=== PATIENT | male | born 1950 | race Caucasian/White ===

== ENCOUNTER 2020-09-14 00:57 | Outpatient (CLI) | payer BC, SELFPAY ==
[2020-09-15 00:20] LABS: SARS-CoV-2 RNA PCR Negative
== END 2020-09-14 00:58 | disposition home or self-care (01) ==
LOC: ANHCOVIDDT 00:57
PROVIDERS: PCP Physician Assistant; Visit Provider Internal Medicine Gastroenterology
DX: Z01.812 Encounter for preprocedural laboratory examination (principal); Z20.822 Contact with and (suspected) exposure to COVID-19
CPT/HCPCS: C9803; U0003; U0005

== ENCOUNTER 2020-09-18 00:49 | Day surgery (SDC) | payer BC, SELFPAY ==
[2020-09-09 08:35] VITALS: BMI 29.2
--- NOTE | 2020-09-17 13:34 | WPDANESEPPF ---
Anes - Initial Pre Proc Eval Procedure: Operation Date: 09/18/20 09:15 Proposed Procedures p Colonoscopy - Nemesio Moore MD Date/Time: 09/17/20 13:34 Surgeon: Nemesio Moore MD Pre Op Diagnosis: occult GI bleed, positive hemocult Patient Data Age: 69 Gender: M Height: 1.8 m Weight: 95 kg Allergies Allergy/AdvReac Type Severity Reaction Status Date / Time erythromycin base Allergy Unknown Nausea Verified 09/18/20 07:53 Penicillins Allergy Unknown Skin Verified 09/18/20 07:53 Reaction procaine Allergy Unknown Rash Verified 09/18/20 07:53 Sulfa (Sulfonamide Allergy Unknown Skin Verified 09/18/20 07:53 Antibiotics) Reaction Home Medications Medication Instructions Recorded Confirmed Type aspirin 81 mg PO DAILY 09/09/20 09/18/20 History atorvastatin 40 mg PO DAILY 09/09/20 09/18/20 History bisoprolol-hydrochlorothiazide 1 tablet PO DAILY 09/09/20 09/18/20 History metformin 1,000 mg PO BID 09/09/20 09/18/20 History quinapril 20 mg PO BID 09/09/20 09/18/20 History sitagliptin [Januvia] 100 mg PO DAILY 09/09/20 09/18/20 History Patient hx anesthesia problems: none Family hx anesthesia problems: none [facility] Past Medical History Medical History (Updated 09/17/20 @ 13:33 by Billy Arellano DO) Diabetes type 2, controlled Hyperlipidemia Hypertension Surgical History Surgical History (Updated 09/17/20 @ 13:33 by Billy Arellano DO) History of appendectomy Social History Social History Smoking status: Never smoker Alcohol intake: never Substance use: never Substance use type: does not use Living arrangements: alone Spiritual care concerns: No Anes - Eval Final PreProcedure Day of Procedure 09/17/20 13:34 Patient weight: overweight Heart: regular rate and rhythm Lungs: clear to auscultation and normal air movement Airway: Mallampati scale class II Neurological: alert and oriented Last oral intake: >/= 8 hours ASA classification: III Emergent: no Anesthetic plan: proceed Anesthesia type and monitoring: general GIVS and standard monitoring Informed Consent: The patient's anesthetic plan and its attendant risks and benefits were discussed with the patient/family/POA. Questions were solicited and answers provided to the satisfaction of the patient/family/POA.
[2020-09-18 07:55] VITALS: BP 161/73; PULSE 62; RESP 15; TEMP 36.1; O2SAT 99; BMI 28.8
[2020-09-18] MEDS: LACTATED RINGERS 1,000 ML 150 ML IV CONT (08:06)
[2020-09-18 08:09] LABS: Glucose Point of Care 155 (65-105)
--- NOTE | 2020-09-18 09:22 | PM.HPGS ---
History of Present Illness History of Present Illness Consent: Risks, benefits, and alternatives have been discussed and questions answered. Patient agrees to proceed with procedure. Chief complaint: occult GI bleed, positive hemocult Narrative: Everette Rosario is a 69 year old male here for screening colonoscopy, last one about 25 years ago. Review of Systems Constitutional: Constitutional: Denies headache(s) and Denies weakness Eyes: Eyes: Denies blurry vision ENT: Reports Normal hearing present, Denies headache(s) and Denies neck pain Cardiovascular: Cardiovascular: Denies chest pain and Denies dyspnea Respiratory: Respiratory: Denies dyspnea Gastrointestinal: Gastrointestinal: Reports no additional gastrointestinal complaints Genitourinary: Genitourinary: Denies dysuria Musculoskeletal: Musculoskeletal: Denies neck pain Integumentary/Breasts: Skin/Breast: Denies dry skin Neurologic: Reports Normal hearing present, Denies headache(s) and Denies weakness Psychiatric: Psychiatric: Denies anxiety Endocrine: Endocrine: Denies change in body appearance Hematologic/Lymphatic: Hematologic/Lymphatic: Denies easy bleeding Allergic/Immunologic: Allergic/Immunologic: Denies urticaria PMFSH Past Medical History Medical History (Updated 09/18/20 @ 09:22 by Nemesio Moore MD) Colon cancer screening Diabetes type 2, controlled Hyperlipidemia Hypertension Surgical History Surgical History (Updated 09/17/20 @ 13:33 by Billy Arellano DO) History of appendectomy Social History Social History Smoking status: Never smoker Alcohol intake: never Substance use: never Substance use type: does not use Living arrangements: alone Spiritual care concerns: No Meds Home Medications and Allergies Home Medications Medication Instructions Recorded Confirmed Type aspirin 81 mg PO DAILY 09/09/20 09/18/20 History atorvastatin 40 mg PO DAILY 09/09/20 09/18/20 History bisoprolol-hydrochlorothiazide 1 tablet PO DAILY 09/09/20 09/18/20 History metformin 1,000 mg PO BID 09/09/20 09/18/20 History quinapril 20 mg PO BID 09/09/20 09/18/20 History sitagliptin [Januvia] 100 mg PO DAILY 09/09/20 09/18/20 History Allergies Allergy/AdvReac Type Severity Reaction Status Date / Time erythromycin base Allergy Unknown Nausea Verified 09/18/20 07:53 Penicillins Allergy Unknown Skin Verified 09/18/20 07:53 Reaction procaine Allergy Unknown Rash Verified 09/18/20 07:53 Sulfa (Sulfonamide Allergy Unknown Skin Verified 09/18/20 07:53 Antibiotics) Reaction Vital Signs Vital Signs - 24 hr 09/18/20 07:55 Temperature 96.9 F L Pulse Rate 62 Respiratory Rate 15 Blood Pressure 161/73 H Pulse Oximetry 99 Exam Const: General: comfortable and no acute distress HENMT: General nose exam: Normal nares present Eyes: General: appearance normal, both eyes and all related structures Neck: Neck: no JVD Resp: Auscultation: clear to auscultation bilaterally Cardio: Rate: regular rate Rhythm: regular rhythm GI: Inspection: non-distended GI Palp: Yes Soft to palpation Skin: General skin exam: normal color Neuro: General: gait normal Speech: normal speech Extrem: General: normal to inspection Psych: Mental Status: mental status grossly normal Assessment and Plan Assessment and plan (1) Colon cancer screening: Code(s): Z12.11 - Encounter for screening for malignant neoplasm of colon Status: Acute Assessment and Plan: will proceed with colonoscopy
[2020-09-18 09:46] VITALS: BP 115/69; PULSE 55; RESP 16; O2SAT 97
[2020-09-18 09:56] VITALS: BP 117/63; PULSE 51; RESP 16; O2SAT 100
[2020-09-18 10:06] VITALS: BP 123/72; PULSE 47; RESP 14; O2SAT 100
[2020-09-18 10:59] LABS: Hematocrit 38.7 % (42.0-52.0); Mean Corpuscular HGB Conc 33.6 g/dl (32-36); Mean Corpuscular Hemoglobin 29.5 pg (26-34); Mean Corpuscular Volume 87.8 fl (80-100); Mean Platelet Volume 9.7 fl (7.4-10.4); Platelet Count Result 215 k/mm3 (150-375); Red Blood Count 4.41 M/mm3 (4.6-6.20); Red Cell Distribution Width 13.4 % (11.5-14.5); White Blood Count 5.8 K/mm3 (4.5-10.0)
--- NOTE | 2020-09-18 11:01 | SUR.PHASEII ---
blood drawn, sent to lab. CT scheduled for pt
[2020-09-18 11:14] LABS: Alanine Aminotransferase 35 U/L (4-50); Albumin Level 4.3 g/dL (3.5-5.1); Alkaline Phosphatase 68 U/L (38-126); Anion Gap 7 mmol/L (8-16); Aspartate Amino Transferase 36 U/L (17-59); Bilirubin,Total 0.6 mg/dL (0.2-1.3); Blood Urea Nitrogen 15 mg/dL (9-20); Calcium 9.1 mg/dL (8.4-10.2); Carbon Dioxide 31 mmol/L (22-30); Chloride 99 mmol/L (98-107); Estimated CRCL calculation 70 ml/min; Estimated Glomerular Filt Rate > 60; Glucose 119 mg/dL (75-110); Potassium 4.1 mmol/L (3.4-5.0); Sodium 137 mmol/L (137-145)
[2020-09-18 11:43] LABS: Carcinoembryonic Antigen 0.5 ng/mL (0.0-3.0)
== END 2020-09-18 11:30 | disposition home or self-care (01) ==
PROVIDERS: PCP Physician Assistant; Visit Provider Internal Medicine Gastroenterology
PROC: 0DJD8ZZ Inspection of Lower Intestinal Tract, Via Natural or Artificial Opening Endoscopic (ICD-10-PCS; CPT 45378; principal; 2020-09-18 09:15)
DX: Z12.11 Encounter for screening for malignant neoplasm of colon (principal); C19 Malignant neoplasm of rectosigmoid junction; D12.2 Benign neoplasm of ascending colon; K57.30 Diverticulosis of large intestine without perforation or abscess without bleeding; I10 Essential (primary) hypertension; E78.5 Hyperlipidemia, unspecified; E11.9 Type 2 diabetes mellitus without complications; Z79.82 Long term (current) use of aspirin; Z79.84 Long term (current) use of oral hypoglycemic drugs
CPT/HCPCS: 45385; 45380; 45381; 36415; 80053; 82378; 85027; 88305; J2704; J7120

== ENCOUNTER 2020-09-24 10:52 | Outpatient (CLI) | payer BC, SELFPAY ==
--- NOTE | ~2020-09-24 | CT_ITS ---
EXAMINATION: CT abdomen pelvis w con DATE: 09/24/2020 11:29 INDICATION: Rectosigmoid mass. TECHNIQUE: Computed tomography (CT) of the abdomen and pelvis was performed with 100 cc Omnipaque 350 intravenous contrast. The dose-length product was 929.79 mGy-cm. Automated exposure control and iter ative reconstruction technique were employed. COMPARISON: None. FINDINGS: There is dependent atelectasis. Mild cardiomegaly. Small hiatal hernia. No significant pleu ral or pericardial effusion. There is atherosclerosis of the coronary arteries and aorta. No aneurysm . Fatty infiltration of the liver. Gallbladder is present. The spleen, pancreas, adrenal glands and rig ht kidney are unremarkable. There is a hypodense 1.3 cm left renal mass, most likely benign cyst. The re is a duodenal diverticulum. Colonic diverticulosis. There is mild thickening of the right lateral wall of the rectum image 165, suspicious for known mass. Prostate gland is mildly prominent with coar se central calcifications. No osteolytic or osteoblastic lesions. Bladder is moderately distended. There are mildly prominent lymph nodes along the external iliac chains with normal fatty hilum, likel y reactive. IMPRESSION: 1. Mild thickening right lateral wall of the rectum, suspicious for known mass. Recommend correlation with colonoscopy findings. 2: Cardiomegaly. 3: Fatty infiltration of the liver. Reviewed, dictated and finalized at location A. S OPERATIONS SPECIALIST
== END 2020-09-24 10:53 | disposition home or self-care (01) ==
PROVIDERS: PCP Physician Assistant; Visit Provider Internal Medicine Gastroenterology
DX: K63.89 Other specified diseases of intestine (principal); I51.7 Cardiomegaly; K76.0 Fatty (change of) liver, not elsewhere classified
CPT/HCPCS: 74177; Q9967

== ENCOUNTER 2020-10-09 14:30 | Outpatient (CLI) | payer BC, SELFPAY | END 2020-10-09 14:31 | disposition home or self-care (01) | LOC: ANHIMG 14:31 | PROVIDERS: PCP Physician Assistant; Visit Provider Surgery | DX: C20 Malignant neoplasm of rectum (principal) | CPT/HCPCS: 99199; 72195 ==

== ENCOUNTER 2020-10-10 13:32 | Outpatient (CLI) | payer BC, SELFPAY ==
--- NOTE | ~2020-10-10 | MR_ITS ---
EXAMINATION: MR pelvis wo/w con INDICATION: Rectal cancer TECHNIQUE: Coronal SSFSE ARC, Coronal, Axial, and Sagittal T2 FRFSE small qpahd-za-zchj, Coronal 2D F IESTA FatSat, Axial SSFSE BH ARC, Axial 3D DualEcho BH, Axial STIR, Axial DWI b=500, pre and dynamic postcontrast Axial LAVA ARC COMPARISON: CT, 09/24/2020 CONTRAST: Multihance, 19 cc FINDINGS: There is asymmetric rectal wall thickening approximately 10 cm from the anal verge in the a laly of the biopsied malignancy described on recent colonoscopy. Enhancement involves the full-thickne ss of the rectal wall but does not appear to extend beyond the muscularis propria. No pathologically enlarged perirectal lymph nodes are identified. There are left groin lymph nodes which measure up to 11 mm in short axis. There are no dilated loops of bowel. Multiple bladder diverticula are noted. The visualized osseous structures are unremarkable. IMPRESSION: 1. Asymmetric wall thickening of the rectum in the area of the known malignancy described in colonosc opy report which does not appear to extend beyond the muscularis propria. 2. Left inguinal lymphadenopathy of unclear significance. Reviewed, dictated and finalized at location A. AUDITOR IMPRESSION: 1. Asymmetric wall thickening of the rectum in the area of the known malignancy described in colonoscopy report which does not appear to extend beyond the mus cularis propria. 2. Left inguinal lymphadenopathy of unclear significance.
== END 2020-10-10 13:33 | disposition home or self-care (01) ==
PROVIDERS: PCP Physician Assistant; Visit Provider Surgery
DX: C20 Malignant neoplasm of rectum (principal); R59.0 Localized enlarged lymph nodes
CPT/HCPCS: 72197; A9577

== ENCOUNTER 2020-10-22 13:38 | Outpatient (CLI) | payer BC, SELFPAY ==
--- NOTE | 2020-10-22 14:34 | ECG_ITS ---
Measurements Intervals Raymond Rate: 54 P: 72 LA: 233 QRS: -34 QRSD: 155 T: 7 QT: 475 QTc: 453 Interpretive Statements SINUS BRADYCARDIA WITH FIRST DEGREE AV BLOCK LEFT AXIS DEVIATION RIGHT BUNDLE BRANCH BLOCK BASELINE ARTIFACT- I, II, III, AVR, AVL, AVF ABNORMAL ECG Electronically Signed On 10-22-2020 14:44:32 MANAGER BENCH by Nader Sanchez D.O.
== END 2020-10-22 13:39 | disposition home or self-care (01) ==
LOC: ANHSURGERY 13:41
PROVIDERS: PCP Physician Assistant; Visit Provider Surgery
DX: C20 Malignant neoplasm of rectum (principal); I10 Essential (primary) hypertension; I45.10 Unspecified right bundle-branch block; R00.1 Bradycardia, unspecified; I44.0 Atrioventricular block, first degree
CPT/HCPCS: 36415; 86850; 86900; 86901; 93005

== ENCOUNTER → 2020-10-26 00:49 | Outpatient (CLI) | payer BC, SELFPAY ==
[2020-10-26 19:47] LABS: SARS-CoV-2 RNA PCR Negative
== END ==
PROVIDERS: PCP Physician Assistant; Visit Provider Surgery
DX: Z01.812 Encounter for preprocedural laboratory examination (principal); Z20.822 Contact with and (suspected) exposure to COVID-19
CPT/HCPCS: C9803; U0003; U0005

== ENCOUNTER 2020-10-30 15:29 | Inpatient (IN) | payer BC, MEDICARE, SELFPAY ==
[2020-10-22 14:17] VITALS: BP 172/78; PULSE 58; RESP 20; TEMP 36.9; O2SAT 97; BMI 30.3
--- NOTE | 2020-10-29 09:45 | WPDANESEPPF ---
Anes - Initial Pre Proc Eval Procedure: Operation Date: 10/30/20 09:00 Proposed Procedures p Hand Assisted Laparoscopic Low Anterior Resection, Possible Open, Possible Ostomy - Pawel Banks DO Date/Time: 10/29/20 09:45 Surgeon: Pwael Banks DO Pre Op Diagnosis: Rectal Cancer Patient Data Age: 70 Gender: M Height: 1.8 m Weight: 98.7 kg Last Vital Signs Temp 36.9 C 10/22/20 14:17 Pulse 58 L 10/22/20 14:17 Resp 20 10/22/20 14:17 BP 172/78 H 10/22/20 14:17 Pulse Ox 97 10/22/20 14:17 Allergies Allergy/AdvReac Type Severity Reaction Status Date / Time erythromycin base Allergy Unknown Nausea Verified 10/30/20 07:55 Penicillins Allergy Unknown Skin Verified 10/30/20 07:55 Reaction procaine Allergy Unknown Rash Verified 10/30/20 07:55 Sulfa (Sulfonamide Allergy Unknown Skin Verified 10/30/20 07:55 Antibiotics) Reaction Home Medications Medication Instructions Recorded Confirmed Type aspirin 81 mg PO DAILY 09/09/20 10/30/20 History atorvastatin 40 mg PO DAILY 09/09/20 10/29/20 History bisoprolol-hydrochlorothiazide 1 tablet PO DAILY 09/09/20 10/30/20 History metformin 1,000 mg PO BID 09/09/20 10/29/20 History quinapril 20 mg PO BID 09/09/20 10/29/20 History sitagliptin [Januvia] 100 mg PO DAILY 09/09/20 10/29/20 History metronidazole 500 mg tablet See Rx Instructions .ROUTE 10/22/20 10/29/20 Rx .COMPLEX #3 tablet pdtjoafg-fhk-NS-lycopen-lutein 1 tablet PO DAILY 10/22/20 10/29/20 History [Centrum Silver Ultra Men's] jm-np-raax-FA-herbal cmplx#190 1 tablet PO DAILY 10/22/20 10/29/20 History [Vitamin D3 Complete] neomycin 500 mg tablet See Rx Instructions .ROUTE 10/22/20 10/29/20 Rx .COMPLEX #6 tablet omega 9-unm-iii-fish oil [Fish Oil] 1 cap PO DAILY 10/22/20 10/29/20 History Patient hx anesthesia problems: none Family hx anesthesia problems: none [facility] Past Medical History Medical History Colon cancer screening Colon carcinoma Diabetes type 2, controlled Hyperlipidemia Hypertension Surgical History Surgical History History of appendectomy History of colonoscopy History of eye surgery Family History Family History Father Cerebrovascular accident Dementia Diverticulitis Mother Diabetes mellitus Heart disease Dementia Sibling Cancer Social History Social History Smoking status: Former smoker Tobacco type: cigars Second hand tobacco smoke exposure: No Alcohol intake: never Substance use: never Substance use type: does not use Living arrangements: alone Additional occupation/education comments: [employer] Spiritual care concerns: No Anes - Eval Final PreProcedure Day of Procedure 10/29/20 09:45 Patient weight: obese Heart: regular rate and rhythm Lungs: clear to auscultation and normal air movement Airway: Mallampati scale class II Neurological: alert and oriented Last oral intake: >/= 8 hours ASA classification: III Emergent: no Anesthetic plan: proceed Anesthesia type and monitoring: general ETT Informed Consent: The patient's anesthetic plan and its attendant risks and benefits were discussed with the patient/family/POA. Questions were solicited and answers provided to the satisfaction of the patient/family/POA.
[2020-10-30] VITALS (16 sets, daily range): BP systolic 104–178; BP diastolic 57–97; PULSE 55–71; RESP 10–20; TEMP 36.1–36.7; O2SAT 98–100
[2020-10-30] MEDS: ACETAMINOPHEN 500 MG TABLET 1000 MG PO ×3 (08:05→23:36)
[2020-10-30] MEDS: LACTATED RINGERS 1,000 ML 30 ML IV CONT ×2 (08:19→13:41)
[2020-10-30] MEDS: KETOROLAC 15 MG/ML VIAL (*BKC) IV PUSH (08:20)
[2020-10-30 08:25] LABS: Glucose Point of Care 141 (65-105)
--- NOTE | 2020-10-30 08:29 | WPDHPUPDATE1 ---
History and Physical Update Update Date/Time: 10/30/20 08:29 History and Physical has been reviewed, including an updated exam of the patient. There are NO changes in the patient's condition. Risks, benefits, and alternatives have been discussed and questions answered. Patient agrees to proceed with procedure.
--- NOTE | 2020-10-30 08:56 | WPDANESPNB ---
Anes - Peripheral Nerve Block Date/Time: 10/30/20 08:56 I have discussed with the patient/family/POA the placement of a peripheral nerve block for post-operative pain management, including associated risks, benefits, complications, and side effects. Alternative methods of post-operative analgesia were detailed. Questions were solicited and answers provided to the satisfaction of the patient/family/POA. Time-Out: A pre-procedural Time-Out was completed immediately before starting the procedure and confirmed: Patient Identification, Site, Procedure, Patient Position and the Availability of Requisite Equipment. Clinical Indications: Acute post-operative pain management requested by the operative surgeon. Nerve Block Insertion Note Anes-nerve block: other (b/l t7 maximo block) Patient position: other (sitting) Skin prep: chlorhexidine Needle: 22 gauge, stimulating, insulated echogenic needle. Needle length: 80 mm Technique: ultrasound Technique comment: in plane Injectate: bupivacaine 0.5% with epi 5 mcg/ml (20cc/side) Procedure start time:: 845 Procedure end time:: 850
[2020-10-30] MEDS: ceFAZolin 2 GM/D5W 50 ML 2 GM/50 ML BAG IVPB (09:05)
[2020-10-30] MEDS: metroNIDAZOLE 500 MG/ISO 100ML 500 MG/100 ML BAG 100 MG IVPB (09:05)
--- NOTE | 2020-10-30 10:15 | SUR.OPER ---
PHARMACY CALLED PRIOR TO OR START TO VERIFY PROCAINE ALLERGY AND USE OF EXPAREL/PHARMACIST VERIFIED EXPAREL CAN BE USED AND ANESTHESIA AWARE AND DR CHAKRABORTY AWARE.
--- NOTE | 2020-10-30 10:34 | SUR.OPER ---
BOWEL PREP AT 0921 PER M WALKER DIGITAL RETOUCHER/1000ML IV NS IRRIGATION INSTILLED IN INCREMENTS OF 200ML TOTALING 820MLS TOTAL TILL CLEAR SLOWLY VIA MALECOT 36FR. FOLLOWING SALINE WITH A BETADINE IRRIGATION VIA BULB SYRINGE 400ML. RECTAL MALECOT TUBE CONNECTED TO A 2000ML U/A BAG SECURED VIA STRAP TO POSTERIOR LEFT THIGH/GAUZE PADDING BETWEEN TUBING AND SKIN/BAG TO GRAVITY AT FOOT OF BED AND DRAINING BETADINE.
--- NOTE | 2020-10-30 11:32 | SUR.OPER ---
SEE ANESTHESIA RECORD FOR SPY AGENT GREEN 25MG PER VIAL/LOT , EXP NOV 2021. SEE RECORD FOR IV ADMINISTRATION
--- NOTE | 2020-10-30 11:45 | SUR.OPER ---
SPECIMEN FRESH TO PATHOLOGY PER PCT NO AND GIVEN TO CIERRA Hobbs. (SIGMOID/RECTUM)
--- NOTE | 2020-10-30 11:58 | SUR.OPER ---
BLOOD SUGAR [id number].
[2020-10-30 12:07] LABS: Glucose Point of Care 195 (65-105)
--- NOTE | 2020-10-30 12:39 | SUR.OPER ---
ostomy 12:39 start
--- NOTE | 2020-10-30 12:58 | SUR.OPER ---
EBL 200ML
[2020-10-30] MEDS: ceFAZolin SODIUM 1 GM VIAL IV PUSH (13:05)
--- NOTE | 2020-10-30 13:44 | PM.PROC ---
Procedure Note - Detailed Date of procedure: 10/30/20 Pre-op diagnosis: Rectal Cancer Post-op diagnosis: same Procedure performed: 1. Hand assisted laparoscopic low anterior resection with low pelvic anastomosis, with loop ileostomy 2. Laparoscopic mobilization of splenic flexure Description of procedure: Procedure as well as risks benefits and alternatives were explained to the patient. Written consent was obtained and placed in chart prior to procedure. Patient was brought back to surgical suite. He was placed supine on operating table. Time-out was done to confirm patient procedure. He was then intubated by the anesthesia department. He was re-positioned to modified lithotomy position. His abdomen was prepped and draped in sterile fashion using chlorhexidine prep. His rectum was irrigated with Betadine and his perirectal area was prepped and draped in sterile fashion using Betadine prep. A 7 centimeter vertical incision was made just inferior to the umbilicus using a 15 blade scalpel. Electrocautery was used for hemostasis and for dissection down through Rob's fascia. The linea alba was then incised using electrocautery. The peritoneum was bluntly entered using a curved hemostats. A carefully inspected the abdomen through the small hand port incision, and then placed the wound protector at this incision followed by the gel port with a 5 millimeter trocar placed through it. Carbon dioxide insufflation was then used to create a pneumoperitoneum. The abdomen was inspected, and no significant abnormalities were identified. The patient was then placed in steep Trendelenburg position and rotated to the right. Exparel was infiltrated bilaterally along the abdominal wall to perform a transversus abdominis plane block. A 5 millimeter incision was made in the suprapubic region and in the right upper quadrant and 5 millimeter ports were placed under direct visualization. A 12 millimeter incision was made in the right lower quadrant, and a 12 millimeter port was placed under direct visualization. Another 5 mm port was placed in the left lower quadrant under direct visualization. I placed my left hand through the GelPort and carefully inspected the colon. The sigmoid colon was retracted anteriorly to tent up the inferior mesenteric artery and mesocolon. The medial side of the peritoneum was scored using hook electrocautery. I entered into the avascular retroperitoneal plane and continued the medial to lateral dissection. The left ureter was identified and preserved in its location throughout the entire case. I continued dissection with hook electrocautery and ligasure bipolar cautery to clear off the adventitia around the inferior mesenteric artery. Once the inferior mesenteric artery was isolated, I then ligated it with the ligasure bipolar cautery. The ureter was identified and position was verified before ligating the vessel. I then continued along the medial to lateral plane and dissected out to the lateral peritoneal attachments of the descending and sigmoid colon. I then continued this dissection distally along the upper rectum. The sigmoid colon was then retracted further medially and the lateral peritoneal attachments were taken down using hook electrocautery. I continued this dissection up to the descending colon, and as I a required further mobilization of the descending colon I then took down the splenic flexure using ligasure bipolar cautery. The descending colon appeared mobile enough to come down into the pelvis. I then continued the dissection along the mesorectal plane down low into the pelvis and on to the distal rectum. I began this dissection posteriorly and then came along each lateral side with LigaSure. I then also incised the peritoneum anteriorly and continued the total mesial rectal excision plane anteriorly. I was able to identify the tattooed region and ensure that I was distal to this. The echelon 60 millimeter blue load stapler
--- NOTE | 2020-10-30 15:33 | PC.NURSE ---
This patient, Everette Rosario, was admitted to 3 [facility] Surg Room 300-01. Patient/family oriented to hospital policies and general routines including ID bracelet, bed and alarms, visiting hours, pain management, procedures, bathroom and other care routines, personal items, smoking policy, room service/diet, and visiting hours. Information on how to activate the Rapid Response Team has been discussed. Patient/Family are encouraged to report perceived risks to care and to ask questions if they do not understand what they are told or what they should do.
[2020-10-30] MEDS: ONDANSETRON INJ 4 MG/2 ML VIAL IV PUSH (15:50)
[2020-10-30] MEDS: LACTATED RINGERS 1,000 ML 100 ML IV CONT (15:52)
[2020-10-30 17:28] LABS: Glucose Point of Care 142 (65-105)
[2020-10-30] MEDS: ENOXAPARIN 30 MG/0.3 ML SYRINGE SUB-Q (20:04)
[2020-10-30 20:28] LABS: Glucose Point of Care 146 (65-105)
[2020-10-30 20:39] LABS: Glucose Point of Care 162 (65-105)
[2020-10-31] MEDS: LACTATED RINGERS 1,000 ML 100 ML IV CONT (01:54)
[2020-10-31 04:18] VITALS: BP 132/59; PULSE 71; RESP 18; TEMP 36.7; O2SAT 98
[2020-10-31 06:16] LABS: Basophils Percent Auto 0.1 % (0.2-1.2); Hematocrit 31.7 % (42.0-52.0); Hemoglobin 10.5 g/dL (14.0-18.0); Immature Granulocyte Absolute 0.23 K/mm3 (0.00-0.031); Immature Granulocyte Percent A 2.9 % (0-0.5); Lymphocytes Absolute Auto 0.88 K/mm3 (0.9-3.2); Lymphocytes Percent Auto 10.9 % (18.3-44.2); Mean Corpuscular HGB Conc 33.1 g/dl (32-36); Mean Corpuscular Hemoglobin 29.1 pg (26-34); Mean Corpuscular Volume 87.8 fl (80-100); Mean Platelet Volume 10.4 fl (7.4-10.4); Monocytes Absolute Auto 0.8 K/mm3 (0.1-0.6); Monocytes Percent Auto 10.2 % (2.6-8.5); Neutrophils Absolute Auto 6.1 K/mm3 (1.3-6.7); Neutrophils Percent Auto 75.9 % (45.5-73.1); Platelet Count Result 184 k/mm3 (150-375); Red Blood Count 3.61 M/mm3 (4.6-6.20); Red Cell Distribution Width 13.7 % (11.5-14.5); White Blood Count 8.1 K/mm3 (4.5-10.0)
[2020-10-31] MEDS: ACETAMINOPHEN 500 MG TABLET 1000 MG PO ×4 (06:22→23:37)
[2020-10-31 06:24] LABS: Anion Gap 3 mmol/L (8-16); Blood Urea Nitrogen 12 mg/dL (9-20); Calcium 8.2 mg/dL (8.4-10.2); Carbon Dioxide 29 mmol/L (22-30); Chloride 106 mmol/L (98-107); Estimated CRCL calculation 100 ml/min; Estimated Glomerular Filt Rate > 60; Glucose 127 mg/dL (75-110); Potassium 4.2 mmol/L (3.4-5.0); Sodium 138 mmol/L (137-145)
--- NOTE | 2020-10-31 06:55 | PC.NURSE ---
10/31/20 at 2145--assisted patient out of bed, ambulated to door and back to bed with 2 assist, patient tolerated well.--TDialRNC
--- NOTE | 2020-10-31 07:59 | WPDANESPN ---
Anes - Prog Note Post-Op Date/Time: 10/31/20 07:59 Cardiovascular status: normal Respiratory status: normal Airway patency: baseline Mental status: baseline Post-Op hydration status: normal Vital Signs: Last Vital Signs Temp 98.0 F 10/31/20 04:18 Pulse 71 10/31/20 04:18 Resp 18 10/31/20 04:18 BP 132/59 L 10/31/20 04:18 Pulse Ox 98 10/31/20 04:18 Pain Score (VAS): 09/01 I/O: Intake & Output 10/30/20 10/30/20 10/31/20 15:59 23:59 07:59 Intake Total 7284 652 6772 Output Total 40 1000 Balance 1010 240 250 Laboratory Tests 10/31/20 05:09 10/31/20 05:09 10/30/20 10/30/20 10/30/20 08:18 11:57 13:48 WBC RBC Hgb Hct MCV MCH MCHC RDW Plt Count MPV Immature Gran % (Auto) Neut % (Auto) Lymph % (Auto) [place] % (Auto) Eos % (Auto) Baso % (Auto) Lymph # (Auto) [place] # (Auto) Eos # (Auto) Baso # (Auto) Abs Immat Gran (auto) Absolute Neuts (auto) Absolute Nucleated RBC Nucleated RBC % Sodium Potassium Chloride Carbon Dioxide Anion Gap BUN Creatinine Estim Creat Clear Calc Estimated GFR Glucose POC Capillary Glucose 141 H 195 H 162 H Calcium 10/30/20 10/30/20 10/31/20 17:25 20:22 05:09 WBC 8.1 RBC 3.61 L Hgb 10.5 L Hct 31.7 L MCV 87.8 MCH 29.1 MCHC 33.1 RDW 13.7 Plt Count 184 MPV 10.4 Immature Gran % (Auto) 2.9 H Neut % (Auto) 75.9 H Lymph % (Auto) 10.9 L [place] % (Auto) 10.2 H Eos % (Auto) 0.0 Baso % (Auto) 0.1 L Lymph # (Auto) 0.88 L [place] # (Auto) 0.8 H Eos # (Auto) 0.0 Baso # (Auto) 0.0 Abs Immat Gran (auto) 0.23 H Absolute Neuts (auto) 6.1 Absolute Nucleated RBC 0.0 Nucleated RBC % 0.0 Sodium Potassium Chloride Carbon Dioxide Anion Gap BUN Creatinine Estim Creat Clear Calc Estimated GFR Glucose POC Capillary Glucose 142 H 146 H Calcium 10/31/20 05:09 WBC RBC Hgb Hct MCV MCH MCHC RDW Plt Count MPV Immature Gran % (Auto) Neut % (Auto) Lymph % (Auto) [place] % (Auto) Eos % (Auto) Baso % (Auto) Lymph # (Auto) [place] # (Auto) Eos # (Auto) Baso # (Auto) Abs Immat Gran (auto) Absolute Neuts (auto) Absolute Nucleated RBC Nucleated RBC % Sodium 138 Potassium 4.2 Chloride 106 Carbon Dioxide 29 Anion Gap 3 L BUN 12 Creatinine 0.70 Estim Creat Clear Calc 100 Estimated GFR > 60 Glucose 127 H POC Capillary Glucose Calcium 8.2 L Patient Feedback: Patient satisfied with anesthetic care.
[2020-10-31 08:00] VITALS: BP 139/60; PULSE 65; RESP 16; TEMP 36.1; O2SAT 98
[2020-10-31 08:14] LABS: Glucose Point of Care 132 (65-105)
[2020-10-31 08:32] VITALS: PULSE 64
[2020-10-31] MEDS: bisoproloL fumarate 5 MG TABLET PO (08:32)
[2020-10-31] MEDS: ASPIRIN 81 MG CHEWABLE TABLET PO (08:32)
[2020-10-31] MEDS: hydroCHLOROthiazide 6.25 MG TABLET PO (08:32)
[2020-10-31] MEDS: ATORVASTATIN 40 MG TABLET PO (08:32)
[2020-10-31] MEDS: ENOXAPARIN 30 MG/0.3 ML SYRINGE SUB-Q ×2 (08:33→20:42)
--- NOTE | 2020-10-31 10:41 | PM.PNGS ---
Progress Note: A&P Assessment and Plan (1) Rectal cancer: Code(s): C20 - Malignant neoplasm of rectum Status: Acute Assessment and Plan: POD#1 and doing well. Pain well-controlled. Incisions look good and passing some gas through the loop ileostomy. Wound care nurses consulted for education on ostomy care. Will have the nurse D/C guerrero catheter today. Advance to full liquids. Stop IVF and add oral analgesics as needed. Awaiting return of bowel function. Encouraged increasing activity, ambulating in halls, IS use. (2) Diabetes type 2, controlled: Qualifiers: Diabetes mellitus complication status: without complication Diabetes mellitus longterm insulin use: without intermediate teacher use Qualified Code(s): E11.9 - Type 2 diabetes mellitus without complications Code(s): E11.9 - Type 2 diabetes mellitus without complications Status: Acute Assessment and Plan: BS 130-140's. Consider restarting home medications when tolerating a full liquid diet. (3) Hypertension: Qualifiers: Hypertension type: essential hypertension Qualified Code(s): I10 - Essential (primary) hypertension Code(s): I10 - Essential (primary) hypertension Status: Acute Assessment and Plan: BP stable. Continue to monitor. Additional Plan Discussed plan of care with Dr. Banks. Subjective Subjective Date/Time Seen: 10/31/20 10:41 Post Op day: 1 (DANIELLA low anterior resection with loop ileostomy, lap. mobilization of splenic flexure) Patient reports: tolerating liquids well, flatus and nausea Interval history: Reports passing gas into the ileostomy bag and also via rectum. Reports one episode of vomiting after surgery yesterday afternoon, but no vomiting since. Reports still some mild intermittent nausea, but states this is normal for him with sinus drainage. No other complaints. Review of Systems Review of Systems: All systems reviewed & are unremarkable except as noted in HPI and below Cardiovascular: Cardiovascular: Reports no additional cardiovascular complaints, Denies chest pain and Denies leg edema Respiratory: Respiratory: Reports no additional respiratory complaints, Denies cough and Denies dyspnea Gastrointestinal: Gastrointestinal: Reports as per HPI and Reports no additional gastrointestinal complaints Exam Const: General: no acute distress, alert and awake Orientation/consciousness: patient oriented x3 Resp: Effort & Inspection: normal respiratory effort Auscultation: clear to auscultation bilaterally Cardio: Rate: regular rate Rhythm: regular rhythm GI: Inspection: incision (Abdominal incisions clean and dry, glue intact.) GI Palp: Yes Soft to palpation and Yes Tenderness to palpation present (GI) (incisional) Auscultation: normal bowel sounds Other: Right sided ileostomy with dark pink, mildly edematous stoma, minimal serosanguineous drainage and some gas in the bag. Skin: General skin exam: pallor Rashes: no rashes Neuro: General: moves all extremities and no focal motor deficits Cranial nerves: Yes CN's II-XII intact bilaterally Speech: normal speech Extrem: General: no clubbing, cyanosis or edema and no calf tenderness Psych: Mental Status: mental status grossly normal Insight: Good insight present (Psych) Judgement: Good judgement present (Psych) Objective Data Vital Signs Vital Signs: Vital Signs - 24 hr 10/30/20 13:41 10/30/20 13:56 10/30/20 14:11 Temperature 97.8 F Pulse Rate 61 56 L 55 L Respiratory Rate 14 17 12 Blood Pressure 151/97 H 143/66 H 149/62 H Pulse Oximetry 100 100 100 10/30/20 14:26 10/30/20 14:41 10/30/20 14:56 Temperature Pulse Rate 56 L 59 L 58 L Respiratory Rate 12 10 L 11 L Blood Pressure 104/87 167/73 H 169/75 H Pulse Oximetry 100 98 98 10/30/20 15:11 10/30/20 15:26 10/30/20 15:29 Temperature 97.0 F L Pulse Rate 62 68 61 Respiratory Rate 10 L 20 16 Blood Pressure 172/72 H 166/74 H 147/70 H Pulse
[2020-10-31 11:56] LABS: Glucose Point of Care 178 (65-105)
[2020-10-31 12:00] VITALS: BP 129/55; PULSE 55; RESP 16; TEMP 36.3; O2SAT 100
[2020-10-31 17:37] LABS: Glucose Point of Care 119 (65-105)
[2020-10-31] MEDS: metFORMIN HCL 500 MG TABLET 1000 MG PO (17:59)
[2020-10-31] MEDS: FLUTICASONE PROPIONATE 0.05% NA SPR 16 GM BTL (*BKC) 2 SPRAY NASAL (18:00)
[2020-10-31 21:11] LABS: Glucose Point of Care 137 (65-105)
[2020-10-31 21:51] VITALS: BP 166/65; PULSE 58; RESP 18; TEMP 36.8; O2SAT 100
[2020-11-01 05:32] VITALS: BP 149/73; PULSE 65; RESP 18; TEMP 36.7; O2SAT 98
[2020-11-01 06:24] LABS: Alanine Aminotransferase 23 U/L (4-50); Albumin Level 3.3 g/dL (3.5-5.1); Alkaline Phosphatase 48 U/L (38-126); Anion Gap 2 mmol/L (8-16); Aspartate Amino Transferase 34 U/L (17-59); Bilirubin,Total 0.6 mg/dL (0.2-1.3); Blood Urea Nitrogen 9 mg/dL (9-20); Calcium 8.2 mg/dL (8.4-10.2); Carbon Dioxide 31 mmol/L (22-30); Chloride 104 mmol/L (98-107); Estimated CRCL calculation 87 ml/min; Estimated Glomerular Filt Rate > 60; Glucose 122 mg/dL (75-110); Sodium 137 mmol/L (137-145)
[2020-11-01] MEDS: ACETAMINOPHEN 500 MG TABLET 1000 MG PO (06:46)
[2020-11-01 08:11] VITALS: BP 164/74; PULSE 63; RESP 16; O2SAT 98
[2020-11-01 08:14] VITALS: PULSE 63
[2020-11-01] MEDS: hydroCHLOROthiazide 6.25 MG TABLET PO (08:14)
[2020-11-01] MEDS: ATORVASTATIN 40 MG TABLET PO (08:14)
[2020-11-01] MEDS: ASPIRIN 81 MG CHEWABLE TABLET PO (08:14)
[2020-11-01] MEDS: bisoproloL fumarate 5 MG TABLET PO (08:14)
[2020-11-01] MEDS: metFORMIN HCL 500 MG TABLET 1000 MG PO ×2 (08:15→19:27)
[2020-11-01] MEDS: ENOXAPARIN 30 MG/0.3 ML SYRINGE SUB-Q ×2 (08:15→20:33)
[2020-11-01] MEDS: FLUTICASONE PROPIONATE 0.05% NA SPR 16 GM BTL (*BKC) 2 SPRAY NASAL (08:16)
[2020-11-01 09:03] LABS: Glucose Point of Care 122 (65-105)
--- NOTE | 2020-11-01 12:03 | PM.PNGS ---
Progress Note: A&P Assessment and Plan (1) Rectal cancer: Code(s): C20 - Malignant neoplasm of rectum Status: Acute Assessment and Plan: Final pathology still pending Advance to diabetic regular diet today Increase activity As long as ileostomy is functioning and patient able to handle wound care at home, will plan to possibly discharge tomorrow. Will arrange hypaque enema as outpatient in 2 weeks Patient advised on risks of dehydration from ileostomy fluid losses, and also advised that a couple small bowel movements from the rectum or passing blood clots/mucus is normal (2) BMI 29.0-29.9,adult: Code(s): Z68.29 - Body mass index [BMI] 29.0-29.9, adult Status: Acute (3) Diabetes type 2, controlled: Qualifiers: Diabetes mellitus manager terminal insulin use: without manager terminal use Diabetes mellitus complication status: without complication Qualified Code(s): E11.9 - Type 2 diabetes mellitus without complications Code(s): E11.9 - Type 2 diabetes mellitus without complications Status: Acute Assessment and Plan: On home meds (4) Hypertension: Qualifiers: Hypertension type: essential hypertension Qualified Code(s): I10 - Essential (primary) hypertension Code(s): I10 - Essential (primary) hypertension Status: Acute Assessment and Plan: On home meds Subjective Subjective Date/Time Seen: 11/01/20 12:03 Interval history: Tolerating full liquids. No nausea or vomiting. Output picking up in ileostomy. Patient had ileostomy teaching today. Exam GI: Inspection: incision (intact with glue. minimal bruising.) Other: loop ileostomy with stool output, mild edema but appears healthy and functioning Objective Data Vital Signs Vital Signs: Vital Signs - 24 hr 10/31/20 21:51 11/01/20 05:32 11/01/20 08:11 Temperature 36.8 C 36.7 C Pulse Rate 58 L 65 63 Respiratory Rate 18 18 16 Blood Pressure 166/65 H 149/73 H 164/74 H Pulse Oximetry 100 98 98 11/01/20 08:14 Temperature Pulse Rate 63 Respiratory Rate Blood Pressure Pulse Oximetry Intake/Output Intake/Output: Intake & Output 10/29/20 10/30/20 10/31/20 11/01/20 23:59 23:59 23:59 23:59 Intake Total 1290 3190 850 Output Total 40 2100 1625 Balance 1250 1090 -903 Meds/Results Medications: Active Medications Generic Name Dose Route Start Last Admin Trade Name Freq PRN Reason Stop Dose Admin Acetaminophen 650 mg 11/01/20 11:42 Acetaminophen 325 Mg Tablet PO Q6HR PRN Mild Pain (1-3) Hydrocodone Bitart/Acetaminophen 1 tab 10/31/20 12:24 Hydrocodone/Acetaminophen (*Crx) 5-325 Mg Tablet PO Q4H PRN Pain Rated 4-6 Hydrocodone Bitart/Acetaminophen 1 tab 10/31/20 12:24 Hydrocodone/Acetaminophen (*Crx) 10-325 Mg Tablet PO Q4H PRN Pain Rated 7-10 Aspirin 81 mg 10/31/20 08:00 11/01/20 08:14 Aspirin 81 Mg Chewable Tablet PO 81 mg DAILY@0800 ALAN Administration Atorvastatin Calcium 40 mg 10/31/20 09:00 11/01/20 08:14 Atorvastatin 40 Mg Tablet PO 40 mg DAILY ALAN Administration Bisoprolol Fumarate 5 mg 10/31/20 09:00 11/01/20 08:14 Bisoprolol Fumarate 5 Mg Tablet PO 5 mg QAM ALAN Administration Dextrose 12.5 gm 10/31/20 12:27 Dextrose 50% 25 Gm/50 Ml Syringe IV PUSH PRN PRN Hypoglycemia Protocol Enoxaparin Sodium 30 mg 10/30/20 21:00 11/01/20 08:15 Enoxaparin 30 Mg/0.3 Ml Syringe SUB-Q 30 mg Q12HR ALAN Administration Fluticasone Propionate 2 spray 10/31/20 10:45 11/01/20 08:16 Fluticasone Propionate 0.05% Na Spr 16 Gm Btl (*Bkc) NASAL 2 spray QAM ALAN Administration Glucagon 1 mg 10/31/20 12:27 Glucagon For Inj 1 Mg Vial IM PRN PRN Hypoglycemia Protocol Hydrochlorothiazide 6.25 mg 10/31/20 09:00 11/01/20 08:14 Hydrochlorothiazide 6.25 Mg Tablet PO 6.25 mg QAM ALAN Administration Hydromorphone HCl 0.5 mg 10/31
[2020-11-01 12:56] LABS: Glucose Point of Care 90 (65-105)
[2020-11-01 14:00] VITALS: BP 148/67; PULSE 62; RESP 16; TEMP 36.8; O2SAT 100
[2020-11-01 18:02] LABS: Glucose Point of Care 111 (65-105)
[2020-11-01 22:00] VITALS: BP 168/78; PULSE 68; RESP 18; TEMP 37.1; O2SAT 99
[2020-11-02 02:02] LABS: Glucose Point of Care 155 (65-105)
[2020-11-02 05:49] VITALS: BP 157/69; PULSE 62; RESP 18; TEMP 35.9; O2SAT 99
[2020-11-02 06:51] LABS: Hematocrit 32.8 % (42.0-52.0); Hemoglobin 10.9 g/dL (14.0-18.0); Mean Corpuscular HGB Conc 33.2 g/dl (32-36); Mean Corpuscular Hemoglobin 28.8 pg (26-34); Mean Corpuscular Volume 86.8 fl (80-100); Mean Platelet Volume 10.3 fl (7.4-10.4); Platelet Count Result 214 k/mm3 (150-375); Red Blood Count 3.78 M/mm3 (4.6-6.20); Red Cell Distribution Width 13.5 % (11.5-14.5); White Blood Count 8.9 K/mm3 (4.5-10.0)
[2020-11-02 08:03] LABS: Glucose Point of Care 127 (65-105)
[2020-11-02 09:05] LABS: Anion Gap 5 mmol/L (8-16); Blood Urea Nitrogen 11 mg/dL (9-20); Calcium 8.9 mg/dL (8.4-10.2); Carbon Dioxide 32 mmol/L (22-30); Chloride 100 mmol/L (98-107); Estimated CRCL calculation 77 ml/min; Estimated Glomerular Filt Rate > 60; Glucose 141 mg/dL (75-110); Potassium 4.1 mmol/L (3.4-5.0); Sodium 137 mmol/L (137-145)
[2020-11-02] MEDS: ASPIRIN 81 MG CHEWABLE TABLET PO (09:31)
[2020-11-02 09:32] VITALS: BP 148/69; PULSE 65; RESP 16; O2SAT 98
[2020-11-02] MEDS: bisoproloL fumarate 5 MG TABLET PO (09:32)
[2020-11-02] MEDS: FLUTICASONE PROPIONATE 0.05% NA SPR 16 GM BTL (*BKC) 2 SPRAY NASAL (09:33)
[2020-11-02] MEDS: ATORVASTATIN 40 MG TABLET PO (09:33)
[2020-11-02] MEDS: metFORMIN HCL 500 MG TABLET 1000 MG PO (09:33)
[2020-11-02] MEDS: hydroCHLOROthiazide 6.25 MG TABLET PO (09:33)
[2020-11-02] MEDS: ENOXAPARIN 30 MG/0.3 ML SYRINGE SUB-Q (09:33)
--- NOTE | 2020-11-02 09:53 | PM.DS ---
DS: Admitting Diagnosis Admitting Diagnosis Admitting Diagnosis: Mid rectal cancer-T2 lesion by preoperative staging Essential hypertension Wgs-thskspx-zcxeoidde diabetes Hyperlipidemia DS: Discharge Diagnosis Discharge Diagnosis (1) Rectal cancer: Code(s): C20 - Malignant neoplasm of rectum Status: Chronic Assessment and Plan: Patient underwent hand access laparoscopic low anterior resection with mobilization of the splenic flexure and low pelvic stapled anastomosis on 10/30/2020; protective loop ileostomy created as well. (2) Diabetes type 2, controlled: Qualifiers: Diabetes mellitus senior care insulin use: without local intermodal truck driver use Diabetes mellitus complication status: without complication Qualified Code(s): E11.9 - Type 2 diabetes mellitus without complications Code(s): E11.9 - Type 2 diabetes mellitus without complications Status: Chronic (3) Hypertension: Qualifiers: Hypertension type: essential hypertension Qualified Code(s): I10 - Essential (primary) hypertension Code(s): I10 - Essential (primary) hypertension Status: Chronic DS: Summary Hospital Course Hospital Course: After evaluation and discussion in the office, the patient was prepared for surgery and taken to the operating room on 10/30/[address] Banks. He underwent hand access laparoscopic low anterior resection with stapled low pelvic anastomosis. Splenic flexure mobilization was performed as well. Air leak test was questionable for a small leak. Patient had diverting loop ileostomy created. Following surgery, the patient did very well. He was started on clear liquids after surgery and this was advanced to full liquids on postop day 1. The enterostomal therapy nurses saw him for Education on stoma care. Man catheter was removed on postop day 1. Home health was arranged for assistance in stoma management after discharge. Stoma output began very quickly after surgery. He was advanced to a diabetic regular diet on postop day 2. 11/01/2020. His diabetes and blood pressure were monitored and were appropriate throughout his admission. Patient was not requiring any analgesics and was very comfortable by 11/02/2020. He was ambulatory and comfortable with stoma care. He was discharged on 11/02/2020 in good condition. Pathology showed this to be a T2 N0 M0 rectal cancer. Tumor invaded muscularis propria. Eighteen lymph nodes were evaluated and were all negative. This is a stage I rectal cancer. Patient was informed of this. He was doing well and discharged on postop day number 3, 11/02/2020. Status at Discharge Functional status at discharge: independent ambulation Overall status at discharge: patient is progressing back to baseline Time Spent with Patient Time attestation: Total time spent providing and/or coordinating discharge services: Time spent: Less than 30 minutes Exam Const: General: comfortable and no acute distress; No confusion Orientation/consciousness: patient oriented x3 and No confusion Resp: Effort & Inspection: normal respiratory effort Auscultation: clear to auscultation bilaterally Cardio: Rate: regular rate Rhythm: regular rhythm GI: Inspection: non-distended, incision (Dry and intact, healing well) and other (Loop ileostomy pink healthy with good output) GI Palp: Yes Soft to palpation, Yes Tenderness to palpation present (GI) (Minimal tenderness), No Guarding due to palpation present (GI) and No Rebound tenderness present Auscultation: normal bowel sounds Neuro: General: patient oriented x3, no focal motor deficits and No confusion Extrem: General: no calf tenderness and no edema Psych: Affect: normal affect Insight: Good insight present (Psych) Judgement: Good judgement present (Psych) DS: Data Data Completed and Pending Completed studies during hospitalization: Pending at discharge 10/30/20 11:39 Surgical [PTH] Routine Labs on day of discha
== END 2020-11-02 11:15 | disposition home health service (06) | DRG 331 ==
LOC: ANH3MEDSUR 15:31
PROVIDERS: Nurse Practitioner Family; Admitting Provider Surgery; PCP Physician Assistant; Visit Provider Surgery
PROC: 0D1E4Z4 Bypass Large Intestine to Cutaneous, Percutaneous Endoscopic Approach (ICD-10-PCS; principal; 2020-10-30 09:00)
DX: C20 Malignant neoplasm of rectum (principal); E11.9 Type 2 diabetes mellitus without complications; I10 Essential (primary) hypertension; E78.5 Hyperlipidemia, unspecified; Z87.891 Personal history of nicotine dependence
CPT/HCPCS: 36415; 80048; 80053; 82948; 85025; 85027; 88305; 88309; A9270; C1729; C9290; J0690; J1650; J1885; J2250; J2405; J2704; J2710; J3010; J7030; J7120

== ENCOUNTER 2020-11-18 08:32 | Outpatient (CLI) | payer BC, SELFPAY ==
--- NOTE | ~2020-11-18 | XR_ITS ---
EXAMINATION: XR enema water soluble EXAM DATE: 11/18/2020 09:26 INDICATION: C20 - Malignant neoplasm of rectum . Rectosigmoid resection. TECHNIQUE: Water-soluble dilute Omnipaque 350/water solution enema performed under fluoroscopic toribio nce. Pulsed dose reduction fluoroscopy was used with fluoroscopic time of 0.2 minutes. A total of 32 obtained for the exam. The DAP for this procedure was 13 Gycm2. Correlation is made to CT 09/24/2020. FINDINGS: On the edger liner image suture material identified at the rectosigmoid region. There is no anast omosis leak. Moderate amount of colonic diverticulosis. No focal strictures. Contrast refluxed into t he ileum, and eventually started filling an ostomy bag. IMPRESSION: Scattered moderate colonic diverticulosis. Intact rectosigmoid anastomosis. Reviewed, dictated and finalized at location A. IMPRESSION: Scattered moderate colonic diverticulosis. Intact rectosigmoid david stomosis.
== END 2020-11-18 08:33 | disposition home or self-care (01) ==
PROVIDERS: PCP Physician Assistant; Visit Provider Surgery
DX: C20 Malignant neoplasm of rectum (principal); Z93.2 Ileostomy status; K57.90 Diverticulosis of intestine, part unspecified, without perforation or abscess without bleeding
CPT/HCPCS: 74270

== ENCOUNTER 2020-11-22 11:53 | Outpatient (CLI) | payer BC, SELFPAY | END 2020-11-22 11:54 | disposition home or self-care (01) | LOC: ANHSURGERY 11:55 | PROVIDERS: PCP Physician Assistant; Visit Provider Surgery | DX: Z01.818 Encounter for other preprocedural examination (principal); C19 Malignant neoplasm of rectosigmoid junction | CPT/HCPCS: 36415; 86850; 86900; 86901 ==

== ENCOUNTER → 2020-11-23 05:17 | Outpatient (CLI) | payer BC, SELFPAY ==
[2020-11-23 19:33] LABS: SARS-CoV-2 RNA PCR Negative
== END ==
PROVIDERS: PCP Physician Assistant; Visit Provider Surgery
DX: Z01.812 Encounter for preprocedural laboratory examination (principal); Z20.822 Contact with and (suspected) exposure to COVID-19
CPT/HCPCS: C9803; U0003; U0005

== ENCOUNTER 2020-11-27 14:49 | Observation (INO) | payer BC, SELFPAY ==
[2020-11-22 12:22] VITALS: BP 110/48; PULSE 61; RESP 16; TEMP 36.4; O2SAT 98; BMI 26.9
[2020-11-26] VITALS (15 sets, daily range): BP systolic 122–146; BP diastolic 48–74; PULSE 52–78; RESP 13–20; TEMP 35.9–36.6; O2SAT 97–100; BMI 26.3
[2020-11-26] MEDS: ACETAMINOPHEN 500 MG TABLET 1000 MG PO (10:57)
[2020-11-26] MEDS: LACTATED RINGERS 1,000 ML 80 ML IV CONT (10:58)
--- NOTE | 2020-11-26 11:01 | WPDANESEPPF ---
Anes - Initial Pre Proc Eval Procedure: Operation Date: 11/26/20 12:00 Proposed Procedures p Takedown of Ileostomy - Pawel Banks DO Date/Time: 11/26/20 11:01 Surgeon: Pawel Banks DO Pre Op Diagnosis: primary colorectal adenocarcinoma Patient Data Age: 70 Gender: M Height: 5 ft 11 in Weight: 87.4 kg Last Vital Signs Temp 36.4 C 11/22/20 12:22 Pulse 61 11/22/20 12:22 Resp 16 11/22/20 12:22 BP 110/48 L 11/22/20 12:22 Pulse Ox 98 11/22/20 12:22 Allergies Allergy/AdvReac Type Severity Reaction Status Date / Time Penicillins Allergy Unknown RASH/Skin Verified 11/22/20 12:15 Reaction procaine Allergy Unknown Rash/TISSUE Verified 11/22/20 12:15 IRRITATION Sulfa (Sulfonamide Allergy Unknown Skin Verified 11/22/20 12:15 Antibiotics) Reaction/RASH erythromycin base AdvReac Unknown Nausea Verified 11/22/20 12:15 Home Medications Medication Instructions Recorded Confirmed Type Januvia 100 mg PO QAM 09/09/20 11/22/20 History aspirin 81 mg PO DAILY 09/09/20 11/22/20 History atorvastatin 40 mg PO DAILY 09/09/20 11/22/20 History bisoprolol-hydrochlorothiazide 1 tablet PO QAM 09/09/20 11/22/20 History metformin 1,000 mg PO BID 09/09/20 11/22/20 History quinapril 20 mg PO BID 09/09/20 11/22/20 History Centrum Silver Ultra Men's 1 tablet PO DAILY 10/22/20 11/22/20 History Fish Oil 1 cap PO DAILY 10/22/20 11/22/20 History Vitamin D3 Complete 1 tablet PO DAILY 10/22/20 11/22/20 History Patient hx anesthesia problems: none Family hx anesthesia problems: none PMFSH Past Medical History Medical History Colon cancer screening Colon carcinoma Diabetes type 2, controlled Hyperlipidemia Hypertension Surgical History Surgical History History of appendectomy History of colon resection 10/30/20 . Hand assisted laparoscopic low anterior resection with low pelvic anastomosis, with loop ileostomy, Laparoscopic mobilization of splenic flexure History of colonoscopy History of eye surgery Family History Family History Father Cerebrovascular accident Dementia Diverticulitis Mother Diabetes mellitus Heart disease Dementia Sibling Cancer Social History Social History Smoking status: Former smoker Tobacco type: cigars Second hand tobacco smoke exposure: No Smoking end date: 02/20/82 Additional smoking assessment comments: SMOKED CIGARS 1/MONTH PRIOR TO 1981 Alcohol intake: former Alcohol use details: RARELY DRANK IN PAST Substance use: never Substance use type: does not use Living arrangements: alone 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 Questions were solicited and answers provided to the satisfaction of the patient/family/POA.
[2020-11-26] MEDS: KETOROLAC 15 MG/ML VIAL (*BKC) IV PUSH (11:04)
[2020-11-26 11:10] LABS: Glucose Point of Care 108 (65-105)
[2020-11-26] MEDS: ALVIMOPAN 12 MG CAPSULE PO (11:29)
--- NOTE | 2020-11-26 11:42 | WPDHPUPDATE1 ---
History and Physical Update Update Date/Time: 11/26/20 11:42 History and Physical has been reviewed, including an updated exam of the patient. There are NO changes in the patient's condition. I reviewed patient's contrast enema and discussed results with him. He is ready to proceed with ileostomy takedown. Risks, benefits, and alternatives have been discussed and questions answered. Patient agrees to proceed with procedure.
[2020-11-26] MEDS: ceFAZolin 2 GM/D5W 50 ML 2 GM/50 ML BAG IVPB (11:59)
[2020-11-26] MEDS: metroNIDAZOLE 500 MG/ISO 100ML 500 MG/100 ML BAG 100 MG IVPB (12:25)
[2020-11-26] MEDS: BUPIVACAINE/EPINEPHRINE 0.5% 30 ML VIAL INFILTRATE (12:38)
[2020-11-26] MEDS: LACTATED RINGERS 1,000 ML 30 ML IV CONT ×2 (13:39)
[2020-11-26 13:49] LABS: Glucose Point of Care 140 (65-105)
--- NOTE | 2020-11-26 13:54 | PM.PROC ---
Procedure Note - Detailed Date of procedure: 11/26/20 Pre-op diagnosis: Rectal adenocarcinoma Post-op diagnosis: same Procedure performed: Takedown of ileostomy Description of procedure: Procedure as well as risks benefits and alternatives were discussed with the patient. Written consent was obtained and placed in chart prior to procedure. Patient was brought back to surgical suite. He was placed supine on operating table. Time-out was done to confirm patient and procedure. He was then intubated by the Anesthesia Department. His abdomen was prepped and draped in sterile fashion using chlorhexidine prep and Betadine spray was used around the ileostomy. 0.5% bupivacaine with epinephrine was infiltrated locally around the skin around the ileostomy. A 6 cm elliptical incision was then made vertically around the ileostomy. Electrocautery was used for hemostasis and for careful dissection through the subcutaneous tissue. The subcutaneous tissue was dissected until the loop ileostomy was identified near the fascia. This was carefully freed up using a curved hemostat and electrocautery. Care was taken not to injure the bowel while the surrounding subcu attachments were freed up. I then freed the ileum from the surrounding fascia and this was completely freed up circumferentially to where the bowel was able to be brought up through the ileostomy opening. The 2 ends of the ileum were carefully inspected and appeared to be healthy and viable. A SILVIA 75 mm blue load stapler was then advanced through each limb of the ileostomy and the bowel was clamped together in a [id number] fashion along the anti mesenteric border. The stapler was fired to create our anastomosis. I then freed up some of the mesentery and subcu attachments just below the skin edge so that another stapler could be clamped across the anastomosis to close the enterotomy. The stapler was then clamped just below the level of the skin and the stapler was fired. This closed our anastomosis and removed the excess end of the ileum that was used to create the ileostomy. The anastomosis was carefully palpated and inspected and appeared healthy and viable. The apex of the staple line was then reinforced using a 3 0 silk seromuscular suture. Several imbricating sutures were also placed along the anti mesenteric border of the anastomosis. The anastomosis was inspected 1 final time and appeared healthy and viable. This was then released back down through the ileostomy opening in back into the abdominal cavity. I carefully swept along the undersurface of the peritoneum and no other significant abnormalities were noted. The posterior rectus sheath was then reapproximated using 0 Vicryl [id number] sutures. These were placed in a vertical fashion to reapproximate the fascia and rectus muscle. The subcutaneous space was then irrigated with sterile saline and no further bleeding or other abnormalities were noted. The anterior rectus sheath was then reapproximated using 0 PDS [id number] interrupted sutures. These were also placed in a vertical fashion. 0.5% bupivacaine with epinephrine was infiltrated locally around the fascia and subcu space. The skin edges were then reapproximated with widely spaced liya. 1 in iodoform gauze was then packed in between each of the liya. 4 x 4 gauze and Medipore tape were then applied. The patient was then awakened from anesthesia and transferred to recovery. Anesthesia: GETA and local (0.5 % bupivicaine with epi) Surgeon: Pawel Banks DO Estimated blood loss (mL): 20 Packing: Yes (1 iodoform gauze) Pathology: none sent Complications: No immediate complications Condition: stable Disposition: floor Findings: This is a 70-year-old man who presented with a prior finding rectal cancer. He underwent low anterior resection with low pelvic anastomosis with loop ileostomy. After 2 weeks a contrast enema was obtained which showed no evidence of anastom
[2020-11-26] MEDS: fentaNYL CITRATE INJ (*CRX) 100 MCG/2 ML VIAL 25 MCG IV PUSH ×2 (14:06→14:16)
--- NOTE | 2020-11-26 15:04 | ADMGEN ---
This patient, Everette Rosario, was admitted to Medical Room 247-. Patient/family oriented to hospital policies and general routines including ID bracelet, bed and alarms, visiting hours, pain management, procedures, bathroom and other care routines, personal items, smoking policy, room service/diet, and visiting hours. Information on how to activate the Rapid Response Team has been discussed. Patient/Family are encouraged to report perceived risks to care and to ask questions if they do not understand what they are told or what they should do.
[2020-11-26] MEDS: ONDANSETRON INJ 4 MG/2 ML VIAL IV PUSH (15:11)
[2020-11-26] MEDS: LACTATED RINGERS 1,000 ML 100 ML IV CONT (15:12)
[2020-11-26] MEDS: metFORMIN HCL 500 MG TABLET 1000 MG PO (17:25)
[2020-11-26 17:43] LABS: Glucose Point of Care 136 (65-105)
[2020-11-26] MEDS: HYDROcodone/acetaminophen (*CRX) 5-325 MG TABLET 1 TAB PO (18:41)
[2020-11-26] MEDS: lisinopriL 20 MG TABLET PO (21:10)
[2020-11-26 22:57] LABS: Glucose Point of Care 141 (65-105)
[2020-11-27] VITALS (9 sets, daily range): BP systolic 109–125; BP diastolic 47–64; PULSE 59–72; RESP 18–20; TEMP 35.7–36.9; O2SAT 98–100; BMI 26.3
[2020-11-27] MEDS: HYDROcodone/acetaminophen (*CRX) 5-325 MG TABLET 1 TAB PO ×2 (04:15→09:29)
[2020-11-27 05:58] LABS: Hematocrit 29.8 % (42.0-52.0); Hemoglobin 10.3 g/dL (14.0-18.0); Mean Corpuscular HGB Conc 34.6 g/dl (32-36); Mean Corpuscular Hemoglobin 29.3 pg (26-34); Mean Corpuscular Volume 84.7 fl (80-100); Mean Platelet Volume 10.3 fl (7.4-10.4); Platelet Count Result 181 k/mm3 (150-375); Red Blood Count 3.52 M/mm3 (4.6-6.20); Red Cell Distribution Width 13.3 % (11.5-14.5); White Blood Count 12.8 K/mm3 (4.5-10.0)
[2020-11-27 06:06] LABS: Anion Gap 7 mmol/L (8-16); Blood Urea Nitrogen 38 mg/dL (9-20); Calcium 8.6 mg/dL (8.4-10.2); Carbon Dioxide 24 mmol/L (22-30); Chloride 104 mmol/L (98-107); Estimated CRCL calculation 49 ml/min; Estimated Glomerular Filt Rate 54; Glucose 148 mg/dL (75-110); Potassium 4.7 mmol/L (3.4-5.0); Sodium 135 mmol/L (137-145)
--- NOTE | 2020-11-27 07:57 | WPDANESPN ---
Anes - Prog Note Post-Op Date/Time: 11/27/20 07:57 Cardiovascular status: normal Respiratory status: normal Airway patency: baseline Mental status: baseline Post-Op hydration status: normal Vital Signs: Last Vital Signs Temp 36.2 C L 11/27/20 00:41 Pulse 66 11/27/20 00:41 Resp 20 11/27/20 00:41 BP 119/47 L 11/27/20 00:41 Pulse Ox 98 11/27/20 00:41 Pain Score (VAS): 0 I/O: Intake & Output 11/26/20 11/26/20 11/27/20 15:59 23:59 07:59 Intake Total 777 256 7786 Output Total 150 Balance 400 470 850 Laboratory Tests 11/27/20 05:08 11/27/20 05:08 11/26/20 11/26/20 11/26/20 11:08 13:43 17:10 WBC RBC Hgb Hct MCV MCH MCHC RDW Plt Count MPV Sodium Potassium Chloride Carbon Dioxide Anion Gap BUN Creatinine Estim Creat Clear Calc Estimated GFR Glucose POC Capillary Glucose 108 140 H 136 H Calcium 11/26/20 11/27/20 11/27/20 22:54 05:08 05:08 WBC 12.8 H RBC 3.52 L Hgb 10.3 L Hct 29.8 L MCV 84.7 MCH 29.3 MCHC 34.6 RDW 13.3 Plt Count 181 MPV 10.3 Sodium 135 L Potassium 4.7 Chloride 104 Carbon Dioxide 24 Anion Gap 7 L BUN 38 H D Creatinine 1.30 Estim Creat Clear Calc 49 Estimated GFR 54 L Glucose 148 H POC Capillary Glucose 141 H Calcium 8.6 Post-procedural complaints: none Patient Feedback: Patient satisfied with anesthetic care.
[2020-11-27 08:16] LABS: Glucose Point of Care 125 (65-105)
[2020-11-27] MEDS: hydroCHLOROthiazide 6.25 MG TABLET PO (09:18)
[2020-11-27] MEDS: ENOXAPARIN 40 MG/0.4 ML SYRINGE SUB-Q (09:18)
[2020-11-27] MEDS: ASPIRIN 81 MG ENTERIC TABLET PO (09:18)
[2020-11-27] MEDS: ATORVASTATIN 40 MG TABLET PO (09:18)
[2020-11-27] MEDS: lisinopriL 20 MG TABLET PO ×2 (09:19→20:17)
[2020-11-27] MEDS: bisoproloL fumarate 5 MG TABLET PO (09:19)
[2020-11-27] MEDS: metFORMIN HCL 500 MG TABLET 1000 MG PO ×2 (09:19→17:51)
[2020-11-27 12:19] LABS: Glucose Point of Care 126 (65-105)
--- NOTE | 2020-11-27 13:17 | PM.PNGS ---
Progress Note: A&P Assessment and Plan (1) Ileostomy in place: Code(s): Z93.2 - Ileostomy status Status: Acute Assessment and Plan: POD#1 takedown of ileostomy. Doing well today. Pain well controlled. Showing signs of bowel function. Advance to soft diet this evening. Encouraged increased activity/OOB/IS. (2) Rectal cancer: Code(s): C20 - Malignant neoplasm of rectum Status: Chronic (3) Diabetes type 2, controlled: Qualifiers: Diabetes mellitus retirement insulin use: without retirement use Diabetes mellitus complication status: without complication Qualified Code(s): E11.9 - Type 2 diabetes mellitus without complications Code(s): E11.9 - Type 2 diabetes mellitus without complications Status: Chronic Assessment and Plan: Home medications restarted post-op. Blood glucose in low 100's today. (4) Hypertension: Qualifiers: Hypertension type: essential hypertension Qualified Code(s): I10 - Essential (primary) hypertension Code(s): I10 - Essential (primary) hypertension Status: Chronic Assessment and Plan: BP stable. Continue home medications. Additional Plan Discussed plan with Dr. Banks. Subjective Subjective Date/Time Seen: 11/27/20 13:17 Post Op day: 1 (Takedown of ileostomy) Patient reports: tolerating liquids well, voiding w/o difficulty, flatus and afebrile Interval history: Patient seen today with no specific complaints. Reports having some nausea after surgery yesterday, but this has since resolved. Overall, feeling well today. Pain is well controlled. Reports passing lots of gas. Tolerating full liquids. Review of Systems Review of Systems: All systems reviewed & are unremarkable except as noted in HPI and below Constitutional: Constitutional: Reports as per HPI, Reports no additional constitutional complaints, Denies chills and Denies fever(s) Cardiovascular: Cardiovascular: Reports no additional cardiovascular complaints, Denies chest pain, Denies leg edema and Denies dyspnea Respiratory: Respiratory: Reports no additional respiratory complaints, Denies cough and Denies dyspnea Gastrointestinal: Gastrointestinal: Reports as per HPI and Reports no additional gastrointestinal complaints Neurologic: Reports system reviewed and no additional complaints, except as documented and Denies focal weakness Exam Const: General: comfortable, no acute distress, alert and awake Orientation/consciousness: patient oriented x3 Resp: Effort & Inspection: normal respiratory effort Auscultation: clear to auscultation bilaterally Cardio: Rate: regular rate Rhythm: regular rhythm GI: Inspection: incision (RLQ dressing dry and intact with some shadow drainage noted) and scar (previous midline incision well healed) GI Palp: Yes Soft to palpation and Yes Tenderness to palpation present (GI) (incisional) Auscultation: normal bowel sounds Skin: General skin exam: normal color Neuro: General: patient oriented x3, moves all extremities and no focal motor deficits Extrem: General: no clubbing, cyanosis or edema and no calf tenderness Psych: Mental Status: mental status grossly normal Insight: Good insight present (Psych) Judgement: Good judgement present (Psych) Objective Data Vital Signs Vital Signs: Vital Signs - 24 hr 11/26/20 13:39 11/26/20 13:44 11/26/20 13:55 Temperature 97 F L Pulse Rate 78 60 55 L Respiratory Rate 14 14 13 Blood Pressure 137/61 146/68 H 141/60 H Pulse Oximetry 100 100 100 11/26/20 14:00 11/26/20 14:10 11/26/20 14:25 Temperature Pulse Rate 54 L 54 L 52 L Respiratory Rate 16 18 16 Blood Pressure 140/59 L 141/49 H 133/57 L Pulse Oximetry 100 100 100 11/26/20 14:30 11/26/20 14:40 11/26/20 14:50 Temperature Pulse Rate 53 L 52 L 53 L Respiratory Rate 16 14 14 Blood Pressure 123/57 L 122/54 L 135/63 Pulse Oximetry 100 100 100 11/26/20 15:10 11/26/20 15:25 11/26/20 15
[2020-11-27 17:43] LABS: Glucose Point of Care 91 (65-105)
[2020-11-27] MEDS: ACETAMINOPHEN 325 MG TABLET 650 MG PO (21:47)
[2020-11-27 23:58] LABS: Glucose Point of Care 122 (65-105)
[2020-11-28 02:00] VITALS: BP 126/60; PULSE 68; RESP 21; TEMP 36.4; O2SAT 100
[2020-11-28 06:00] VITALS: BP 117/53; PULSE 64; RESP 20; TEMP 36.4; O2SAT 99
[2020-11-28 07:45] LABS: Glucose Point of Care 102 (65-105)
[2020-11-28] MEDS: metFORMIN HCL 500 MG TABLET 1000 MG PO (08:14)
[2020-11-28] MEDS: ASPIRIN 81 MG ENTERIC TABLET PO (08:14)
[2020-11-28] MEDS: ATORVASTATIN 40 MG TABLET PO (08:14)
[2020-11-28] MEDS: ENOXAPARIN 40 MG/0.4 ML SYRINGE SUB-Q (08:14)
[2020-11-28 08:16] VITALS: PULSE 76
[2020-11-28] MEDS: lisinopriL 20 MG TABLET PO (08:16)
[2020-11-28] MEDS: hydroCHLOROthiazide 6.25 MG TABLET PO (08:16)
[2020-11-28] MEDS: bisoproloL fumarate 5 MG TABLET PO (08:16)
[2020-11-28 10:00] VITALS: BP 111/50; PULSE 60; RESP 16; TEMP 36.3; O2SAT 100
--- NOTE | 2020-11-28 11:51 | PM.DS ---
DS: Admitting Diagnosis Admitting Diagnosis Admitting Diagnosis: Rectal cancer, ileostomy status DS: Discharge Diagnosis Discharge Diagnosis (1) Ileostomy in place: Code(s): Z93.2 - Ileostomy status Status: Acute (2) Rectal cancer: Code(s): C20 - Malignant neoplasm of rectum Status: Chronic (3) BMI 27.0-27.9,adult: Code(s): Z68.27 - Body mass index [BMI] 27.0-27.9, adult Status: Acute (4) Diabetes type 2, controlled: Qualifiers: Diabetes mellitus manager intermediate insulin use: without assisted use Diabetes mellitus complication status: without complication Qualified Code(s): E11.9 - Type 2 diabetes mellitus without complications Code(s): E11.9 - Type 2 diabetes mellitus without complications Status: Chronic (5) Hypertension: Qualifiers: Hypertension type: essential hypertension Qualified Code(s): I10 - Essential (primary) hypertension Code(s): I10 - Essential (primary) hypertension Status: Chronic DS: Summary Hospital Course Reason for hospitalization: takedown of loop ileostomy Hospital Course: this is a 70-year-old man who is status post hand assisted laparoscopic low anterior resection with low pelvic anastomosis and loop ileostomy on 10/30/2020. He now presents for takedown of the loop ileostomy. Underwent loop ileostomy takedown 11/26/2020. Surgery was uncomplicated and he was admitted to the surgical floor postoperatively. The ostomy wound was packed with 1 in iodoform gauze and he was started on a full liquid diet initially. On postop day 1 he was doing well and tolerating a full liquid diet. He was passing flatus but was not having any bowel movements yet. He did begin having some bowel movements that evening and on postop day 1 he was advanced to a regular diet. On postop day 2 he was tolerating this regular diet and his wound packing was going well without any signs of infection. He was discharged postop day 2 with instructions to change packing daily. Status at Discharge Functional status at discharge: independent ambulation Overall status at discharge: patient is progressing back to baseline Time Spent with Patient Time attestation: Total time spent providing and/or coordinating discharge services: Time spent: Less than 30 minutes Exam Const: General: comfortable, no acute distress, alert and awake Orientation/consciousness: patient oriented x3 Resp: Effort & Inspection: normal respiratory effort Auscultation: clear to auscultation bilaterally Cardio: Rate: regular rate Rhythm: regular rhythm GI: Inspection: incision ( Packing changed with 1 in iodoform gauze, no surrounding redness), scar (previous midline incision well healed) and other ( minimal serosanguineous drainage at incision) GI Palp: Yes Soft to palpation and Yes Tenderness to palpation present (GI) (incisional) Auscultation: normal bowel sounds Skin: General skin exam: normal color Neuro: General: patient oriented x3, moves all extremities and no focal motor deficits Extrem: General: no clubbing, cyanosis or edema and no calf tenderness Psych: Mental Status: mental status grossly normal Insight: Good insight present (Psych) Judgement: Good judgement present (Psych) DS: Data Data Completed and Pending Labs on day of discharge: Labs from last 24 hours 11/28/20 11/27/20 11/27/20 07:10 20:16 17:28 POC Capillary Glucose 102 122 H 91 11/27/20 12:16 POC Capillary Glucose 126 H Discharge Plan Discharge Attending physician on discharge: Pawel Banks Discharging Clinician: Pawel Banks Patient Disposition: Home, Self-Care Activity: other - see discharge instructions Diet: regular and diabetic Wound Care Instructions: other - see discharge instructions Discharge Instructions: change packing daily with 1 in iodoform gauze May shower, no bathing or soaking for 2 weeks No lifting greater than 10 l
[2020-11-28 11:55] LABS: Glucose Point of Care 93 (65-105)
== END 2020-11-28 13:00 | disposition home or self-care (01) ==
LOC: ANHSURGERY 15:07 → ANH2MED 15:07
PROVIDERS: Admitting Provider Surgery; PCP Physician Assistant; Visit Provider Surgery
PROC: (CPT 44620; principal; 2020-11-26 12:00)
DX: Z43.3 Encounter for attention to colostomy (principal); Z85.048 Personal history of other malignant neoplasm of rectum, rectosigmoid junction, and anus; Z90.49 Acquired absence of other specified parts of digestive tract; Z98.0 Intestinal bypass and anastomosis status; E11.9 Type 2 diabetes mellitus without complications; I10 Essential (primary) hypertension; E78.5 Hyperlipidemia, unspecified; Z79.84 Long term (current) use of oral hypoglycemic drugs; Z79.82 Long term (current) use of aspirin; Z87.891 Personal history of nicotine dependence
CPT/HCPCS: 44620; 36415; 80048; 82948; 85027; A9270; G0378; J0330; J0690; J1100; J1650; J1885; J2405; J2704; J3010; J7120

== ENCOUNTER 2021-02-05 07:29 | Outpatient (CLI) | payer BC, SELFPAY ==
--- NOTE | ~2021-02-05 | CT_ITS ---
EXAMINATION: CT abdomen pelvis w con EXAM DATE: 02/05/2021 08:01 INDICATION: Rectal cancer follow-up. Skin cancer. TECHNIQUE: Spiral CT of the abdomen and pelvis was performed following intravenous injection of 100 m L Omnipaque 350. Axial, coronal and sagittal images of the abdomen and pelvis were reviewed. The do se-length product (DLP) for this examination was 663.41 mGy-cm. The exposure was tailored according to patient size (auto mA exposure control), and iterative reconstruction (ASIR) was used as additiona l dose reduction technique. Comparison is made to prior examination from 09/24/2020. FINDINGS: The liver, spleen, adrenal glands and pancreas are unremarkable. Gallbladder is unremarkab le. No biliary obstruction. Portal and splenic veins are patent. Kidneys enhance symmetrically. T here is no hydronephrosis. There is a 1.2 cm exophytic left renal cyst. Process is within normal siz e limits. mild bladder wall trabeculation. There is a right-sided pelvic lymph node just deep to th e inguinal canal measuring 9 mm considered upper limits of normal in size, but unchanged and could be reactive. There is moderate scattered arteriosclerotic disease. There is mildly aneurysmal left com mon iliac artery before its bifurcation up to 1.9 cm. The appendix is not positively visualized. There is no pericecal inflammatory change to suggest appe ndicitis. There is a rectosigmoid anastomosis without wall thickening. Small bowel anastomosis. Some nonspecific presacral fat stranding with mild progression compared to prior study (radiation related change?) There is mild descending and sigmoid colonic diverticulosis. There is no adjacent inflammat ory change to suggest diverticulitis. There is a 2 cm duodenal diverticulum. There is expected amou nt of colonic stool. No free intraperitoneal gas. Heart upper limits of normal in size. The lung bases are unremarkable. There are no osteoblastic or osteolytic lesions identified. IMPRESSION: 1. Attention to right pelvic lymph node on follow-up exam, upper limits of normal in size, but stabl e. 2. Development of some presacral fat stranding. Radiation? 3. Scattered colonic diverticulosis. Reviewed, dictated and finalized at [facility]. IMPRESSION: 1. Attention to right pelvic lymph node on follow-up exam, upper limits of nor mal in size, but stable. 2. Development of some presacral fat stranding. Radiation? 3. Scattered colonic diverticulosis.
[2021-02-05 07:53] LABS: Estimated Glomerular Filt Rate 54
== END 2021-02-05 07:30 | disposition home or self-care (01) ==
PROVIDERS: PCP Physician Assistant; Visit Provider Internal Medicine Hematology & Oncology
DX: C20 Malignant neoplasm of rectum (principal); K57.90 Diverticulosis of intestine, part unspecified, without perforation or abscess without bleeding
CPT/HCPCS: 74177; Q9967

== ENCOUNTER 2021-02-12 09:34 | Outpatient (CLI) | payer BC, SELFPAY ==
[2021-02-12 09:48] LABS: Basophils Percent Auto 0.3 % (0.2-1.2); Eosinophils Absolute Auto 0.1 K/mm3 (0-0.3); Eosinophils Percent Auto 0.8 % (0-4.4); Hematocrit 36.6 % (42.0-52.0); Hemoglobin 11.7 g/dL (14.0-18.0); Immature Granulocyte Absolute 0.63 K/mm3 (0.00-0.031); Immature Granulocyte Percent A 9.7 % (0-0.5); Lymphocytes Absolute Auto 1.56 K/mm3 (0.9-3.2); Lymphocytes Percent Auto 24.1 % (18.3-44.2); Mean Corpuscular Hemoglobin 28.2 pg (26-34); Mean Corpuscular Volume 88.2 fl (80-100); Mean Platelet Volume 9.6 fl (7.4-10.4); Monocytes Absolute Auto 0.6 K/mm3 (0.1-0.6); Monocytes Percent Auto 9.3 % (2.6-8.5); Neutrophils Absolute Auto 3.6 K/mm3 (1.3-6.7); Neutrophils Percent Auto 55.8 % (45.5-73.1); Platelet Count Result 274 k/mm3 (150-375); Red Blood Count 4.15 M/mm3 (4.6-6.20); Red Cell Distribution Width 13.8 % (11.5-14.5); White Blood Count 6.5 K/mm3 (4.5-10.0)
[2021-02-12 09:51] LABS: Blood Urea Nitrogen 28 mg/dL (8-26); Carbon Dioxide 26 mmol/L (22-30); Chloride 102 mmol/L (98-109); Estimated Glomerular Filt Rate 60; Glucose 138 mg/dL (70-105); Potassium 4.1 mmol/L (3.5-4.9); Sodium 141 mmol/L (138-146)
[2021-02-12 10:27] LABS: Alanine Aminotransferase 23 U/L (4-50); Albumin Level 4.3 g/dL (3.5-5.1); Alkaline Phosphatase 60 U/L (38-126); Anion Gap 11 mmol/L (8-16); Aspartate Amino Transferase 26 U/L (17-59); Bilirubin,Total 0.3 mg/dL (0.2-1.3); Blood Urea Nitrogen 27 mg/dL (9-20); Carbon Dioxide 25 mmol/L (22-30); Chloride 104 mmol/L (98-107); Estimated Glomerular Filt Rate > 60; Glucose 133 mg/dL (75-110); Potassium 4.3 mmol/L (3.4-5.0); Sodium 140 mmol/L (137-145)
[2021-02-12 11:35] LABS: Carcinoembryonic Antigen < 0.3 ng/mL (0.0-3.0)
== END 2021-02-12 09:35 | disposition home or self-care (01) ==
LOC: ANHLAB 09:37
PROVIDERS: PCP Physician Assistant; Visit Provider Internal Medicine Hematology & Oncology
DX: C20 Malignant neoplasm of rectum (principal)
CPT/HCPCS: 36415; 80048; 80053; 82378; 85025

== ENCOUNTER 2021-05-14 09:03 | Outpatient (CLI) | payer MEDICARE, SELFPAY ==
[2021-05-14 09:22] LABS: Hematocrit 34.4 % (42.0-52.0); Hemoglobin 11.5 g/dL (14.0-18.0); Mean Corpuscular HGB Conc 33.4 g/dl (32-36); Mean Corpuscular Hemoglobin 28.8 pg (26-34); Platelet Count Result 228 k/mm3 (150-375); Red Cell Distribution Width 14.4 % (11.5-14.5); White Blood Count 5.6 K/mm3 (4.5-10.0)
[2021-05-14 09:30] LABS: Blood Urea Nitrogen 26 mg/dL (8-26); Carbon Dioxide 26 mmol/L (22-30); Chloride 102 mmol/L (98-109); Estimated Glomerular Filt Rate 60; Glucose 135 mg/dL (70-105); Potassium 4.4 mmol/L (3.5-4.9); Sodium 141 mmol/L (138-146)
[2021-05-14 09:31] LABS: Atypical Lymphocytes Present; Band Neutrophils Percent 2 % (0-6); Lymphocytes Absolute Manual 1.12 K/mm3 (1.1-4.5); Metamyelocytes Percent 1 %; Monocytes Absolute Manual 0.33 K/mm3 (0.1-0.90); Monocytes Percent Manual 6 % (3-9); Neutrophils Absolute Manual 4.08 K/mm3 (1.3-6.7); Neutrophils Percent Manual 71 % (46-73); Ovalocytes 1+ (NORMAL); Platelet Estimate Adequate (Adequate); Total Cells Counted 100
[2021-05-14 09:32] LABS: Poikilocytosis 1+ (NORMAL)
[2021-05-14 10:52] LABS: Alanine Aminotransferase 20 U/L (4-50); Albumin Level 4.5 g/dL (3.5-5.1); Alkaline Phosphatase 66 U/L (38-126); Anion Gap 10 mmol/L (8-16); Aspartate Amino Transferase 34 U/L (17-59); Bilirubin,Total 0.5 mg/dL (0.2-1.3); Blood Urea Nitrogen 26 mg/dL (9-20); Calcium 9.5 mg/dL (8.4-10.2); Carbon Dioxide 27 mmol/L (22-30); Chloride 104 mmol/L (98-107); Estimated Glomerular Filt Rate > 60; Glucose 135 mg/dL (65-110); Potassium 4.6 mmol/L (3.4-5.0); Sodium 141 mmol/L (137-145)
[2021-05-14 12:24] LABS: Iron 47 ug/dL (49-181)
[2021-05-14 12:34] LABS: Percent Iron Saturation 14 % (20-50)
[2021-05-14 18:40] LABS: Carcinoembryonic Antigen < 0.3 ng/mL (0.0-3.0)
== END 2021-05-14 09:04 | disposition home or self-care (01) ==
LOC: ANHLAB 09:10
PROVIDERS: PCP Physician Assistant; Visit Provider Internal Medicine Hematology & Oncology
DX: C20 Malignant neoplasm of rectum (principal)
CPT/HCPCS: 36415; 80048; 80053; 82378; 82607; 82728; 83540; 83550; 85025

== ENCOUNTER 2021-08-13 06:33 | Outpatient (CLI) | payer MEDICARE, SELFPAY ==
--- NOTE | ~2021-08-13 | CT_ITS ---
EXAMINATION: CT abdomen pelvis w con DATE: 08/13/2021 07:12 INDICATION: Rectal cancer restaging TECHNIQUE: Computed tomography (CT) of the abdomen and pelvis was performed with 100 cc Omnipaque 350 intravenous contrast. Automated exposure control and iterative reconstruction technique were employe d. Exam dose: 691.08 mGy-cm total exam DLP. COMPARISON: 02/05/2021 CT abdomen pelvis FINDINGS: The lung bases are clear. Normal heart size. No pericardial or pleural effusion. The liver, gallbladder, bile ducts, spleen, pancreas, pancreatic duct, and adrenal glands are unremar kable. 12 mm exophytic left renal cyst. Stable small left renal lower pole probable cyst, unchanged since . The right kidney is unremarkable. No urinary tract calculus or hydroureteronephrosis. There is prostate enlargement and calcification. There is thickening of the wall of the urinary bladd er and some urinary bladder diverticulum formation. Duodenal diverticulum. There is a suture line at the rectosigmoid area. Surgical scar, right lower quadrant abdominal wall. The appendix appears to be absent. Diverticulosis of the left colon; no CT evidence of diverticulitis. No bowel obstruction, bowel wall thickening, pneumatosis or intraperitoneal free air. There is extensive calcification of the abdominal aorta and iliac arteries but no abdominal aortic an eurysm; stable left common iliac artery aneurysm. No intraperitoneal or retroperitoneal or pelvic mas s lesion or lymphadenopathy is noted. No suspicious osteolytic or osteoblastic lesions. Diffuse idiopathic skeletal hyperostosis of the lower thoracic spine. IMPRESSION: Rectosigmoid suture line again noted; no recurrent tumor or metastatic disease is identi fied Diverticulosis of the colon; no CT evidence of diverticulitis Duodenal diverticulum Left renal cysts Prostate enlargement and calcifications, with thickening of the urinary bladder wall diverticulum for mation Reviewed, dictated and finalized at [facility]. Reviewed, dictated and finalized at [facility]. [employer] IMPRESSION: Rectosigmoid suture line again noted; no recurrent tumor or metast atic disease is identified Diverticulosis of the colon; no CT evidence of diverticulitis Duodenal diverticulum Left renal cysts Prostate enlargement and calcifications, with thickening of the urinary bladder wall diverticulum formation
[2021-08-13 07:05] LABS: Estimated Glomerular Filt Rate 60
== END 2021-08-13 06:34 | disposition home or self-care (01) ==
PROVIDERS: PCP Physician Assistant; Visit Provider Internal Medicine Hematology & Oncology
DX: C20 Malignant neoplasm of rectum (principal); K57.10 Diverticulosis of small intestine without perforation or abscess without bleeding; N28.1 Cyst of kidney, acquired; N40.0 Benign prostatic hyperplasia without lower urinary tract symptoms; R93.41 Abnormal radiologic findings on diagnostic imaging of renal pelvis, ureter, or bladder
CPT/HCPCS: 74177; Q9967

== ENCOUNTER 2021-08-20 08:55 | Outpatient (CLI) | payer MEDICARE, SELFPAY ==
[2021-08-20 09:32] LABS: Hematocrit 36.6 % (42.0-52.0); Hemoglobin 11.7 g/dL (14.0-18.0); Mean Corpuscular Volume 90.8 fl (80-100); Mean Platelet Volume 9.6 fl (7.4-10.4); Platelet Count Result 219 k/mm3 (150-375); Red Blood Count 4.03 M/mm3 (4.6-6.20); Red Cell Distribution Width 13.2 % (11.5-14.5); White Blood Count 6.4 K/mm3 (4.5-10.0)
[2021-08-20 10:02] LABS: Band Neutrophils Percent 3 % (0-6); Eosinophils Absolute Manual 0.06 K/mm3 (0.02-0.5); Eosinophils Percent Manual 1 % (0-4); Lymphocytes Absolute Manual 1.28 K/mm3 (1.1-4.5); Monocytes Absolute Manual 0.44 K/mm3 (0.1-0.90); Monocytes Percent Manual 7 % (3-9); Neutrophils Percent Manual 69 % (46-73); Platelet Estimate Adequate (Adequate); Total Cells Counted 100
[2021-08-20 11:31] LABS: Add Urine Microscopic? NO; Appearance Urine Clear (Clear); Bilirubin Urine Negative (Negative); Blood Urine Negative (Negative); Color Urine Straw (Yellow); Glucose Urine UA Negative (Negative); Ketones Urine Negative (Negative); Leukocyte Esterase Ur Negative LEU/UL (NEGATIVE); Nitrate Urine Negative (Negative); Protein Urine Negative (Negative); Specific Grav Ur 1.011 (1.001-1.035); Urobilinogen Urine Negative mg/dL (<2.0)
[2021-08-20 11:32] LABS: Iron 72 ug/dL (49-181)
[2021-08-20 11:33] LABS: Cholesterol 153 mg/dL (0-200); HDL Direct 28 mg/dL; Triglycerides 131 mg/dL (<150)
[2021-08-20 11:34] LABS: Hemoglobin A1C 6.2 % (<5.7)
[2021-08-20 11:39] LABS: Alanine Aminotransferase 28 U/L (4-50); Albumin Level 4.4 g/dL (3.5-5.1); Alkaline Phosphatase 62 U/L (38-126); Anion Gap 8 mmol/L (8-16); Aspartate Amino Transferase 32 U/L (17-59); Bilirubin,Total 0.5 mg/dL (0.2-1.3); Blood Urea Nitrogen 22 mg/dL (9-20); Calcium 9.6 mg/dL (8.4-10.2); Carbon Dioxide 30 mmol/L (22-30); Chloride 102 mmol/L (98-107); Estimated Glomerular Filt Rate > 60; Glucose 123 mg/dL (65-110); Potassium 4.2 mmol/L (3.4-5.0); Sodium 140 mmol/L (137-145)
[2021-08-20 11:44] LABS: LDL Cholesterol Direct 90 mg/dL
[2021-08-20 11:45] LABS: Percent Iron Saturation 22 % (20-50)
[2021-08-20 13:37] LABS: Carcinoembryonic Antigen < 0.3 ng/mL (0.0-3.0)
== END 2021-08-20 08:56 | disposition home or self-care (01) ==
PROVIDERS: PCP Physician Assistant; Visit Provider Internal Medicine Hematology & Oncology
DX: C20 Malignant neoplasm of rectum (principal); N39.0 Urinary tract infection, site not specified; E11.9 Type 2 diabetes mellitus without complications; E78.5 Hyperlipidemia, unspecified; D64.9 Anemia, unspecified
CPT/HCPCS: 36415; 80053; 80061; 81003; 82248; 82378; 82607; 82728; 83036; 83540; 83550; 85025; 87086

== ENCOUNTER 2021-11-19 00:25 | Day surgery (SDC) | payer MEDICARE, SELFPAY ==
[2021-11-06 14:50] VITALS: BMI 25.8
[2021-11-19 06:45] VITALS: BP 171/69; PULSE 56; RESP 18; TEMP 35.6; O2SAT 99; BMI 25.9
[2021-11-19] MEDS: LACTATED RINGERS 1,000 ML 150 ML IV CONT (07:07)
[2021-11-19 07:09] LABS: Glucose Point of Care 147 mg/dl (65-105)
--- NOTE | 2021-11-19 07:31 | WPDANESEPPF ---
Anes - Initial Pre Proc Eval Procedure: Operation Date: 11/19/21 08:00 Proposed Procedures p Screening Colonoscopy - Nemesio Moore MD Date/Time: 11/19/21 07:31 Surgeon: Nemesio Moore MD Pre Op Diagnosis: hx of rectal ca Patient Data Age: 71 Gender: M Height: 1.8 m Weight: 84.4 kg Last Vital Signs Temp 35.6 C L 11/19/21 06:45 Pulse 56 L 11/19/21 06:45 Resp 18 11/19/21 06:45 BP 171/69 H 11/19/21 06:45 Pulse Ox 99 11/19/21 06:45 Allergies Allergy/AdvReac Type Severity Reaction Status Date / Time Penicillins Allergy Unknown RASH/Skin Verified 11/19/21 06:54 Reaction procaine Allergy Unknown Rash/TISSUE Verified 11/19/21 06:54 IRRITATION Sulfa (Sulfonamide Allergy Unknown Skin Verified 11/19/21 06:54 Antibiotics) Reaction/RASH erythromycin base AdvReac Unknown Nausea Verified 11/19/21 06:54 Home Medications Medication Instructions Recorded Confirmed Type Januvia 100 mg PO QAM 09/09/20 11/19/21 History aspirin 81 mg PO DAILY 09/09/20 11/19/21 History atorvastatin 40 mg PO DAILY 09/09/20 11/19/21 History bisoprolol-hydrochlorothiazide 1 tablet PO QAM 09/09/20 11/19/21 History metformin 1,000 mg PO BID 09/09/20 11/19/21 History quinapril 20 mg PO BID 09/09/20 11/19/21 History Centrum Silver Ultra Men's 1 tablet PO DAILY 10/22/20 11/19/21 History Fish Oil 1 cap PO DAILY 10/22/20 11/19/21 History Vitamin D3 Complete 1 tablet PO DAILY 10/22/20 11/19/21 History Laboratory Tests 11/19/21 07:05 POC Capillary Glucose 147 mg/dl H mg/dl (65-105) Patient hx anesthesia problems: none Family hx anesthesia problems: none Results Review: All pre-operative results and documents have been reviewed as part of the pre-operative evaluation. [facility] Past Medical History Medical History Colon cancer screening Colon carcinoma Diabetes type 2, controlled Hyperlipidemia Hypertension Surgical History Surgical History H/O ileostomy 11/26 Takedown of ileostomy History of appendectomy History of colon resection 10/30/20 . Hand assisted laparoscopic low anterior resection with low pelvic anastomosis, with loop ileostomy, Laparoscopic mobilization of splenic flexure History of colonoscopy History of eye surgery Family History Family History Father Cerebrovascular accident Dementia Diverticulitis Mother Diabetes mellitus Heart disease Dementia Sibling Cancer Social History Social History Smoking status: Former smoker Tobacco type: cigarettes Second hand tobacco smoke exposure: No Additional smoking assessment comments: had an occasional cigar 20 years ago Alcohol intake: former Alcohol use details: RARELY DRANK IN PAST Substance use: never Substance use type: does not use Living arrangements: with family Additional occupation/education comments: B[employer] Gender identity (if verbalized by the patient): Male Spiritual care concerns: No Anes - Eval Final PreProcedure Day of Procedure 11/19/21 07:31 Patient weight: overweight Heart: regular rate and rhythm Lungs: clear to auscultation and normal air movement Airway: Mallampati scale class II Neurological: alert and oriented Last oral intake: >/= 8 hours ASA classification: III Emergent: no Anesthetic plan: proceed Anesthesia type and monitoring: general GIVS Results Review: All pre-operative results and documents have been reviewed as part of the pre-operative evaluation. Informed Consent: The patient's anesthetic plan and its attendant risks and benefits were discussed with the patient/family/POA. Questions were solicited and answers provided to the satisfaction of the patient/family/POA.
--- NOTE | 2021-11-19 07:54 | PM.HPGS ---
History of Present Illness History of Present Illness Consent: Risks, benefits, and alternatives have been discussed and questions answered. Patient agrees to proceed with procedure. Chief complaint: hx of rectal ca Narrative: Everette Rosario is a 71 year old male with rectal cancer s/p Hand assisted laparoscopic low anterior resection a year ago. Review of Systems Constitutional: Constitutional: Denies headache(s) and Denies weakness Eyes: Eyes: Denies blurry vision ENT: Reports Normal hearing present, Denies headache(s) and Denies neck pain Cardiovascular: Cardiovascular: Denies chest pain and Denies dyspnea Respiratory: Respiratory: Denies dyspnea Gastrointestinal: Gastrointestinal: Reports no additional gastrointestinal complaints Genitourinary: Genitourinary: Denies dysuria Musculoskeletal: Musculoskeletal: Denies neck pain Integumentary/Breasts: Skin/Breast: Denies dry skin Neurologic: Reports Normal hearing present, Denies headache(s) and Denies weakness Psychiatric: Psychiatric: Denies anxiety Endocrine: Endocrine: Denies change in body appearance Hematologic/Lymphatic: Hematologic/Lymphatic: Denies easy bleeding Allergic/Immunologic: Allergic/Immunologic: Denies urticaria PMFSH Past Medical History Medical History Colon cancer screening Colon carcinoma Diabetes type 2, controlled Hyperlipidemia Hypertension Surgical History Surgical History H/O ileostomy 11/26 Takedown of ileostomy History of appendectomy History of colon resection 10/30/20 . Hand assisted laparoscopic low anterior resection with low pelvic anastomosis, with loop ileostomy, Laparoscopic mobilization of splenic flexure History of colonoscopy History of eye surgery Family History Family History Father Cerebrovascular accident Dementia Diverticulitis Mother Diabetes mellitus Heart disease Dementia Sibling Cancer Social History Social History Smoking status: Former smoker Tobacco type: cigarettes Second hand tobacco smoke exposure: No Additional smoking assessment comments: had an occasional cigar 20 years ago Alcohol intake: former Alcohol use details: RARELY DRANK IN PAST Substance use: never Substance use type: does not use Living arrangements: with family Additional occupation/education comments: [employer] Gender identity (if verbalized by the patient): Male Spiritual care concerns: No Meds Home Medications and Allergies Home Medications Medication Instructions Recorded Confirmed Type Januvia 100 mg PO QAM 09/09/20 11/19/21 History aspirin 81 mg PO DAILY 09/09/20 11/19/21 History atorvastatin 40 mg PO DAILY 09/09/20 11/19/21 History bisoprolol-hydrochlorothiazide 1 tablet PO QAM 09/09/20 11/19/21 History metformin 1,000 mg PO BID 09/09/20 11/19/21 History quinapril 20 mg PO BID 09/09/20 11/19/21 History Centrum Silver Ultra Men's 1 tablet PO DAILY 10/22/20 11/19/21 History Fish Oil 1 cap PO DAILY 10/22/20 11/19/21 History Vitamin D3 Complete 1 tablet PO DAILY 10/22/20 11/19/21 History Allergies Allergy/AdvReac Type Severity Reaction Status Date / Time Penicillins Allergy Unknown RASH/Skin Verified 11/19/21 06:54 Reaction procaine Allergy Unknown Rash/TISSUE Verified 11/19/21 06:54 IRRITATION Sulfa (Sulfonamide Allergy Unknown Skin Verified 11/19/21 06:54 Antibiotics) Reaction/RASH erythromycin base AdvReac Unknown Nausea Verified 11/19/21 06:54 Vital Signs Vital Signs - 24 hr 11/19/21 06:45 Temperature 96.1 F L Pulse Rate 56 L Respiratory Rate 18 Blood Pressure 171/69 H Pulse Oximetry 99 Exam Const: General: comfortable and no acute distress HENMT: General nose exam: Normal nares present Eye
[2021-11-19 08:10] VITALS: BP 118/61; PULSE 57; RESP 28; O2SAT 99
[2021-11-19 08:20] VITALS: BP 145/70; PULSE 46; RESP 13; O2SAT 99
[2021-11-19 08:30] VITALS: BP 155/69; PULSE 45; RESP 17; O2SAT 100
== END 2021-11-19 08:40 | disposition home or self-care (01) ==
PROVIDERS: PCP Physician Assistant; Visit Provider Internal Medicine Gastroenterology
PROC: 0DJD8ZZ Inspection of Lower Intestinal Tract, Via Natural or Artificial Opening Endoscopic (ICD-10-PCS; CPT 45378; principal; 2021-11-19 08:00)
DX: Z08 Encounter for follow-up examination after completed treatment for malignant neoplasm (principal); K57.30 Diverticulosis of large intestine without perforation or abscess without bleeding; K64.8 Other hemorrhoids; Z98.0 Intestinal bypass and anastomosis status; Z85.048 Personal history of other malignant neoplasm of rectum, rectosigmoid junction, and anus; Z90.49 Acquired absence of other specified parts of digestive tract; E11.9 Type 2 diabetes mellitus without complications; I10 Essential (primary) hypertension; E78.5 Hyperlipidemia, unspecified; Z87.891 Personal history of nicotine dependence; Z79.84 Long term (current) use of oral hypoglycemic drugs; Z79.82 Long term (current) use of aspirin
CPT/HCPCS: 45378; 82948; J2704; J7120

== ENCOUNTER 2021-12-22 08:35 | Outpatient (CLI) | payer MEDICARE, SELFPAY ==
[2021-12-22 08:57] LABS: Basophils Percent Auto 0.2 % (0.2-1.2); Eosinophils Absolute Auto 0.1 K/mm3 (0-0.3); Hematocrit 35.8 % (42.0-52.0); Hemoglobin 11.2 g/dL (14.0-18.0); Immature Granulocyte Absolute 0.23 K/mm3 (0.00-0.031); Immature Granulocyte Percent A 3.8 % (0-0.5); Lymphocytes Absolute Auto 1.54 K/mm3 (0.9-3.2); Lymphocytes Percent Auto 25.6 % (18.3-44.2); Mean Corpuscular HGB Conc 31.3 g/dl (32-36); Mean Corpuscular Hemoglobin 29.1 pg (26-34); Mean Platelet Volume 10.3 fl (7.4-10.4); Monocytes Absolute Auto 0.8 K/mm3 (0.1-0.6); Neutrophils Absolute Auto 3.4 K/mm3 (1.3-6.7); Neutrophils Percent Auto 56.4 % (45.5-73.1); Platelet Count Result 208 k/mm3 (150-375); Red Blood Count 3.85 M/mm3 (4.6-6.20); Red Cell Distribution Width 13.7 % (11.5-14.5)
[2021-12-22 09:33] LABS: Alanine Aminotransferase 19 U/L (4-50); Albumin Level 4.4 g/dL (3.5-5.1); Alkaline Phosphatase 63 U/L (38-126); Anion Gap 5 mmol/L (8-16); Aspartate Amino Transferase 31 U/L (17-59); Bilirubin,Total 0.5 mg/dL (0.2-1.3); Blood Urea Nitrogen 16 mg/dL (9-20); Calcium 9.3 mg/dL (8.4-10.2); Carbon Dioxide 28 mmol/L (22-30); Chloride 104 mmol/L (98-107); Estimated Glomerular Filt Rate > 60; Glucose 133 mg/dL (65-110); Sodium 137 mmol/L (137-145)
[2021-12-22 09:50] LABS: Iron 76 ug/dL (49-181)
[2021-12-22 10:00] LABS: Percent Iron Saturation 23 % (20-50)
[2021-12-22 10:23] LABS: Carcinoembryonic Antigen < 0.3 ng/mL (0.0-3.0)
[2021-12-22 10:39] LABS: Folic Acid > 20.0 ng/mL (2.76->20)
== END 2021-12-22 08:36 | disposition home or self-care (01) ==
LOC: ANHLAB 08:37
PROVIDERS: PCP Physician Assistant; Visit Provider Internal Medicine Hematology & Oncology
DX: C20 Malignant neoplasm of rectum (principal)
CPT/HCPCS: 36415; 80053; 82378; 82607; 82728; 82746; 83540; 83550; 85025

== ENCOUNTER 2022-04-16 10:43 | Outpatient (CLI) | payer MEDICARE, SELFPAY ==
[2022-04-16 11:10] LABS: Basophils Percent Auto 0.2 % (0.2-1.2); Eosinophils Percent Auto 0.5 % (0-4.4); Hematocrit 35.4 % (42.0-52.0); Hemoglobin 11.5 g/dL (14.0-18.0); Immature Granulocyte Absolute 0.34 K/mm3 (0.00-0.031); Immature Granulocyte Percent A 5.6 % (0-0.5); Lymphocytes Absolute Auto 1.59 K/mm3 (0.9-3.2); Lymphocytes Percent Auto 26.2 % (18.3-44.2); Mean Corpuscular HGB Conc 32.5 g/dl (32-36); Mean Corpuscular Hemoglobin 29.1 pg (26-34); Mean Corpuscular Volume 89.6 fl (80-100); Mean Platelet Volume 10.1 fl (7.4-10.4); Monocytes Absolute Auto 0.8 K/mm3 (0.1-0.6); Monocytes Percent Auto 13.7 % (2.6-8.5); Neutrophils Absolute Auto 3.3 K/mm3 (1.3-6.7); Neutrophils Percent Auto 53.8 % (45.5-73.1); Platelet Count Result 233 k/mm3 (150-375); Red Blood Count 3.95 M/mm3 (4.6-6.20); Red Cell Distribution Width 13.7 % (11.5-14.5); White Blood Count 6.1 K/mm3 (4.5-10.0)
[2022-04-16 14:24] LABS: Alanine Aminotransferase 25 U/L (6-50); Albumin Level 4.5 g/dL (3.5-5.1); Alkaline Phosphatase 60 U/L (38-126); Anion Gap 10 mmol/L (8-16); Aspartate Amino Transferase 27 U/L (17-59); Bilirubin,Total 0.6 mg/dL (0.2-1.3); Blood Urea Nitrogen 18 mg/dL (9-20); Calcium 9.4 mg/dL (8.4-10.2); Carbon Dioxide 27 mmol/L (22-30); Chloride 102 mmol/L (98-107); Estimated Glomerular Filt Rate > 60; Glucose 112 mg/dL (65-110); Potassium 4.2 mmol/L (3.4-5.0); Sodium 139 mmol/L (137-145)
[2022-04-16 14:27] LABS: Iron 62 ug/dL (49-181)
[2022-04-16 14:39] LABS: Percent Iron Saturation 18 % (20-50)
[2022-04-16 18:49] LABS: Carcinoembryonic Antigen < 0.3 ng/mL (0.0-3.0)
== END 2022-04-16 10:44 | disposition home or self-care (01) ==
LOC: ANHLAB 10:45
PROVIDERS: PCP Physician Assistant; Visit Provider Internal Medicine Hematology & Oncology
DX: D64.9 Anemia, unspecified (principal); C20 Malignant neoplasm of rectum
CPT/HCPCS: 36415; 80053; 82378; 82607; 82728; 83540; 83550; 85025

== ENCOUNTER 2022-06-09 19:33 | Observation (INO) | payer MEDICARE, SELFPAY ==
[2022-06-09] VITALS (21 sets, daily range): BP systolic 146–173; BP diastolic 64–77; PULSE 48–68; RESP 10–22; TEMP 36.1; O2SAT 95–100
--- NOTE | ~2022-06-09 | NM_ITS ---
EXAMINATION: NM ankit stress w perfusion DATE: 06/10/2022 15:15 INDICATION: Chest pain TECHNIQUE: Rest images were obtained following intravenous administration of 10.2 mCi Tc99m tetrofosm in (Myoview). The patient was infused intravenously with Lexiscan (Regadenoson). Then, 33 mCi Tc99m t etrofosmin (Myoview) was administered intravenously, and stress images were obtained. Data was recons tructed into short axis and horizontal and vertical long axis SPECT images. Gated SPECT images were a lso obtained. COMPARISON: None. FINDINGS: Moderate severity reversible perfusion defect involving the apical, apical inferior, mid in ferior, mid inferoseptal and apical lateral segments. Residual mild decreased perfusion on the rest i mages at the mid inferior wall could represent infarct or more likely diaphragmatic attenuation artif act.. There is normal left ventricular chamber size and wall motion. Mildly decreased left ventricul ar ejection fraction measures 42 %. IMPRESSION: 1. Large region of moderate reversible ischemia involving primarily the right coronary artery vascula r distribution as detailed above. 2. Left ventricular ejection fraction measuring 42%. Reviewed, dictated and finalized at location A. IMPRESSION: 1. Large region of moderate reversible ischemia involving primarily the right c oronary artery vascular distribution as detailed above. 2. Left ventricular ejection fraction measuring 42%.
--- NOTE | ~2022-06-09 | XR_ITS ---
EXAMINATION: XR chest 2V Exam Date/Time: 06/09/2022 20:04 CDT HISTORY: chest pain;epigastric pain this P.M.;hx of colon cancer, HTN Comparison: None available. RESULT: Lines, tubes, and devices: None. Lungs and pleura: Right lower lung peripheral reticulonodular opacities. Senescent change. No focal c onsolidation. Cardiomediastinal silhouette: Stable. Other: No acute osseous or upper abdominal finding. IMPRESSION: Peripheral, right lower lung opacities may represent bronchiolitis, as can be seen with atypical infe ction, asthma, aspiration, and small airways disease. Reviewed, dictated and finalized at location K. IMPRESSION: Peripheral, right lower lung opacities may represent bronchiolitis, as can be s een with atypical infection, asthma, aspiration, and small airways disease.
--- NOTE | 2022-06-09 19:36 | ECG_ITS ---
Measurements Intervals [place] Rate: 53 P: 15 CO: 208 QRS: -55 QRSD: 145 T: 20 QT: 479 QTc: 453 Interpretive Statements SINUS BRADYCARDIA RIGHT BUNDLE BRANCH BLOCK [120+ ms QRS DURATION, UPRIGHT V1, 40+ ms S IN I/aVL/V4/V5/V6] LEFT ANTERIOR FASCICULAR BLOCK [QRS AXIS <= -45, QR IN I, RS IN II] POSSIBLE LEFT VENTRICULAR HYPERTROPHY [VOLTAGE CRITERIA PLUS LAE OR QRS WIDENING] ABNORMAL ECG COMPARED TO ECG 10/22/2020 15:06:28 LEFT ANTERIOR FASCICULAR BLOCK NOW PRESENT Electronically Signed On 06-10-2022 10:19:07 CDT by Bassam Heredia M.D.
[2022-06-09 20:13] LABS: Basophils Percent Auto 0.3 % (0.2-1.2); Eosinophils Percent Auto 0.5 % (0-4.4); Hematocrit 37.1 % (42.0-52.0); Hemoglobin 12.3 g/dL (14.0-18.0); Immature Granulocyte Absolute 0.42 K/mm3 (0.00-0.031); Immature Granulocyte Percent A 6.5 % (0-0.5); Lymphocytes Absolute Auto 1.57 K/mm3 (0.9-3.2); Lymphocytes Percent Auto 24.1 % (18.3-44.2); Mean Corpuscular HGB Conc 33.2 g/dl (32-36); Mean Corpuscular Hemoglobin 30.3 pg (26-34); Mean Corpuscular Volume 91.4 fl (80-100); Mean Platelet Volume 10.9 fl (7.4-10.4); Monocytes Absolute Auto 0.7 K/mm3 (0.1-0.6); Monocytes Percent Auto 11.4 % (2.6-8.5); Neutrophils Absolute Auto 3.7 K/mm3 (1.3-6.7); Neutrophils Percent Auto 57.2 % (45.5-73.1); Platelet Count Result 203 k/mm3 (150-375); Red Blood Count 4.06 M/mm3 (4.6-6.20); Red Cell Distribution Width 13.3 % (11.5-14.5); White Blood Count 6.5 K/mm3 (4.5-10.0)
[2022-06-09] MEDS: ASPIRIN 81 MG CHEWABLE TABLET 324 MG PO (20:21)
--- NOTE | 2022-06-09 20:21 | ED.CHESTPAIN ---
HPI - Chest Pain General Chief Complaint: Chest Pain Stated Complaint: chest painx1 wk Time Seen by Provider: 06/09/22 19:53 History of Present Illness HPI narrative: Patient is a 71-year-old male who presents ER with intermittent chest discomfort over the last 1 to 2 weeks. Most recently patient had discomfort tonight at 6 PM. It was 1 hour after eating dinner. He had burning in his chest similar to when he walked out into cold weather and feel your lungs change in temperature. It was then accompanied by a strong ache in his upper abdomen that would move upwards. Symptoms lasted 5 minutes. No radiation into the shoulders or back. Is alleviated by belching and by taking some antiacids. No diarrhea. No fevers chills or sweats. No history of heart disease. No history of gallbladder issues. Unsure if symptoms of been related to eating but he has had these issues at night when sleeping as well. Related Data Home Medications Medication Instructions Recorded Confirmed aspirin 81 mg tablet 81 mg PO DAILY 09/09/20 11/19/21 atorvastatin 40 mg tablet 40 mg PO DAILY 09/09/20 11/19/21 bisoprolol 5 1 tablet PO QAM 09/09/20 11/19/21 mg-hydrochlorothiazide 6.25 mg tablet metformin 1,000 mg tablet 1,000 mg PO BID 09/09/20 11/19/21 quinapril 20 mg tablet 20 mg PO BID 09/09/20 11/19/21 sitagliptin 100 mg tablet (Januvia) 100 mg PO QAM 09/09/20 11/19/21 multivit with 1 tablet PO DAILY 10/22/20 11/19/21 azb-shtm-[id number] 18 mg iron-800 mcg-150 mg tablet (Vitamin D3 Complete) uctmjfgr-yeb-pghmn acid 300 1 tablet PO DAILY 10/22/20 11/19/21 mcg-lycopene 600 mcg-lutein 300 mcg tablet (Centrum Silver Ultra Men's) omega 1-oer-vha-fish oil 100 1 cap PO DAILY 10/22/20 11/19/21 mg-160 mg-1,000 mg capsule (Fish Oil) Allergies Allergy/AdvReac Type Severity Reaction Status Date / Time Penicillins Allergy Unknown RASH/Skin Verified 06/09/22 19:34 Reaction procaine Allergy Unknown Rash/TISSUE Verified 10/18/22 19:34 IRRITATION Sulfa (Sulfonamide Allergy Unknown Skin Verified 06/09/22 19:34 Antibiotics) Reaction/RASH erythromycin base AdvReac Unknown Nausea Verified 06/09/22 19:34 Review of Systems Review of Systems: All systems reviewed & are unremarkable except as noted in HPI and below Constitutional: Constitutional: Denies chills and Denies fever(s) ENT: Denies nasal congestion and Denies sore throat Cardiovascular: Cardiovascular: Reports chest pain, Denies rapid heart rate and Denies radiating jaw, neck or arm pain Respiratory: Respiratory: Denies chest congestion, Denies cough and Denies dyspnea Gastrointestinal: Gastrointestinal: Reports abdominal pain, Reports heartburn, Denies diarrhea, Denies nausea and Denies vomiting PMFSH Past Medical History Medical History Colon cancer screening Colon carcinoma Diabetes type 2, controlled Hyperlipidemia Hypertension Surgical History Surgical History H/O ileostomy 11/26 Takedown of ileostomy History of appendectomy History of colon resection 10/30/20 . Hand assisted laparoscopic low anterior resection with low pelvic anastomosis, with loop ileostomy, Laparoscopic mobilization of splenic flexure History of colonoscopy History of eye surgery Family History Family History Father Cerebrovascular accident Dementia Diverticulitis Mother Diabetes mellitus Heart disease Dementia Sibling Cancer Social History Social History Smoking status: Former smoker Tobacco type: cigarettes Second hand tobacco smoke exposure: No Additional smoking assessment comments: had an occasional cigar 20 years ago Alcohol intake: former Alcohol use details: RARELY DRANK IN PAST Substance use: never Substance use typ
[2022-06-09 20:24] LABS: INR 1.2; Prothrombin Time 14.6 Seconds (11.1-14.7)
[2022-06-09 20:25] LABS: Partial Thromboplastin Time 28.2 SECONDS (22.3-36.8)
[2022-06-09 20:41] LABS: Alanine Aminotransferase 24 U/L (6-50); Albumin Level 4.5 g/dL (3.5-5.1); Alkaline Phosphatase 73 U/L (38-126); Anion Gap 11 mmol/L (8-16); Aspartate Amino Transferase 32 U/L (17-59); Bilirubin,Total 0.4 mg/dL (0.2-1.3); Blood Urea Nitrogen 26 mg/dL (9-20); Calcium 9.5 mg/dL (8.4-10.2); Carbon Dioxide 27 mmol/L (22-30); Chloride 104 mmol/L (98-107); Estimated CRCL calculation 62 ml/min; Estimated Glomerular Filt Rate > 60; Glucose 116 mg/dL (65-110); Lipase 136 U/L (23-300); Sodium 142 mmol/L (137-145)
[2022-06-09 20:52] LABS: Troponin I 0.014 ng/mL (0.000-0.034)
[2022-06-10] VITALS (31 sets, daily range): BP systolic 156–183; BP diastolic 54–75; PULSE 43–78; RESP 10–20; TEMP 36–36.6; O2SAT 96–100; BMI 24.6
--- NOTE | 2022-06-10 | ECHO_ITS ---
Patient Info Name: Everette Rosario Age: 71 years : 1950 Gender: Male Ht: 71 in Wt: 176 lbs BSA: 2.01 m2 HR: 44 bpm BP: 167 / 66 mmHg Heart Rhythm: Sinus Rhythm Technical Quality: Fair Exam Date: 06/10/2022 12:37 PM Exam Location: [facility] Patient Status: Inpatient Admit Date: 06/09/2022 Staff Ordering Physician: Bassam Heredia MD Certified Master Locksmith: Mary Anne Byrne RDCS Attending Provider: Miles Esqueda MD Referring Physician: Giovanna BROCK; Exam Type: CA echo dop color flow w con Study Info Indications - chest pain, hypertension, diabetes Complete two-dimensional, color flow and Doppler transthoracic echocardiogram is performed with contrast to opacify the left ventricle and to improve the deliniation of the left ventricle endocardial borders. Contrast/Agitated Saline Contrast/Ag. Saline: Definity Amount: 3.00 ml Administered By: Mary Anne Byrne RDCS Existing IV Access: Yes IV Access Condition: patent with no signs of infiltration Summary 1. Left ventricular chamber dimension is normal. 2. Left ventricular systolic function is normal, estimated at 60-65%. 3. There is mildly increased left ventricular wall thickness. 4. The left ventricular diastolic function is grade II diastolic dysfunction. 5. Left atrial chamber dimension is moderately enlarged. 6. There is mild aortic valve calcification. 7. The mitral valve annulus is severely calcified. 8. There is mild mitral valve regurgitation. 9. There is mild tricuspid valve regurgitation. 10. Mild pulmonary hypertension, estimated pulmonary arterial systolic pressure is 36 mmHg. Left Ventricle Left ventricular chamber dimension is normal. Left ventricular systolic function is normal, estimated at 60-65%. There is mildly increased left ventricular wall thickness. The left ventricular diastolic function is grade II diastolic dysfunction. Right Ventricle Right ventricular chamber dimension is normal. Right ventricular systolic function is normal. Left Atria Left atrial chamber dimension is moderately enlarged. Right Atria Right atrial chamber dimension is normal. Atrial Septum Intact interatrial septum visualized by color flow imaging. Aortic Valve The aortic valve is trileaflet. There is no aortic valve stenosis. There is trace aortic valve regurgitation. There is mild aortic valve calcification. Pulmonic Valve The pulmonic valve is normal. There is no pulmonic valve stenosis. There is trace pulmonic regurgitation. Mitral Valve The mitral valve has thickened leaflets. There is no mitral valve stenosis. There is mild mitral valve regurgitation. The mitral valve annulus is severely calcified. Tricuspid Valve The tricuspid valve leaflets are normal. There is no significant tricuspid valve stenosis. There is mild tricuspid valve regurgitation. Mild pulmonary hypertension, estimated pulmonary arterial systolic pressure is 36 mmHg. Pericardium/Pleural The pericardium appears normal. There is no pericardial effusion. Inferior Vena Cava Normal inferior vena cava with <50% collapse upon inspiration consistent with elevated right atrial pressure, 10 mmHg. Aorta The aortic root size at the sinus of Valsalva is normal. Left Ventricular Outflow Tract Name Value Normal -----
--- NOTE | 2022-06-10 | ECG_ITS ---
Measurements Intervals [place] Rate: 61 P: 37 NC: 195 QRS: -66 QRSD: 149 T: 65 QT: 482 QTc: 487 Interpretive Statements SINUS RHYTHM RIGHT BUNDLE BRANCH BLOCK [120+ ms QRS DURATION, UPRIGHT V1, 40+ ms S IN I/aVL/V4/V5/V6] LEFT ANTERIOR FASCICULAR BLOCK [QRS AXIS <= -45, QR IN I, RS IN II] MARKED ST DEPRESSION, CONSIDER SUBENDOCARDIAL INJURY [0.2+ mV ST DEPRESSION] ABNORMAL EKG SIGNIFICANT ST ABNORMALITIES ARE NOT PRESENT Electronically Signed On 06-10-2022 15:34:22 CDT by Bassam Heredia M.D.
[2022-06-10 02:06] LABS: Troponin I 0.018 ng/mL (0.000-0.034)
--- NOTE | 2022-06-10 02:29 | PC.NURSE ---
Melvi BRANDON to call back from IMU. This RN attempted to call report at [phone].
--- NOTE | 2022-06-10 02:48 | ADMGEN ---
This patient, Everette Rosario, was admitted to IMU Room 211-01 at 0240. Patient/family oriented to hospital policies and general routines including ID bracelet, bed and alarms, visiting hours, pain management, procedures, bathroom and other care routines, personal items, smoking policy, room service/diet, and visiting hours. Information on how to activate the Rapid Response Team has been discussed. Patient/Family are encouraged to report perceived risks to care and to ask questions if they do not understand what they are told or what they should do.
[2022-06-10 10:28] LABS: SARS-CoV-2 RNA PCR Negative
--- NOTE | 2022-06-10 12:00 | EST_ITS ---
Patient Info Name: Everette Rosario Age: 71 years : 1950 Gender: Male Ht: 71 in Wt: 176 lbs BSA: 2.01 m2 Exam Date: 06/10/2022 2:30 PM Exam Location: [facility] Stress Patient Status: Outpatient Admit Date: 06/09/2022 Staff Ordering Physician: Bassam Heredia MD Attending Provider: Miles Esqueda MD Exercise Technologist: Alo Daly RDCS, RT Exercise Physician: Bassam Heredia MD Exam Type: CA stress ankit w NM Study Info A regadenoson stress test was performed. Summary 1. Please correlate with nuclear medicine images, reported separately. 2. Abnormal ST segment depression consistent with myocardial ischemia. Protocol: Lexiscan Stress ECG Details Stage: REST Duration (min): 1 min : 48 sec HR (bpm): 45 SBP (mmHg): 181 DBP (mmHg): 73 Stage: REST Duration (min): 8 min : 49 sec HR (bpm): 46 SBP (mmHg): 181 DBP (mmHg): 73 Stage: STAGE 1 Duration (min): 0 min : 59 sec HR (bpm): 56 SBP (mmHg): 177 DBP (mmHg): 58 Stage: RECOVERY Duration (min): 1 min : 0 sec HR (bpm): 69 SBP (mmHg): 177 DBP (mmHg): 58 Stage: RECOVERY Duration (min): 2 min : 0 sec HR (bpm): 68 SBP (mmHg): 177 DBP (mmHg): 58 Stage: RECOVERY Duration (min): 3 min : 0 sec HR (bpm): 66 SBP (mmHg): 177 DBP (mmHg): 58 Stage: RECOVERY Duration (min): 3 min : 5 sec HR (bpm): 66 SBP (mmHg): 177 DBP (mmHg): 58 Rest HR: 46 bpm Peak HR: 69 bpm Rest Sys BP: 181 mmHg Peak Sys BP: 177 mmHg Max Pred HR: 147 bpm % Max Pred HR: 47 % Target HR: 125 bpm Max RPP: 12,213 bpm*mmHg Target HR Summary: Hemodynamic response to exercise was normal BP Response: Normal blood pressure response Termination Reason: Completed protocol Cardiac Symptoms: Chest pain Total Time: 1 min : 0 sec Rest Johnson BP: 73 mmHg Peak Johnson BP: 58 mmHg Total Dose: 0.4 mg Resting ECG Normal sinus rhythm. Right bundle branch block. LAFB. Stress ECG Greater than 1 mm of horizontal or downsloping ST depression - anterior leads. Greater than 1 mm of horizontal or downsloping ST depression - inferolateral leads. Arrhythmias None. Report Signatures
--- NOTE | 2022-06-10 12:02 | PM.CNCAR ---
Assessment and Plan Assessment and plan (1) Chest pain: Code(s): R07.9 - Chest pain, unspecified Status: Acute Assessment and Plan: Probably GI in etiology. It certainly atypical. His symptoms generally occur after eating. It could be postprandial angina however given the fact that it improves with Tagamet and or ibuprofen, is much more likely to be from a GI source. Will start him on Protonix 40 mg daily. Because of his diabetes, hypertension, age and hyperlipidemia, I do think it is reasonable to pursue a stress test. Will order a Lexiscan myocardial perfusion study. If normal, he may be discharged home for follow-up with Bety Rollins. If abnormal, he may need coronary angiogram. 2D echocardiogram Doppler also be ordered and reviewed. Will continue his aspirin, atorvastatin, bisoprolol/hydrochlorothiazide, quinapril. (2) Hypertension associated with diabetes: Code(s): E11.59 - Type 2 diabetes mellitus with other circulatory complications; I15.2 - Hypertension secondary to endocrine disorders Status: Acute Assessment and Plan: Continue home medications. Also continue home diabetic regimen per hospitalist (3) Hyperlipidemia associated with type 2 diabetes mellitus: Code(s): E11.69 - Type 2 diabetes mellitus with other specified complication; E78.5 - Hyperlipidemia, unspecified Status: Acute Assessment and Plan: Continue statin History of Present Illness History of Present Illness Consult date/time: 06/10/22 12:02 Requesting physician: Miles Esqueda MD Consult reason: chest pain Reason For Visit: Chest Pain Narrative: Reason for consultation: Chest pain Date of service 06/10/2022 Requesting provider: Dr. Reyna History patient is a 71-year-old male without known coronary history. Does have hypertension, hyperlipidemia and diabetes. He came to the hospital because of some upper abdominal, lower chest discomfort. It is been occurring off and on for about 2 weeks. His symptoms generally occur soon or within a half an hour after eating. His symptoms have waking him up at night however. His symptoms are generally not exertional. The 1st episode did occur however while walking but this was about 30 minutes after eating his breakfast. He describes as a burning sensation as if he has gone outside in cold weather. He states that taking big breath actually helps his symptoms. He also describes as a heavy toothache. It usually occurs within an hour after eating food and will last for 5-30 minutes is improved with either ibuprofen and/or Tagamet. He does feel little short of breath at that time and with associated symptoms and his symptoms do not radiate into his arm back neck or jaw. Yesterday his symptoms occurred about 30 minutes after eating a Caesar salad. He came to hospital for further workup evaluation treatment. His troponins are negative. He otherwise denies any syncope, presyncope, paroxysmal nocturnal dyspnea, orthopnea, edema, shortness of breath or palpitations. Review of Systems Review of Systems: All systems reviewed & are unremarkable except as noted in HPI and below Constitutional: Constitutional: Denies body ache(s) Eyes: Eyes: Denies blurry vision ENT: Comments: Hard of hearing Cardiovascular: Cardiovascular: Reports chest pain, Denies pedal edema and Denies palpitations Respiratory: Respiratory: Denies dyspnea Gastrointestinal: Gastrointestinal: Denies abdominal pain Comments: History of colon cancer Genitourinary: Genitourinary: Denies hematuria Musculoskeletal: Musculoskeletal: Denies back pain Integumentary/Breasts: Skin/Breast: Denies dry skin Neurologic: Denies Abnormal speech present Psychiatric: Psychiatric: Denies confusion Endocrine: Endocrine: Denies excessive sweating and Denies fatigue Hematologic/Lymphatic: Hematologic/Lymphatic: Denies easy bleeding Allergic/Immunologic: Allergic/Immunologic: Denies
[2022-06-10] MEDS: PERFLUTREN LIPID MICROSPHERES 1.5 ML VIAL DILUTED TO 10 ML TOTAL VOLUME IV PUSH (13:10)
--- NOTE | 2022-06-10 13:10 | IVDEFINITY ---
Prior to administration of IV Definity the patient was educated on the risks and benefits of the imaging enhancing agent including potential adverse side effects. The patient verbalized understanding. Allergies were verified. No exclusion criteria were identified and at least one of the following inclusion criteria were met: 1) physician request, 2) patient technically difficult to image (per the [place] [employer] guidelines of two or more segments not discernable within the apical view), or 3) questionable left ventricular function. ?
--- NOTE | 2022-06-10 14:15 | PM.IMHP ---
H&P: HPI History of Present Illness Date/Time: 06/10/22 14:15 Chief Complaint: Chest pain Narrative: This is a 71-year-old male patient who is very hard of hearing. His daughter is at the bedside answering questions for me. The patient has no prior history of her having any acid reflux. The patient came in last night due to intermittent chest discomfort over the last 1-2 weeks the patient had discomfort the night before her that came on 1 hour after eating dinner. The patient had a similar sensation when he walked out in the code and at the temperature change. The patient also had a strong ache in his upper abdomen and moved upward. The symptoms lasted about 5 minutes. No radiation to shoulders are back the pain was alleviated temp belching and taking in acids. He had no fever chills. No nausea vomiting. No diaphoresis. No history of heart disease. No history of any gallbladder symptoms. He does not have a Daly sign. Patient's troponins were negative x3. The patient was getting a echocardiogram when I was in the room. Cardiology has been consulted and has already seen the patient. Patient will receive a Lexiscan today and if that is negative the patient may go home. The patient has no current chest pain and was started on pantoprazole. H&H is 12.3 and 37.1 which is his baseline. Patient's EKG was read as sinus bradycardia right bundle-branch block. Patient is being admitted to observation status but will be discharged today if his stress test is negative. Review of Systems Review of Systems: See HPI All systems reviewed & are unremarkable except as noted in HPI and below Constitutional: Constitutional: Reports as per HPI and Reports no additional constitutional complaints Eyes: Eyes: Reports as per HPI and Reports no additional eye complaints ENT: Reports system reviewed and no additional complaints, except as documented and Reports Normal hearing present Cardiovascular: Cardiovascular: Reports no additional cardiovascular complaints Respiratory: Respiratory: Reports no additional respiratory complaints and Reports no additional respiratory complaints Gastrointestinal: Gastrointestinal: Reports as per HPI and Reports no additional gastrointestinal complaints Musculoskeletal: Musculoskeletal: Reports no additional musculoskeletal complaints Integumentary/Breasts: Skin/Breast: Reports system reviewed and no additional complaints, except as docu and Reports as per HPI Neurologic: Reports system reviewed and no additional complaints, except as documented, Reports as per HPI and Reports Normal hearing present Psychiatric: Psychiatric: Reports no additional psychiatric complaints and Reports as per HPI Endocrine: Endocrine: Reports no additional endocrine complaints Hematologic/Lymphatic: Hematologic/Lymphatic: Reports no additional hematologic/lymphatic complaints Allergic/Immunologic: Allergic/Immunologic: Reports no additional allergic/immunologic complaints PMFSH Past Medical History Medical History Colon cancer screening Colon carcinoma Diabetes type 2, controlled Hyperlipidemia Hypertension Surgical History Surgical History H/O ileostomy 11/26 Takedown of ileostomy History of appendectomy History of colon resection 10/30/20 . Hand assisted laparoscopic low anterior resection with low pelvic anastomosis, with loop ileostomy, Laparoscopic mobilization of splenic flexure History of colonoscopy History of eye surgery Family History Family History Father Cerebrovascular accident Dementia Diverticulitis Mother Diabetes mellitus Heart disease Dementia Sibling Cancer Social History Social History (Updated 06/10/22 @ 14:23 by Tessa Haynes NP) Social History: The patient lives home alone. He has 2 biological children and 1 stepchi
--- NOTE | 2022-06-10 15:22 | WPDMODSED ---
Moderate Sedation Note-Pt Data Patient Data Diagnosis: chest pain with abnormal Lexiscan nuclear stress test diabetes hypertension bifascicular block Present Complaint: chest pain Procedure to be performed/Plan: left heart catheterization Allergies Allergy/AdvReac Type Severity Reaction Status Date / Time Penicillins Allergy Unknown RASH/Skin Verified 06/09/22 19:34 Reaction procaine Allergy Unknown Rash/TISSUE Verified 06/09/22 19:34 IRRITATION Sulfa (Sulfonamide Allergy Unknown Skin Verified 06/09/22 19:34 Antibiotics) Reaction/RASH erythromycin base AdvReac Unknown Nausea Verified 06/09/22 19:34 Home Medications Medication Instructions Recorded Confirmed Type atorvastatin 40 mg tablet 40 mg PO DAILY 09/09/20 06/10/22 History bisoprolol 5 1 tablet PO DAILY 09/09/20 06/10/22 History mg-hydrochlorothiazide 6.25 mg tablet metformin 1,000 mg tablet 1,000 mg PO BID 09/09/20 06/10/22 History quinapril 20 mg tablet 20 mg PO BID 09/09/20 06/10/22 History sitagliptin 100 mg tablet (Januvia) 100 mg PO QAM 09/09/20 06/10/22 History fsfbfnue-juc-vbvdz acid 300 1 tablet PO DAILY 10/22/20 06/10/22 History mcg-lycopene 600 mcg-lutein 300 mcg tablet (Centrum Silver Ultra Men's) omega 6-gov-kkz-fish oil 100 1 cap PO DAILY 10/22/20 06/10/22 History mg-160 mg-1,000 mg capsule (Fish Oil) aspirin 81 mg tablet,delayed 81 mg PO DAILY 06/10/22 06/10/22 History release (Adult Low Dose Aspirin) Current Medications: Active Medications Aspirin (Aspirin 81 Mg Enteric Tablet) 81 mg PO DAILY ALAN Atorvastatin Calcium (Atorvastatin 40 Mg Tablet) 40 mg PO DAILY ALAN Bisoprolol Fumarate (Bisoprolol Fumarate 5 Mg Tablet) 5 mg PO DAILY [facility] Stop: 07/11/22 08:59 Dextrose (Dextrose 50% 25 Gm/50 Ml Syringe) 12.5 gm IV PUSH PRN PRN; Protocol PRN Reason: Hypoglycemia Fish Oil (Sc[place]ey 3 Polyunsat Fatty Acids 1 Gm Cap) 1 gm PO DAILY [facility] Stop: 07/11/22 08:59 Glucagon (Glucagon For Inj 1 Mg Vial) 1 mg IM PRN PRN; Protocol PRN Reason: Hypoglycemia Glucose (Glucose Oral Gel 15 Gm Of Glucse In 37.5 Gm Tube) 15 gm PO PRN PRN; Protocol PRN Reason: Hypoglycemia Hydrochlorothiazide (Hydrochlorothiazide 6.25 Mg Tablet) 6.25 mg PO DAILY ALAN Stop: 07/11/22 08:59 Acetaminophen (Ofirmev 1,000 Mg Ivpb) 1,000 mg in 100 mls @ 400 mls/hr IVPB Q6H PRN PRN Reason: Mild Pain (1-3) or Fever Stop: 06/10/22 23:39 Dextrose (Dextrose 5% 1,000 Ml) 1,000 mls @ 100 mls/hr IVPB PRN PRN; Protocol PRN Reason: Hypoglycemia Insulin Aspart (Insulin Aspart (*Bkc) 100 Units/Ml) 2 - 5 units SUB-Q TIDWM ALAN; Protocol Lisinopril (Lisinopril 20 Mg Tablet) 20 mg PO Q12HR ALAN Morphine Sulfate (Morphine Sulfate (*Crx) 4 Mg/Ml Inj) 4 mg IV PUSH Q2H PRN PRN Reason: Pain Rated 7-10 Multivitamins/Minerals (Opti-Gen Tab) 1 tablet PO DAILY ALAN Ondansetron HCl (Ondansetron Inj 4 Mg/2 Ml Vial) 4 mg IV PUSH Q4H PRN PRN Reason: Nausea Pantoprazole Sodium (Pantoprazole 40 Mg Tablet) 40 mg PO QAM ALAN Sitagliptin Phosphate (Sitagliptin 100 Mg Tablet) 100 mg PO QAM ALAN Sedation/Anesthesia: No previous sedation/anesthesia problems (including family history). [facility] Past Medical History Medical History Colon cancer screening Colon carcinoma Diabetes type 2, controlled Hyperlipidemia Hypertension Surgical History Surgical History H/O ileostomy 11/26 Takedown of ileostomy History of appendectomy History of colon resection 10/30/20 . Hand assisted laparoscopic low anterior resection with low pelvic anastomosis, with loop ileostomy, Laparoscopic mobilization of splenic flexure History of colonoscopy History of eye surgery Family History Family History Father Cerebrovascular accident Dementia Diverticulitis Mother Diabetes mellitus Heart disease Dementia Sibli
[2022-06-10] MEDS: PANTOPRAZOLE 40 MG TABLET PO (15:29)
[2022-06-10] MEDS: ASPIRIN 81 MG ENTERIC TABLET PO (15:39)
--- NOTE | 2022-06-10 15:42 | PC.NURSE ---
Patient taken off floor by Airport Location Manager RN, who received report and prepared patient for urgent cardiac cath. IV patent. Patient updated with family and consent has been signed. Dr. Champion and Dr. Heredia have both updated patient on expectations, risks, and benefits associated with having a procedure done.
--- NOTE | 2022-06-10 16:43 | WPDCARDPROC ---
Cardiac Cath Procedure Note Date of procedure:: 06/10/22 Performing physician:: Madhav Champion MD Indication:: chest pain markedly abnormal nuclear stress test Brief clinical history:: this is a 71-year-old man with non insulin-dependent diabetes hypertension and dyslipidemia. He presents with intermittent episodes of postprandial chest pain. A nuclear stress test done earlier today was markedly abnormal with ischemic left ventricular dilatation any had significant chest pain following Lexiscan injection and relatively severe ST segment depression. He is feeling better now but because of this angiography has been recommended for today. Procedure Procedure performed:: Left ventriculogram coronary angiogram insertion of intra-aortic balloon pump Sedation/Medication given:: Versed 2 mg case start time 3:56 p.m. case end time 4:33 p.m. sedation provided Jennifer Real RN, trained observer Access site:: right femoral artery Estimated blood loss:: 30 cc Procedure note:: patient was brought to the cardiac catheterization lab in the postabsorptive state where the right femoral triangle was prepared and draped in the normal fashion. Anesthesia was provided with 1% lidocaine infiltrated locally. Using the modified Seldinger technique a 5 Polish vascular sheath was placed in the right femoral artery after this left heart catheterization was carried out. I 1st performed a left ventriculogram using a 5 Polish angled pigtail catheter and measured and left-sided hemodynamics and pullback pressures across the aortic valve. Following this I used a 5 Polish JR4 catheter to engage and inject the right artery in multiple projections and then a 5 Polish FL4 catheter to engage and inject the left coronary artery in multiple projections. The cineangiograms were then reviewed and decision was made to place an intra-aortic balloon pump and transfer the patient for cardiothoracic surgical consultation for surgical revascularization. Prior to placing the balloon pump after changing sheaths the patient received 7000 units of heparin IV push as a bolus. If further balloon pump was placed into the descending thoracic aorta under fluoroscopic visualization and connected and one-to-one pumping was initiated. The device was sutured into position using 2-0 silk ties and addressed with an occlusive dressing. Patient was taken to the ICU because of the balloon pump and proper plans will be made for transfer to a cardiothoracic surgical center. Findings:: Hemodynamics: Central aortic pressure was 160 over 58 left ventricle 164/5 end-diastolic pressure 18. There is no significant aortic transvalvular gradient. Left ventricle: The left ventricle is normal in size the a distal inferior wall is mildly hypodynamic the remainder of the LV contracts well with a global ejection fraction of 50-55%. The left main coronary artery is medium in caliber and proximally is free of stenosis in the distal portion of the left main there is an eccentric stenosis of 50-60%. The left anterior descending is a medium caliber artery that extends down to the apex. The proximal LAD has a 99% stenosis then there is 95% stenosis at the origin of the major diagonal branch which is medium in caliber. The diagonal branch has a bifurcation and at that point has a 90% stenosis. The circumflex is a small caliber vessel the 1st OM takes off is a ramus intermedius vessel that has a proximal 99% lesion. The 2nd very small obtuse marginal has diffuse disease without focal stenosis. The right coronary artery is very large caliber and dominant to the posterior circulation there is 99% ostial stenosis the vessel is then very large there is a 90-95% stenosis in the 2nd portion and a 3rd high-grade 90% stenosis between the 2nd and 3rd portion. The RPDA is from large and free of significant disease the RPL branch has no significant lesions and is much smaller. Conclusion:
--- NOTE | 2022-06-10 17:10 | PC.NURSE ---
Addendum entered by Lyndsay French RN 06/10/22 18:10: Balloon pump intact and working appropriately in 1:1. Pedal pulse palpable. Dressing clean, dry, and intact Original Note: Pt received from quality assurance lab technician via bed with balloon pump intact. A&O x 4, VS stable and no pain noted
[2022-06-10] MEDS: SODIUM CHLORIDE 0.9% IV 1,000 ML 125 ML IV CONT (17:27)
[2022-06-10] MEDS: HEPARIN SOD/D5W 100 UNITS/ML 25,000 UNITS/250 ML BAG 10 UNITS IV CONT (17:28)
[2022-06-10 17:31] LABS: Glucose Point of Care 93 mg/dl (65-105)
[2022-06-10 17:47] LABS: Basophils Percent Auto 0.1 % (0.2-1.2); Eosinophils Percent Auto 0.3 % (0-4.4); Hematocrit 35.4 % (42.0-52.0); Hemoglobin 11.6 g/dL (14.0-18.0); Immature Granulocyte Absolute 0.46 K/mm3 (0.00-0.031); Immature Granulocyte Percent A 5.8 % (0-0.5); Lymphocytes Percent Auto 17.7 % (18.3-44.2); Mean Corpuscular HGB Conc 32.8 g/dl (32-36); Mean Corpuscular Volume 91.5 fl (80-100); Mean Platelet Volume 10.7 fl (7.4-10.4); Monocytes Absolute Auto 0.7 K/mm3 (0.1-0.6); Monocytes Percent Auto 8.4 % (2.6-8.5); Neutrophils Absolute Auto 5.4 K/mm3 (1.3-6.7); Neutrophils Percent Auto 67.7 % (45.5-73.1); Platelet Count Result 182 k/mm3 (150-375); Red Blood Count 3.87 M/mm3 (4.6-6.20); Red Cell Distribution Width 13.3 % (11.5-14.5); White Blood Count 7.9 K/mm3 (4.5-10.0)
[2022-06-10 18:05] LABS: INR 1.3; Prothrombin Time 16.1 Seconds (11.1-14.7)
[2022-06-10 19:13] LABS: Partial Thromboplastin Time > 200.0 SECONDS (22.3-36.8)
--- NOTE | 2022-06-10 19:50 | PC.NURSE ---
Report given to Patel Almeida at [facility] Surgical ICU.
[2022-06-10 20:15] LABS: Glucose Point of Care 86 mg/dl (65-105)
[2022-06-10] MEDS: lisinopriL 20 MG TABLET PO (20:33)
--- NOTE | 2022-06-10 20:58 | PC.NURSE ---
Updated [facility] Surgical ICU that EMS ETA to [facility] [id number].
--- NOTE | 2022-06-10 21:45 | PC.NURSE ---
Updated daughter, Monisha, on EMS ETA to [facility].
--- NOTE | 2022-06-10 22:06 | PC.NURSE ---
Updated family and accepting facility on new EMS ETA to [facility].
--- NOTE | 2022-06-11 | PC.NURSE ---
Patient with balloon pump transferred to [facility] via EMS with RN at bedside without issue. [facility] welfare interviewer, Elle, at bedside. No new updates at this time. No changes in patient status. Right groin site unchanged.
--- NOTE | 2022-07-10 13:49 | PM.DS ---
DS: Admitting Diagnosis Discharge Date 06/10/22 Admitting Diagnosis Chest pain DS: Discharge Diagnosis Discharge Diagnosis (1) Chest pain: Code(s): R07.9 - Chest pain, unspecified Status: Acute Assessment and Plan: The patient was taken to the cardiac catheterization lab please see cardiology cardiac catheterization note per Dr. Madhav Champion 1.? ? Right coronary dominant circulation with extensive 3 vessel coronary artery disease 2. ? subtotal ostial stenosis and subsequent 90-95% lesions in the large dominant RCA as described above.? The RPDA appears to be a good target for revascularization 3. ? mild eccentric distal left main stenosis 4. ? high-grade proximal LAD lesion of 99% followed by 90-95% stenosis at the origin of the diagonal branch and 90% stenosis in the diagonal itself 5. ? 1st OM branch which takes off as high ramus intermedius that has 99% stenosis. 6.? ? Mild inferior /diaphragmatic hypokinesia with overall normal left ventricular ejection fraction 7. ? given this patient's critical anatomy intra-aortic balloon counterpulsation pump was placed he will not be heparinized and taken to the ICU with balloon pump well plans are made for transfer for cardiothoracic surgery consultation ?Madhav Champion MD [facility] This dictation may have been done utilizing a voice recognition system.? Attempts have been made to correct errors. However, there may be uncorrected grammatical, spelling, and recognition errors present. Report Initialized date/time:? Madhav Champion MD? 06/10/221651 All 3 of patient's cardiac enzymes are found to be negative. Prior to going to the specialist employee labor relations the patient had a stress test and had an abnormal stress test he was then taken to the specialist employee labor relations. Please see the the above report. (2) Diabetes type 2, controlled: Qualifiers: Diabetes mellitus complication status: without complication Diabetes mellitus predatory animal exterminator insulin use: without predatory animal exterminator use Qualified Code(s): E11.9 - Type 2 diabetes mellitus without complications Code(s): E11.9 - Type 2 diabetes mellitus without complications Status: Chronic Assessment and Plan: Accu-Cheks AC and HS with sliding scale insulin. -I am going to hold his metformin in the event that the patient would have an abnormal stress test and he had to go to cardiac specialist employee labor relations. -check A1c if not performed in the last 3 months. -continue Januvia (3) Hypertension: Qualifiers: Hypertension type: essential hypertension Qualified Code(s): I10 - Essential (primary) hypertension Code(s): I10 - Essential (primary) hypertension Status: Chronic Assessment and Plan: -continue with quinapril and continue with daily BMPs. -continue with? bisoprolol with hydrochlorothiazid DS: Summary Hospital Course Reason for hospitalization: The patient came to the emergency room with complaints of chest pain. Hospital Course: This is a 71-year-old male patient who is very hard of hearing.? His daughter is at the bedside answering questions for me.? The patient has no prior history of her having any acid reflux.? The patient came in last night due to intermittent chest discomfort over the last 1-2 weeks the patient had discomfort the night before her that came on 1 hour after eating dinner.? The patient had a similar sensation when he walked out in the code and at the temperature change.? The patient also had a strong ache in his upper abdomen and moved upward.? The symptoms lasted about 5 minutes.? No radiation to shoulders are back the pain was alleviated temp belching and taking in acids.? He had no fever chills.? No nausea vomiting.? No diaphoresis.? No history of heart disease.? No history of any gallbladder symptoms.? He does not have a Daly sign.? Patient's troponins were negative x3.? The patient was getting a echocardiogram when I was in the room.? Cardiology has been consulted and has already seen th
--- NOTE | 2022-07-10 17:04 | PM.TDS ---
Transfer Discharge Sum: Prov Provider Date of admission: 06/09/22 23:40 Primary care physician: Bety Rollins, PA-C Admitting clinician: Miles Esqueda MD Consults: 06/10/22 Consult to Physician Routine Comment: Consulting Provider: Jad Amezquita Reason for consultation: Chest Pain/Balloon Pump Has provider been notified: Yes Receiving physician/facility: Transfer facilitated by Cardiology. DS: Admitting Diagnosis Discharge Date 06/10/22 Admitting Diagnosis Chest pain DS: Discharge Diagnosis Discharge Diagnosis Plan DS: Discharge Diagnosis Discharge Diagnosis (1) Chest pain: ?Code(s): R07.9 - Chest pain, unspecified ?Status:?Acute ?Assessment and Plan: The patient was taken to the cardiac catheterization lab please see cardiology cardiac catheterization note per Dr. Madhav Champion 1.? ? Right coronary dominant circulation with extensive 3 vessel coronary artery disease 2. ? subtotal ostial stenosis and subsequent 90-95% lesions in the large dominant RCA as described above.? The RPDA appears to be a good target for revascularization 3. ? mild eccentric distal left main stenosis 4. ? high-grade proximal LAD lesion of 99% followed by 90-95% stenosis at the origin of the diagonal branch and 90% stenosis in the diagonal itself 5. ? 1st OM branch which takes off as high ramus intermedius that has 99% stenosis. 6.? ? Mild inferior /diaphragmatic hypokinesia with overall normal left ventricular ejection fraction 7. ? given this patient's critical anatomy intra-aortic balloon counterpulsation pump was placed he will not be heparinized and taken to the ICU with balloon pump well plans are made for transfer for cardiothoracic surgery consultation ?Madhav Champion MD [facility] This dictation may have been done utilizing a voice recognition system.? Attempts have been made to correct errors. However, there may be uncorrected grammatical, spelling, and recognition errors present. Report Initialized date/time:? Madhav Champion MD? 06/10/221651 All 3 of patient's cardiac enzymes are found to be negative. Prior to going to the cath laboratory technician the patient had a stress test and had an abnormal stress test he was then taken to the cath laboratory technician.? Please see the the above report. (2) Diabetes type 2, controlled: ?Qualifiers: ?Diabetes mellitus complication status:?without complication??Diabetes mellitus care home insulin use:?without ferry terminal supervisor use? Qualified Code(s):?E11.9 - Type 2 diabetes mellitus without complications ?Code(s): E11.9 - Type 2 diabetes mellitus without complications ?Status:?Chronic ?Assessment and Plan: Accu-Cheks AC and HS with sliding scale insulin. -I am going to hold his metformin in the event that the patient would have an abnormal stress test and he had to go to cardiac cath laboratory technician. -check A1c if not performed in the last 3 months. -continue Januvia (3) Hypertension: ?Qualifiers: ?Hypertension type:?essential hypertension? Qualified Code(s):?I10 - Essential (primary) hypertension ?Code(s): I10 - Essential (primary) hypertension ?Status:?Chronic ?Assessment and Plan: -continue with quinapril and continue with daily BMPs. -continue with? bisoprolol with hydrochlorothiazid DS: Summary Hospital Course Reason for hospitalization: The patient came to the emergency room with complaints of chest pain.? Hospital Course: This is a 71-year-old male patient who is very hard of hearing.? His daughter is at the bedside answering questions for me.? The patient has no prior history of her having any acid reflux.? The patient came in last night due to intermittent chest discomfort over the last 1-2 weeks the patient had discomfort the night before her that came on 1 hour after eating dinner.? The patient had a similar sensation when he walked out in the code and at the temperature change.? The patient also had a strong ache in his up
== END 2022-06-10 23:00 | disposition home or self-care (01) ==
LOC: ANHED 23:44 → ANHIMU 06-10 10:36 → ANHICU 06-11 11:23 → ANHIMU 06-11 11:23
PROVIDERS: Specialist; Admitting Provider Internal Medicine; Emergency Provider Emergency Medicine; PCP Physician Assistant; Visit Provider Internal Medicine
PROC: 4A023N7 Measurement of Cardiac Sampling and Pressure, Left Heart, Percutaneous Approach (ICD-10-PCS; CPT 93452; principal; 2022-06-10 15:30)
DX: I25.10 Atherosclerotic heart disease of native coronary artery without angina pectoris (principal); R94.39 Abnormal result of other cardiovascular function study; R07.9 Chest pain, unspecified; R94.31 Abnormal electrocardiogram [ECG] [EKG]; I08.3 Combined rheumatic disorders of mitral, aortic and tricuspid valves; R10.10 Upper abdominal pain, unspecified; R12 Heartburn; E11.69 Type 2 diabetes mellitus with other specified complication; E78.5 Hyperlipidemia, unspecified; E11.59 Type 2 diabetes mellitus with other circulatory complications; I15.2 Hypertension secondary to endocrine disorders; Z83.3 Family history of diabetes mellitus; Z82.49 Family history of ischemic heart disease and other diseases of the circulatory system; R91.8 Other nonspecific abnormal finding of lung field; Z20.822 Contact with and (suspected) exposure to COVID-19; R00.1 Bradycardia, unspecified; I45.2 Bifascicular block; I27.20 Pulmonary hypertension, unspecified; Z85.038 Personal history of other malignant neoplasm of large intestine; Z90.49 Acquired absence of other specified parts of digestive tract; Z79.84 Long term (current) use of oral hypoglycemic drugs; Z87.891 Personal history of nicotine dependence; Z79.82 Long term (current) use of aspirin; Z79.899 Other long term (current) drug therapy
CPT/HCPCS: 33967; 36415; 71046; 78452; 80053; 82948; 83690; 84484; 85025; 85610; 85730; 93005; 93017; 93458; 96365; 96366; 96375; 99285; A9270; A9502; C1887; C1894; C8929; C9803; G0378; J1644; J2250; J3010; J7030; Q9957; U0003; U0005

== ENCOUNTER 2022-09-23 09:06 | Outpatient (CLI) | payer MEDICARE, SELFPAY ==
[2022-09-23 19:55] LABS: Alanine Aminotransferase 20 U/L (6-50); Alkaline Phosphatase 71 U/L (38-126); Anion Gap 3 mmol/L (8-16); Aspartate Amino Transferase 79 U/L (17-59); Bilirubin,Total 0.5 mg/dL (0.2-1.3); Blood Urea Nitrogen 17 mg/dL (9-20); Carbon Dioxide 33 mmol/L (22-30); Chloride 107 mmol/L (98-107); Estimated Glomerular Filt Rate > 60; Glucose 96 mg/dL (65-110); Potassium 3.9 mmol/L (3.4-5.0); Sodium 143 mmol/L (137-145)
[2022-09-23 20:20] LABS: Appearance Urine Cloudy (Clear); Bilirubin Urine Negative (Negative); Blood Urine Negative (Negative); Color Urine Yellow (Yellow); Glucose Urine UA Negative (Negative); Ketones Urine Negative (Negative); Leukocyte Esterase Ur 1+ LEU/UL (NEGATIVE); Nitrate Urine Negative (Negative); Protein Urine 2+ mg/dL (Negative); Specific Grav Ur >= 1.030 (1.001-1.035); Urobilinogen Urine 0.2 mg/dL (<2.0); pH Urine 5.5 (5.0-9.0)
[2022-09-23 20:21] LABS: Prostate Specific Antigen 0.4 ng/mL (< OR = 4.0)
[2022-09-23 20:23] LABS: Bacteria Urine 4+ /hpf; Calcium Oxalate Crystals Urine Present /hpf; Free T4 Free Thyroxine 1.37 ng/mL (0.78-2.19); Mucus Urine Heavy /lpf; RBC Urine 0-2 /hpf (0-2); Squamous Epithelial Cell Urine Rare /hpf (Few)
[2022-09-23 20:42] LABS: Creatinine Urine 167.7 mg/dL
[2022-09-23 20:43] LABS: Hematocrit 35.3 % (42.0-52.0); Mean Corpuscular HGB Conc 31.2 g/dl (32-36); Mean Corpuscular Volume 86.5 fl (80-100); Mean Platelet Volume 10.4 fl (7.4-10.4); Platelet Count Result 273 k/mm3 (150-375); Red Blood Count 4.08 M/mm3 (4.6-6.20); Red Cell Distribution Width 14.5 % (11.5-14.5); White Blood Count 6.3 K/mm3 (4.5-10.0)
[2022-09-23 20:55] LABS: Hemoglobin A1C 5.7 % (<5.7)
[2022-09-23 21:01] LABS: Add Urine Microscopic? YES
[2022-09-23 21:04] LABS: MALB Creatinine Ratio 143.5 mg/g (0-30); Microalbumin Urine Random 240.6 mg/L (0-16.7)
[2022-09-23 21:08] LABS: Total Cells Counted 100
[2022-09-23 21:09] LABS: Eosinophils Absolute Manual 0.06 K/mm3 (0.02-0.5); Eosinophils Percent Manual 1 % (0-4); Lymphocytes Percent Manual 35 % (18-44); Monocytes Absolute Manual 0.69 K/mm3 (0.1-0.90); Monocytes Percent Manual 11 % (3-9); Neutrophils Percent Manual 53 % (46-73); Platelet Estimate Adequate (Adequate)
[2022-09-23 21:10] LABS: Ovalocytes 1+ (NORMAL); Schistocytes None Seen (NORMAL)
[2022-09-23 21:12] LABS: Atypical Lymphocytes Present
== END 2022-09-23 09:07 | disposition home or self-care (01) ==
LOC: ANHGOSHLAB 09:09
PROVIDERS: PCP Physician Assistant; Visit Provider Physician Assistant
DX: E11.9 Type 2 diabetes mellitus without complications (principal); N39.0 Urinary tract infection, site not specified; Z79.899 Other long term (current) drug therapy; Z12.5 Encounter for screening for malignant neoplasm of prostate
CPT/HCPCS: 36415; 80048; 80076; 81001; 82043; 83036; 84153; 84439; 84443; 85025; 87077; 87086; 87186; G0103

== ENCOUNTER 2022-10-16 09:16 | Outpatient (CLI) | payer MEDICARE, SELFPAY ==
[2022-10-16 09:31] LABS: Basophils Percent Auto 0.4 % (0.2-1.2); Eosinophils Percent Auto 0.6 % (0-4.4); Hematocrit 36.6 % (42.0-52.0); Hemoglobin 11.7 g/dL (14.0-18.0); Immature Granulocyte Absolute 0.11 K/mm3 (0.00-0.031); Immature Granulocyte Percent A 2.1 % (0-0.5); Lymphocytes Percent Auto 20.7 % (18.3-44.2); Mean Corpuscular Hemoglobin 27.1 pg (26-34); Mean Corpuscular Volume 84.7 fl (80-100); Mean Platelet Volume 9.6 fl (7.4-10.4); Monocytes Absolute Auto 0.6 K/mm3 (0.1-0.6); Monocytes Percent Auto 10.4 % (2.6-8.5); Neutrophils Absolute Auto 3.5 K/mm3 (1.3-6.7); Neutrophils Percent Auto 65.8 % (45.5-73.1); Platelet Count Result 214 k/mm3 (150-375); Red Blood Count 4.32 M/mm3 (4.6-6.20); Red Cell Distribution Width 14.9 % (11.5-14.5); White Blood Count 5.3 K/mm3 (4.5-10.0)
[2022-10-16 11:07] LABS: Iron 39 ug/dL (49-181)
[2022-10-16 11:08] LABS: Alanine Aminotransferase 21 U/L (6-50); Albumin Level 4.7 g/dL (3.5-5.1); Alkaline Phosphatase 79 U/L (38-126); Anion Gap 7 mmol/L (8-16); Aspartate Amino Transferase 27 U/L (17-59); Bilirubin,Total 0.4 mg/dL (0.2-1.3); Blood Urea Nitrogen 24 mg/dL (9-20); Calcium 9.2 mg/dL (8.4-10.2); Carbon Dioxide 27 mmol/L (22-30); Chloride 105 mmol/L (98-107); Estimated Glomerular Filt Rate > 60; Glucose 117 mg/dL (65-110); Potassium 4.4 mmol/L (3.4-5.0); Sodium 139 mmol/L (137-145)
[2022-10-16 11:16] LABS: Percent Iron Saturation 11 % (20-50)
[2022-10-16 13:07] LABS: Carcinoembryonic Antigen < 0.3 ng/mL (0.0-3.0)
== END 2022-10-16 09:17 | disposition home or self-care (01) ==
LOC: ANHLAB 09:17
PROVIDERS: PCP Physician Assistant; Visit Provider Internal Medicine Hematology & Oncology
DX: D64.9 Anemia, unspecified (principal); C20 Malignant neoplasm of rectum
CPT/HCPCS: 36415; 80053; 82378; 82728; 83540; 83550; 85025

== ENCOUNTER 2022-11-26 09:45 | Outpatient (RCR) | payer MEDICARE, SELFPAY ==
[2022-09-08 09:00] VITALS: PULSE 70
== END 2022-11-26 11:14 | disposition home or self-care (01) ==
LOC: ANHCPREHAB 09:45
PROVIDERS: PCP Physician Assistant; Visit Provider Internal Medicine Cardiovascular Disease
DX: Z95.1 Presence of aortocoronary bypass graft (principal)
CPT/HCPCS: 93798

== ENCOUNTER 2023-03-25 08:45 | Outpatient (CLI) | payer MEDICARE, SELFPAY ==
[2023-03-25 08:59] LABS: Basophils Percent Auto 0.2 % (0.2-1.2); Eosinophils Percent Auto 0.4 % (0-4.4); Hematocrit 37.2 % (42.0-52.0); Hemoglobin 12.2 g/dL (14.0-18.0); Immature Granulocyte Absolute 0.27 K/mm3 (0.00-0.031); Lymphocytes Absolute Auto 1.21 K/mm3 (0.9-3.2); Lymphocytes Percent Auto 22.5 % (18.3-44.2); Mean Corpuscular HGB Conc 32.8 g/dl (32-36); Mean Corpuscular Hemoglobin 28.8 pg (26-34); Mean Corpuscular Volume 87.9 fl (80-100); Mean Platelet Volume 10.2 fl (7.4-10.4); Monocytes Absolute Auto 0.6 K/mm3 (0.1-0.6); Monocytes Percent Auto 10.6 % (2.6-8.5); Neutrophils Absolute Auto 3.3 K/mm3 (1.3-6.7); Neutrophils Percent Auto 61.3 % (45.5-73.1); Platelet Count Result 239 k/mm3 (150-375); Red Blood Count 4.23 M/mm3 (4.6-6.20); Red Cell Distribution Width 13.1 % (11.5-14.5); White Blood Count 5.4 K/mm3 (4.5-10.0)
[2023-03-25 10:39] LABS: Alanine Aminotransferase 20 U/L (6-50); Albumin Level 4.6 g/dL (3.5-5.1); Alkaline Phosphatase 64 U/L (38-126); Aspartate Amino Transferase 27 U/L (17-59); Bilirubin,Total 0.5 mg/dL (0.2-1.3); Cholesterol 131 mg/dL (0-200); HDL Direct 23 mg/dL; Triglycerides 94 mg/dL (<150)
[2023-03-25 10:43] LABS: Anion Gap 9 mmol/L (8-16); Blood Urea Nitrogen 19 mg/dL (9-20); Calcium 9.3 mg/dL (8.4-10.2); Carbon Dioxide 27 mmol/L (22-30); Chloride 104 mmol/L (98-107); Estimated Glomerular Filt Rate > 60; Glucose 112 mg/dL (65-110); Potassium 4.4 mmol/L (3.4-5.0); Sodium 140 mmol/L (137-145)
[2023-03-25 10:50] LABS: LDL Cholesterol Direct 79 mg/dL
[2023-03-25 11:09] LABS: Carcinoembryonic Antigen < 0.3 ng/mL (0.0-3.0)
[2023-03-25 12:16] LABS: Iron 71 ug/dL (49-181)
[2023-03-25 12:27] LABS: Percent Iron Saturation 18 % (20-50)
== END 2023-03-25 08:46 | disposition home or self-care (01) ==
LOC: ANHLAB 08:46
PROVIDERS: PCP Physician Assistant; Visit Provider Internal Medicine Hematology & Oncology
DX: D64.9 Anemia, unspecified (principal); C20 Malignant neoplasm of rectum; E11.9 Type 2 diabetes mellitus without complications; E78.5 Hyperlipidemia, unspecified; Z79.899 Other long term (current) drug therapy
CPT/HCPCS: 36415; 80048; 80061; 80076; 82378; 82728; 83036; 83540; 83550; 85025

== ENCOUNTER 2023-09-30 10:16 | Outpatient (CLI) | payer MEDICARE, SELFPAY ==
[2023-09-30 10:34] LABS: Basophils Percent Auto 0.2 % (0.2-1.2); Eosinophils Percent Auto 0.2 % (0-4.4); Hematocrit 31.2 % (42.0-52.0); Hemoglobin 9.9 g/dL (14.0-18.0); Immature Granulocyte Absolute 0.41 K/mm3 (0.00-0.031); Immature Granulocyte Percent A 4.1 % (0-0.5); Lymphocytes Absolute Auto 1.56 K/mm3 (0.9-3.2); Lymphocytes Percent Auto 15.5 % (18.3-44.2); Mean Corpuscular HGB Conc 31.7 g/dl (32-36); Mean Corpuscular Hemoglobin 26.6 pg (26-34); Mean Corpuscular Volume 83.9 fl (80-100); Monocytes Absolute Auto 0.8 K/mm3 (0.1-0.6); Monocytes Percent Auto 7.9 % (2.6-8.5); Neutrophils Absolute Auto 7.3 K/mm3 (1.3-6.7); Neutrophils Percent Auto 72.1 % (45.5-73.1); Platelet Count Result 345 k/mm3 (150-375); Red Blood Count 3.72 M/mm3 (4.6-6.20); Red Cell Distribution Width 13.6 % (11.5-14.5); White Blood Count 10.1 K/mm3 (4.5-10.0)
[2023-09-30 11:49] LABS: Alanine Aminotransferase 30 U/L (6-50); Albumin Level 3.9 g/dL (3.5-5.1); Alkaline Phosphatase 81 U/L (38-126); Anion Gap 9 mmol/L (8-16); Aspartate Amino Transferase 29 U/L (17-59); Bilirubin,Total 0.6 mg/dL (0.2-1.3); Blood Urea Nitrogen 33 mg/dL (9-20); Carbon Dioxide 26 mmol/L (22-30); Chloride 106 mmol/L (98-107); Estimated Glomerular Filt Rate 50; Glucose 153 mg/dL (65-110); Potassium 4.9 mmol/L (3.4-5.0); Sodium 141 mmol/L (137-145)
[2023-09-30 11:53] LABS: Iron 36 ug/dL (49-181)
[2023-09-30 12:04] LABS: Percent Iron Saturation 13 % (20-50)
[2023-09-30 12:22] LABS: Carcinoembryonic Antigen < 0.3 ng/mL (0.0-3.0)
== END 2023-09-30 10:17 | disposition home or self-care (01) ==
PROVIDERS: PCP Physician Assistant; Visit Provider Internal Medicine Hematology & Oncology
DX: C20 Malignant neoplasm of rectum (principal); D64.9 Anemia, unspecified
CPT/HCPCS: 36415; 80053; 82378; 82728; 83540; 83550; 85025

== ENCOUNTER 2023-10-13 06:37 | Outpatient (CLI) | payer MEDICARE, SELFPAY ==
--- NOTE | ~2023-10-13 | CT_ITS ---
CT of the Abdomen and Pelvis: Indication: Rectal carcinoma Technique: 2.5 mm axial scans were obtained through the abdomen and pelvis following intravenous adm inistration of 100 cc of Omnipaque 350. Dose reduction technique was used on this scan by utilizing a utomated exposure control and iterative reconstruction technique. The dose-length product (DLP) was 5 71.86 mGy-cm. COMPARISON: 08/13/2021 Findings: Scans through the lung bases are unremarkable. The liver, spleen, pancreas, gallbladder, adrenals and right kidney are within normal limits. There i s moderate left hydronephrosis, involving the entire length of the ureter, new from prior exam. There are atherosclerotic calcifications of the aorta. No lymphadenopathy. No bowel obstruction or bowel wall thickening. Distal rectal anastomosis noted. Images through the pelvis were performed. Urinary bladder is partially distended, with probable bladd er wall trabeculation and small right-sided diverticula. No pelvic mass evident otherwise. No ascites . Impression: No evidence of recurrent malignancy or metastatic disease. New moderate left hydroureteronephrosis with distended urinary bladder, bladder wall trabeculation, a nd small bladder diverticula. Reviewed, dictated and finalized at location . [facility] CATH TECHNICIAN Impression: No evidence of recurrent malignancy or metastatic disease. New moderate left hydroureteronephrosis with distended urinary bladder, bladder wall trabeculation, and small bladder diverticula.
== END 2023-10-13 06:38 | disposition home or self-care (01) ==
PROVIDERS: PCP Physician Assistant; Visit Provider Internal Medicine Hematology & Oncology
DX: C20 Malignant neoplasm of rectum (principal); N13.30 Unspecified hydronephrosis; N32.3 Diverticulum of bladder
CPT/HCPCS: 74177; Q9967

== ENCOUNTER 2023-11-03 08:35 | Outpatient (CLI) | payer MEDICARE, SELFPAY ==
[2023-11-03 11:50] LABS: Anion Gap 8 mmol/L (8-16); Bilirubin,Total 0.6 mg/dL (0.2-1.3); Blood Urea Nitrogen 28 mg/dL (9-20); Calcium 9.2 mg/dL (8.4-10.2); Carbon Dioxide 26 mmol/L (22-30); Chloride 107 mmol/L (98-107); Estimated Glomerular Filt Rate 59; Glucose 106 mg/dL (65-110); Phosphorus 3.3 mg/dL (2.5-4.5); Potassium 4.6 mmol/L (3.4-5.0); Sodium 141 mmol/L (137-145)
[2023-11-03 11:51] LABS: Alanine Aminotransferase 20 U/L (6-50); Albumin Level 3.8 g/dL (3.5-5.1); Alkaline Phosphatase 76 U/L (38-126); Aspartate Amino Transferase 35 U/L (17-59); Cholesterol 134 mg/dL (0-200); HDL Direct 27 mg/dL; Triglycerides 100 mg/dL (<150)
[2023-11-03 12:02] LABS: LDL Cholesterol Direct 81 mg/dL
[2023-11-03 12:07] LABS: Appearance Urine Cloudy (Clear); Bacteria Urine 4+ /hpf; Bilirubin Urine Negative (Negative); Blood Urine Trace (Negative); Color Urine Yellow (Yellow); Glucose Urine UA Negative (Negative); Ketones Urine Negative (Negative); Leukocyte Esterase Ur 3+ LEU/UL (Negative); Nitrate Urine Negative (Negative); Non Pathogenic Casts 0-2; Protein Urine Negative (Negative); RBC Urine 0-2 /hpf (0-2); Squamous Epithelial Cell Urine None Seen /hpf (Few); Urobilinogen Urine 0.2 mg/dL (<2.0); WBC Urine >100 /hpf (0-3); pH Urine 5.5 (5.0-9.0)
[2023-11-03 12:15] LABS: Add Urine Microscopic? YES
[2023-11-03 12:20] LABS: Prostate Specific Antigen 0.1 ng/mL (< OR = 4.0)
[2023-11-03 12:34] LABS: Hemoglobin A1C 5.6 % (<5.7)
[2023-11-03 12:56] LABS: Folic Acid 19.6 ng/mL (2.76->20)
[2023-11-03 13:17] LABS: Free T4 Free Thyroxine 1.28 ng/mL (0.78-2.19)
== END 2023-11-03 08:36 | disposition home or self-care (01) ==
PROVIDERS: PCP Physician Assistant; Visit Provider Physician Assistant
DX: Z12.5 Encounter for screening for malignant neoplasm of prostate (principal); N13.39 Other hydronephrosis; E11.9 Type 2 diabetes mellitus without complications; E78.5 Hyperlipidemia, unspecified; Z79.899 Other long term (current) drug therapy; Z13.29 Encounter for screening for other suspected endocrine disorder
CPT/HCPCS: 36415; 80053; 80061; 82607; 82746; 83036; 84100; 84153; 84439; 84443; 87077; 87086; 87088; 87186; G0103

== ENCOUNTER 2023-12-02 11:51 | Outpatient (CLI) | payer MEDICARE, SELFPAY ==
[2023-12-02 12:07] LABS: Basophils Percent Auto 0.2 % (0.2-1.2); Eosinophils Percent Auto 0.4 % (0-4.4); Hematocrit 33.4 % (42.0-52.0); Hemoglobin 10.5 g/dL (14.0-18.0); Immature Granulocyte Absolute 0.14 K/mm3 (0.00-0.031); Immature Granulocyte Percent A 2.6 % (0-0.5); Lymphocytes Absolute Auto 1.07 K/mm3 (0.9-3.2); Lymphocytes Percent Auto 20.2 % (18.3-44.2); Mean Corpuscular HGB Conc 31.4 g/dl (32-36); Mean Corpuscular Hemoglobin 28.5 pg (26-34); Mean Corpuscular Volume 90.8 fl (80-100); Mean Platelet Volume 10.6 fl (7.4-10.4); Monocytes Absolute Auto 0.5 K/mm3 (0.1-0.6); Monocytes Percent Auto 9.8 % (2.6-8.5); Neutrophils Absolute Auto 3.5 K/mm3 (1.3-6.7); Neutrophils Percent Auto 66.8 % (45.5-73.1); Platelet Count Result 201 k/mm3 (150-375); Red Blood Count 3.68 M/mm3 (4.6-6.20); Red Cell Distribution Width 17.8 % (11.5-14.5); White Blood Count 5.3 K/mm3 (4.5-10.0)
[2023-12-02 12:43] LABS: Alanine Aminotransferase 18 U/L (6-50); Albumin Level 4.5 g/dL (3.5-5.1); Alkaline Phosphatase 75 U/L (38-126); Anion Gap 10 mmol/L (4-12); Aspartate Amino Transferase 34 U/L (17-59); Bilirubin,Total 0.6 mg/dL (0.2-1.3); Blood Urea Nitrogen 24 mg/dL (9-20); Calcium 9.9 mg/dL (8.4-10.2); Carbon Dioxide 23 mmol/L (22-30); Chloride 108 mmol/L (98-107); Estimated Glomerular Filt Rate 59; Glucose 115 mg/dL (65-110); Potassium 4.7 mmol/L (3.4-5.0); Sodium 141 mmol/L (137-145)
[2023-12-02 13:13] LABS: Carcinoembryonic Antigen < 0.3 ng/mL (0.0-3.0)
[2023-12-02 19:47] LABS: Iron 45 ug/dL (49-181)
[2023-12-02 20:01] LABS: Percent Iron Saturation 15 % (20-50)
== END 2023-12-02 11:52 | disposition home or self-care (01) ==
LOC: ANHLAB 11:53
PROVIDERS: PCP Physician Assistant; Visit Provider Internal Medicine Hematology & Oncology
DX: C20 Malignant neoplasm of rectum (principal); D64.9 Anemia, unspecified
CPT/HCPCS: 36415; 80053; 82378; 82728; 83540; 83550; 85025

== ENCOUNTER 2023-12-08 14:28 | Outpatient (CLI) | payer MEDICARE, SELFPAY ==
--- NOTE | ~2023-12-08 | US_ITS ---
EXAMINATION: US carotid duplex BI DATE: 12/08/2023 15:02 INDICATION: Left carotid bruit TECHNIQUE: Grayscale, color Doppler, and pulsed Doppler images of the cervical carotid arteries were obtained. The degree of vessel stenosis is placed in one of the following categories: normal, <50%, 5 0-69%, >=70% but less than near-occlusion, near-occlusion, or total occlusion. Note that percent sten osis relative to normal distal artery lumen diameter is indirectly measured from velocity measurement s as described by Vini, et al. Radiology 2003; 229:340-346. Notes: Normal: Peak systolic velocity <125 centimeters/sec and no plaque <50%. Peak systolic velocity <125 ( EDV <40; ICA/CCA PSV ratio <2.0; used these factors only a tandem lesions or low cardiac output or co ntralateral disease) 50-69 %: PSV 125-230 (EDV 40-100; ratio 2-4) >= 70% but less than near occlusion: PSV greater than 230 (EDV > 100; ratio> 4.0) Near Occlusion: PSV that is variable; markedly narrowed lumen Occlusion: Absent flow on color/spectral Doppler and no lumen on nelson scale. COMPARISON: None. FINDINGS: RIGHT: The right common carotid artery (CCA) peak systolic velocity (PSV) is 70 cm/s. The right internal car otid artery (ICA) PSV is 121 cm/s. The right ICA end-diastolic velocity (EDV) is 18 cm/s. The right I CA/CCA PSV ratio is 1.7. The external carotid artery (ECA) PSV is 111 cm/s. There is antegrade flow i n the right vertebral artery. LEFT: The left CCA PSV is 79 cm/s. The left ICA PSV is 94 cm/s. The left ICA EDV is 23 cm/s. The left ICA/C CA PSV ratio is 1.2. The ECA PSV is 202 cm/s. There is antegrade flow in the left vertebral artery. IMPRESSION: 1. Less than 50% stenosis in the right internal carotid artery by sonographic criteria. 2. Less than 50% stenosis in the left internal carotid artery by sonographic criteria. Reviewed, dictated and finalized at location B. IMPRESSION: 1. Less than 50% stenosis in the right internal carotid artery by sonographic c prachi. 2. Less than 50% stenosis in the left internal carotid artery by sonographic cr rpiya.
== END 2023-12-08 14:29 | disposition home or self-care (01) ==
LOC: ANHIMG 14:30
PROVIDERS: PCP Physician Assistant; Visit Provider Internal Medicine Cardiovascular Disease
DX: R09.89 Other specified symptoms and signs involving the circulatory and respiratory systems (principal); I65.23 Occlusion and stenosis of bilateral carotid arteries
CPT/HCPCS: 93880

== ENCOUNTER 2024-02-08 00:27 | Day surgery (SDC) | payer MEDICARE, SELFPAY ==
[2024-01-26 10:37] VITALS: BMI 24.4
[2024-02-08 09:28] VITALS: BP 144/73; PULSE 62; RESP 16; TEMP 36.2; O2SAT 100; BMI 24.6
[2024-02-08] MEDS: LACTATED RINGERS 1,000 ML 150 ML IV CONT (09:50)
[2024-02-08 09:51] LABS: Glucose Point of Care 130 mg/dl (65-105)
--- NOTE | 2024-02-08 09:58 | WPDANESEPPF ---
Anes - Initial Pre Proc Eval Procedure: Operation Date: 02/08/24 11:00 Proposed Procedures p Colonoscopy - Nemesio Moore MD Date/Time: 02/08/24 09:58 Surgeon: Nemesio Moore MD Pre Op Diagnosis: Hx. colon CA Patient Data Age: 73 Gender: M Height: 1.8 m Weight: 80.1 kg Last Vital Signs Temp 36.2 C L 02/08/24 09:28 Pulse 62 02/08/24 09:28 Resp 16 02/08/24 09:28 BP 144/73 H 02/08/24 09:28 Pulse Ox 100 02/08/24 09:28 O2 Del Method Room Air 02/08/24 09:28 Allergies Allergy/AdvReac Type Severity Reaction Status Date / Time Penicillins Allergy Intermediate RASH/Skin Verified 02/08/24 09:36 Reaction procaine Allergy Intermediate Rash/TISSUE Verified 02/08/24 09:36 IRRITATION Sulfa (Sulfonamide Allergy Intermediate Skin Verified 02/08/24 09:36 Antibiotics) Reaction/RASH erythromycin base AdvReac Intermediate Gastrointestinal Verified 02/08/24 09:36 Upset Home Medications Medication Instructions Recorded Confirmed Type atorvastatin 40 mg tablet 40 mg PO DAILY 09/09/20 02/08/24 History metformin 1,000 mg tablet 1,000 mg PO BID 09/09/20 02/08/24 History sitagliptin phosphate 100 mg 100 mg PO QAM 09/09/20 02/08/24 History tablet (Januvia) [id number] 300 mcg-K 60 1 tablet PO DAILY 10/22/20 02/08/24 History mcg-lycop 600 mcg-lutein 300 mcg tablet (Centrum Silver Ultra Men's) aspirin 81 mg tablet,delayed 81 mg PO DAILY 06/10/22 02/08/24 History release (Adult Low Dose Aspirin) metoprolol tartrate 25 mg tablet 25 mg PO BID 09/08/22 02/08/24 History finasteride 5 mg tablet 5 mg PO DAILY 10/28/23 02/08/24 History tamsulosin 0.4 mg capsule 0.4 mg PO HS 10/28/23 02/08/24 History enalapril maleate 20 mg tablet 20 mg PO BID 01/26/24 02/08/24 History Laboratory Tests 02/08/24 09:43 POC Capillary Glucose 130 H mg/dl (65-105) Patient hx anesthesia problems: none Family hx anesthesia problems: none Results Review: All pre-operative results and documents have been reviewed as part of the pre-operative evaluation. [facility] Past Medical History Medical History Colon cancer screening Colon carcinoma Diabetes type 2, controlled Hyperlipidemia Hypertension Surgical History Surgical History H/O ileostomy 11/26 Takedown of ileostomy History of appendectomy History of colon resection 10/30/20 . Hand assisted laparoscopic low anterior resection with low pelvic anastomosis, with loop ileostomy, Laparoscopic mobilization of splenic flexure History of colonoscopy History of eye surgery Family History Family History Father Dementia Diverticulitis Cerebrovascular accident Mother Diabetes mellitus Dementia Heart disease Pulmonary disease Sibling Cancer High cholesterol Hypertension Social History Social History Social History: The patient lives home alone. He has 2 biological children and 1 stepchild. He is . He rarely drink in the past. 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 His daughter Monisha Steel is his durable power booth cleaner for healthcare. The patient does not use any tobacco, marijuana, or other illicit substances. Code status full code Smoking status: Never smoker Tobacco type: cigarettes Second hand tobacco smoke exposure: No Additional smoking assessment comments: had an occasional cigar 20 years ago Alcohol intake: current Drinks per week: 1 Alcohol use details: RARELY DRANK IN PAST Substance use: never Substance use type: does not use Lack of Transportation: No Lack of Food: Never True Current Housing: I Have Housing Concerned About Future Housing: No Difficulty Paying Gas/Electric Bi
--- NOTE | 2024-02-08 11:21 | PM.HPGS ---
History of Present Illness History of Present Illness Consent: Risks, benefits, and alternatives have been discussed and questions answered. Patient agrees to proceed with procedure. Chief complaint: Hx. colon CA Narrative: Everette Rosario is a 73 year old male here for colonoscopy, last one 2021, he had rectal cancer s/p Hand assisted laparoscopic low anterior resection in 2020. Review of Systems Review of Systems: All systems reviewed & are unremarkable except as noted in HPI and below PMFSH Past Medical History Medical History Colon cancer screening Colon carcinoma Diabetes type 2, controlled Hyperlipidemia Hypertension Surgical History Surgical History (Updated 02/08/24 @ 11:22 by Nemesio Moore MD) H/O ileostomy 11/26 Takedown of ileostomy History of appendectomy History of colon resection 10/30/20 . Hand assisted laparoscopic low anterior resection with low pelvic anastomosis, with loop ileostomy, Laparoscopic mobilization of splenic flexure History of colonoscopy History of eye surgery Family History Family History Father Dementia Diverticulitis Cerebrovascular accident Mother Diabetes mellitus Dementia Heart disease Pulmonary disease Sibling Cancer High cholesterol Hypertension Social History Social History Social History: The patient lives home alone. He has 2 biological children and 1 stepchild. He is . He rarely drink in the past. 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 His daughter Monisha Steel is his durable power exchange operator for healthcare. The patient does not use any tobacco, marijuana, or other illicit substances. Code status full code Smoking status: Never smoker Tobacco type: cigarettes Second hand tobacco smoke exposure: No Additional smoking assessment comments: had an occasional cigar 20 years ago Alcohol intake: current Drinks per week: 1 Alcohol use details: RARELY DRANK IN PAST Substance use: never Substance use type: does not use Lack of Transportation: No Lack of Food: Never True Current Housing: I Have Housing Concerned About Future Housing: No Difficulty Paying Gas/Electric Bills: No Difficulty Paying for Meds: No Currently Unemployed: No Education: Master's Degree or Higher Difficulty w/ Childcare or Family Care: No Living arrangements: with family Occupation/Education: occupation 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 Gender identity (if verbalized by the patient): Male Spiritual care concerns: No Meds Home Medications and Allergies Home Medications Medication Instructions Recorded Confirmed Type atorvastatin 40 mg tablet 40 mg PO DAILY 09/09/20 02/08/24 History metformin 1,000 mg tablet 1,000 mg PO BID 09/09/20 02/08/24 History sitagliptin phosphate 100 mg 100 mg PO QAM 09/09/20 02/08/24 History tablet (Januvia) [id number] 300 mcg-K 60 1 tablet PO DAILY 10/22/20 02/08/24 History mcg-lycop 600 mcg-lutein 300 mcg tablet (Centrum Silver Ultra Men's) aspirin 81 mg tablet,delayed 81 mg PO DAILY 06/10/22 02/08/24 History release (Adult Low Dose Aspirin) metoprolol tartrate 25 mg tablet 25 mg PO BID 09/08/22 02/08/24 History finasteride 5 mg tablet 5 mg PO DAILY 10/28/23 02/08/24 History tamsulosin 0.4 mg capsule 0.4 mg PO HS 10/28/23 02/08/24 History enalapril maleate 20 mg tablet 20 mg PO BID 01/26/24 02/08/24 History Allergies Allergy/AdvReac Type Severity Reaction Status Date / Time Penicillins Allergy Intermediate RASH/Skin Verified 02/08/24 09:36 Reaction procaine Allergy Intermediate Rash/TISSUE Verified 02/08/24 09:36 IRRITATION Sulfa (Sulfonamide Allergy Intermediate Skin Verified 02/08/24 09:36 Antibio
[2024-02-08 11:39] VITALS: BP 117/59; PULSE 55; RESP 20; O2SAT 100
[2024-02-08 11:49] VITALS: BP 128/61; PULSE 54; RESP 20; O2SAT 100
[2024-02-08 11:59] VITALS: BP 139/65; PULSE 56; RESP 20; O2SAT 100
== END 2024-02-08 12:29 | disposition home or self-care (01) ==
PROVIDERS: PCP Physician Assistant; Visit Provider Internal Medicine Gastroenterology
PROC: 0DJD8ZZ Inspection of Lower Intestinal Tract, Via Natural or Artificial Opening Endoscopic (ICD-10-PCS; CPT 45378; principal; 2024-02-08 11:00)
DX: Z08 Encounter for follow-up examination after completed treatment for malignant neoplasm (principal); K57.30 Diverticulosis of large intestine without perforation or abscess without bleeding; Z98.0 Intestinal bypass and anastomosis status; Z90.49 Acquired absence of other specified parts of digestive tract; Z85.048 Personal history of other malignant neoplasm of rectum, rectosigmoid junction, and anus; Z79.84 Long term (current) use of oral hypoglycemic drugs; Z79.82 Long term (current) use of aspirin; I10 Essential (primary) hypertension; E11.9 Type 2 diabetes mellitus without complications; E78.5 Hyperlipidemia, unspecified
CPT/HCPCS: 45378; 82948; J1596; J2704; J7120

== ENCOUNTER 2024-04-12 10:49 | Outpatient (CLI) | payer MEDICARE, SELFPAY ==
[2024-04-12 13:10] LABS: Basophils Percent Auto 0.2 % (0.2-1.2); Eosinophils Percent Auto 0.2 % (0-4.4); Hemoglobin 11.7 g/dL (14.0-18.0); Immature Granulocyte Absolute 0.18 K/mm3 (0.00-0.031); Immature Granulocyte Percent A 1.9 % (0-0.5); Lymphocytes Absolute Auto 1.35 K/mm3 (0.9-3.2); Lymphocytes Percent Auto 14.5 % (18.3-44.2); Mean Corpuscular HGB Conc 32.5 g/dl (32-36); Mean Corpuscular Hemoglobin 30.5 pg (26-34); Mean Corpuscular Volume 93.8 fl (80-100); Mean Platelet Volume 10.8 fl (7.4-10.4); Monocytes Absolute Auto 0.9 K/mm3 (0.1-0.6); Monocytes Percent Auto 9.6 % (2.6-8.5); Neutrophils Absolute Auto 6.9 K/mm3 (1.3-6.7); Neutrophils Percent Auto 73.6 % (45.5-73.1); Platelet Count Result 237 k/mm3 (150-375); Red Blood Count 3.84 M/mm3 (4.6-6.20); Red Cell Distribution Width 13.9 % (11.5-14.5); White Blood Count 9.3 K/mm3 (4.5-10.0)
[2024-04-12 13:40] LABS: Microalbumin Urine Random 100.3 mg/L (0-16.7)
[2024-04-12 13:43] LABS: Creatinine Urine 52.3 mg/dL; MALB Creatinine Ratio 191.8 mg/g (0-30)
[2024-04-12 14:29] LABS: Alanine Aminotransferase 21 U/L (6-50); Albumin Level 4.4 g/dL (3.5-5.1); Alkaline Phosphatase 71 U/L (38-126); Anion Gap 9 mmol/L (4-12); Aspartate Amino Transferase 46 U/L (17-59); Bilirubin,Total 0.8 mg/dL (0.2-1.3); Blood Urea Nitrogen 24 mg/dL (9-20); Calcium 9.7 mg/dL (8.4-10.2); Carbon Dioxide 27 mmol/L (22-30); Chloride 104 mmol/L (98-107); Cholesterol 127 mg/dL (0-200); Estimated Glomerular Filt Rate 59; Glucose 105 mg/dL (65-110); HDL Direct 33 mg/dL; Potassium 4.5 mmol/L (3.4-5.0); Sodium 140 mmol/L (137-145); Triglycerides 115 mg/dL (<150)
[2024-04-12 14:40] LABS: LDL Cholesterol Direct 68 mg/dL
[2024-04-12 14:40] LABS: Hemoglobin A1C 5.8 % (<5.7)
== END 2024-04-12 10:50 | disposition home or self-care (01) ==
PROVIDERS: PCP Physician Assistant; Visit Provider Physician Assistant
DX: E11.9 Type 2 diabetes mellitus without complications (principal); Z79.899 Other long term (current) drug therapy
CPT/HCPCS: 36415; 80053; 80061; 82043; 82248; 83036; 85025

== ENCOUNTER 2024-05-11 11:08 | Outpatient (CLI) | payer MEDICARE, SELFPAY ==
--- NOTE | ~2024-05-11 | XR_ITS ---
Left foot Technique: AP, oblique, and lateral views were obtained. Clinical History: Great toe pain Findings: Questionable focal nondisplaced fracture the distal tuft of the first distal phalanx. Laporte us alignment is anatomic. There is minimal degenerative change of the first MTP joint. Soft tissues a re unremarkable. Impression: Questionable nondisplaced fracture of the distal doe of the first distal phalanx. Reviewed, dictated and finalized at location M. Impression: Questionable nondisplaced fracture of the distal doe of the first distal phal anx.
== END 2024-05-11 11:09 | disposition home or self-care (01) ==
PROVIDERS: PCP Physician Assistant; Visit Provider Physician Assistant
DX: S99.922A Unspecified injury of left foot, initial encounter (principal); W22.03XA Walked into furniture, initial encounter
CPT/HCPCS: 73630

== ENCOUNTER 2024-07-03 10:16 | Outpatient (CLI) | payer MEDICARE, SELFPAY ==
--- NOTE | ~2024-07-03 | US_ITS ---
EXAMINATION: US retroperitoneal comp DATE: 07/03/2024 10:35 INDICATION: Unspecified hydronephrosis TECHNIQUE: Multiple ultrasound grayscale images of the kidneys were obtained. COMPARISON: CT dated 10/13/2023 FINDINGS: The right kidney measures 10.1 x 4.8 x 5.5 cm. The left kidney measures 10.5 x 6.1 x 5.4 cm. The kidn eys demonstrate normal echogenicity. 1.5 cm anechoic cyst at the left kidney. There is no hydronephro sis in either kidney. No stones identified. There is diffuse bladder wall irregularity with trabecul ation and several peripheral diverticula. There is a region of more focal bladder wall thickening how ever this appears to represent a bandlike fold of the patulous and incompletely distended bladder. IMPRESSION: 1. 1.5 cm left renal cyst. Otherwise normal kidneys without hydronephrosis. 2. Bladder wall irregularity which appears to represent combination trabeculation and small diverticu la as seen on prior CT with bandlike region of more focal wall thickening likely representing a fold in the wall of a patulous but incompletely distended bladder. Malignancy considered significantly les s likely however would correlate with urinalysis and could consider further evaluation with cystoscop y as clinically indicated. Reviewed, dictated and finalized at location B. [facility] IMPRESSION: 1. 1.5 cm left renal cyst. Otherwise normal kidneys without hydronephrosis. 2. Bladder wall irregularity which appears to represent combination trabeculati on and small diverticula as seen on prior CT with bandlike region of more focal wall thickening likely representing a fold in the wall of a patulous but incom pletely distended bladder. Malignancy considered significantly less likely lópez dayami would correlate with urinalysis and could consider further evaluation with cystoscopy as clinically indicated.
== END 2024-07-03 10:17 | disposition home or self-care (01) ==
LOC: MICIMG 10:18
PROVIDERS: PCP Urology; Visit Provider Urology
DX: N28.1 Cyst of kidney, acquired (principal); N32.89 Other specified disorders of bladder; N13.30 Unspecified hydronephrosis
CPT/HCPCS: 76770

== ENCOUNTER 2024-07-27 10:14 | Outpatient (CLI) | payer MEDICARE, SELFPAY ==
[2024-07-27 10:36] LABS: Basophils Percent Auto 0.1 % (0.2-1.2); Eosinophils Percent Auto 0.3 % (0-4.4); Hematocrit 37.1 % (42.0-52.0); Hemoglobin 12.1 g/dL (14.0-18.0); Immature Granulocyte Absolute 0.17 K/mm3 (0.00-0.031); Immature Granulocyte Percent A 2.4 % (0-0.5); Lymphocytes Absolute Auto 1.57 K/mm3 (0.9-3.2); Lymphocytes Percent Auto 22.3 % (18.3-44.2); Mean Corpuscular HGB Conc 32.6 g/dl (32-36); Mean Corpuscular Hemoglobin 30.4 pg (26-34); Mean Corpuscular Volume 93.2 fl (80-100); Mean Platelet Volume 9.8 fl (7.4-10.4); Monocytes Absolute Auto 0.7 K/mm3 (0.1-0.6); Monocytes Percent Auto 10.5 % (2.6-8.5); Neutrophils Absolute Auto 4.5 K/mm3 (1.3-6.7); Neutrophils Percent Auto 64.4 % (45.5-73.1); Platelet Count Result 206 k/mm3 (150-375); Red Blood Count 3.98 M/mm3 (4.6-6.20); Red Cell Distribution Width 12.2 % (11.5-14.5)
[2024-07-27 14:01] LABS: Alanine Aminotransferase 21 U/L (6-50); Albumin Level 4.2 g/dL (3.5-5.1); Alkaline Phosphatase 67 U/L (38-126); Anion Gap 6 mmol/L (4-12); Aspartate Amino Transferase 26 U/L (17-59); Bilirubin,Total 0.4 mg/dL (0.2-1.3); Blood Urea Nitrogen 29 mg/dL (9-20); Calcium 9.3 mg/dL (8.4-10.2); Carbon Dioxide 26 mmol/L (22-30); Chloride 107 mmol/L (98-107); Estimated Glomerular Filt Rate 59; Glucose 113 mg/dL (65-110); Potassium 4.4 mmol/L (3.4-5.0); Sodium 139 mmol/L (137-145)
[2024-07-27 14:23] LABS: Iron 91 ug/dL (49-181)
[2024-07-27 14:28] LABS: Carcinoembryonic Antigen 0.4 ng/mL (0.0-3.0)
[2024-07-27 14:32] LABS: Percent Iron Saturation 30 % (20-50)
== END 2024-07-27 10:15 | disposition home or self-care (01) ==
PROVIDERS: PCP Urology; Visit Provider Internal Medicine Hematology & Oncology
DX: D64.9 Anemia, unspecified (principal); C20 Malignant neoplasm of rectum
CPT/HCPCS: 36415; 80053; 82378; 82728; 83540; 83550; 85025

== ENCOUNTER 2024-10-17 09:10 | Outpatient (CLI) | payer MEDICARE, SELFPAY ==
--- OUTSIDE RECORDS SUMMARY | 2024-10-17 09:56 | XMS_ITS | Data Portability ---
Author Organization [facility] [employer], Main Office Address [address] [place] [address] Assessment Encounter Date Assessment Date Assessment LastModified by Organization Details LastModified Time 03/19/2023 03/19/2023 PSA normal sep 2022 CBC and iron followed by dr. bishop. [email or web address] Not available 03/19/2023 12:19:20 Plan of Treatment Reminders Order Date Submit Date Provider Last Modified By Organization Details Last Modified Time Details Appointments None recorded. Lab HbA1c (hemoglobi n A1c), blood 2022 023 TATO Not available 3 12:43:36 hepatic function panel, serum 2022 023 [email or web address] Not available 3 15:13:52 BMP, serum or plasma 2022 023 [email or web address] Not available 3 15:14:02 lipid panel, serum 2022 023 [email or web address] Not available 3 15:13:44 Referral None recorded. Procedures None recorded. Surgeries None recorded. Imaging None recorded. Medication Orders None recorded. Patient TargetsNo targets recorded. Patient InstructionsNo instructions recorded. Reason for Referral None Reported. Results Created Date Observation Date Name Description Value Unit Range Abnormal Flag Note LastModifiedBy Organization Detail LastModifiedTime 08/13/2008/13/2021 CT, abdom en + pelvi s, w/ contr ast No observ ation record ed. [id number] [facility] (Imaging) [address], [place], [address], 10/21/2022 06:09:49 11/20/19 22 11/19/2021 colon oscop y proce dure (PROC ) No observ ation record ed. MIGRATION. Nemesio gamboa MD [address] [address] [address], [place], [address], 10/21/2022 06:09:49 06/11/20 22 06/09/2022 XR, chest No observ ation record ed. MIGRATION. [facility]) [address] [place] [address], [place], [address], 10/21/2022 06:09:49 06/22/20 22 06/10/2022 nucle ar stres s test No observ ation record ed. MIGRATION. [address] [place] [address]) [address] [place] [address], [place], [address], 10/21/2022 06:09:49 06/29/20 22 06/10/2022 cardi ac stres s test No observ ation record ed. MIGRATION. [address] [facility] [place], [address], 10/21/2022 06:09:49 06/29/20 22 06/10/2022 US, echoc ardio gram, trans thora cic, compl ete, w/ color flow No observ ation record ed. MIGRATION. [address] [facility] [place], [address], 10/21/2022 06:09:49 08/27/19 23 08/05/2022 US, echoc ardio gram, trans thora cic, compl ete, w/ color flow No observ ation record ed. MIGRATION. [facility] [address], [place], [address], 10/21/2022 06:09:49 10/13/19 24 10/13/2023 CT, abdom en + pelvi s, w/o contr ast No observ ation record ed. [email or web address] [place] [address] [place] [address] [place], [address], 11/25/2023 11:29:06 Result Notes None recorded. Problems Name Problem SNOMED Code Status Onset Date Resolution Date Notes Provider Name and Address Organization Details Recorded Time Benign essential hypertensi on 2407773 Active 2021 Not Available [facility] 3 06:02:38 Recurrent urinary tract infection 664863384 Active 2021 Not Available [facility] 3 06:02:38 Long-term drug therapy Active 2021 Not Available [facility] 3 06:02:38 Seasonal allergic rhinitis 768547016 Active 2021 Not Available [facility] 3 06:02:39 Hypertensi ve disorder 31150337 Active 2019 Not Available [facility] 3 06:02:39 History of malignant neoplasm of rectum 391489582 Active 2021 Not Available [facility] 3 06:02:39 Acute urinary tract infection 460917824 Active 2021 Not Available [facility] 3 06:02:39 Type 2 diabetes mellitus 23193729 Active 2019 Not Available [facility] 3 06:02:39 Coronary atheroscle rosis 901827589 Active 2022 Not Available [facility] 3 06:02:39 Well controlled type 2 diabetes mellitus 250604214 Active 2021 Not Available [facility] 3 06:02:39 Screening for malignant neoplasm of prostate Active 2021 Not Available [facility] 3 06:02:39 Hyperlipid emia 91965141 Active 2021 Not Available [facility] 3 06:02:39 Hyperlipid emia 01165889 Completed 201905/08/2020 Not Available [facility] 3 06:02:39 Urinary tract infectious disease 34341207 Active 2021 Not Available [facility] 3 06:02:40 Notes:COVID-19 pos 08/31/21 Problem Notes None recorded. Procedures Surgical History Date Name Laterality Status Provider Name and Address Organization Details Recorded Time 09/18/19 21 Colonoscopy completed Not Available [facility] 10/22/19 23 05:56:33 08/23/19 17 mohs surgery completed Not Available [facility] 023 05:56:33 08/23/19 15 Xcapsl ctrc rmvl cplx wo ecp completed Not Available [facility] 10/21/2022 05:56:33 08/23/19 14 repair of retina for retinal detachment completed Not Available [facility] 10/21/2022 05:56:33 08/23/18 73 Appendectomy completed Not Available [facility] 023 05:56:33 Imaging Results Imaging Date Name Status LastModified by Organiz ation Details LastModified Time 11/19/2021 colonoscopy procedure (PROC) completed [id number] Nemesio Moore MD [address] [address] [address], [place], [address], 10/21/2022 06:09:49 08/05/2022 US, echocardiogram, transthoracic, complete, w/ color flow completed [id number] [facility] [address], [place], [address], 10/21/2022 06:09:49 08/13/2021 CT, abdomen + pelvis, w/ contrast completed [id number] [facility] (Imaging) [address] [place] [address] [place] [address], [address], 10/21/2022 06:09:49 06/10/2022 cardiac stress test completed [id number] [address], [address], 10/21/2022 06:09:49 06/10/2022 US, echocardiogram, transthoracic, complete, w/ color flow completed [id number] [address] [facility] [address], [address], 10/21/2022 06:09:49 06/10/2022 nuclear stress test completed [id number] [facility] (Human Resources) [address], [place], [address], 10/21/2022 06:09:49 06/09/2022 XR, chest completed [id number] [facility] (Human Resources) [address] [facility], [place], [address], 10/21/2022 06:09:49 10/13/2023 CT, abdomen + pelvis, w/o contrast completed [email or web address] [place] [address] [address], [place], [address], 11/25/2023 11:29:06 Procedure Notes None recorded. Medical Equipment None Reported. Allergies Allergen ID Allergen Name Allergen Category Reaction Reaction Severity Criticality Documentation Date Start Date Code Code System Note Provider Name and Address Organization Details Recorded Time 97161 Substance with sulfonami de structure and antibacte rial mechanism of action (substanc e) medicatio n Not available Not available Not available 10/21/2022 20904 8003 SNOMED Not Available [facility] 3 06:09:31 20357 Product containin g penicilli n (product) medicatio n Not available Not available Not available 10/21/2022 31898 8001 SNOMED Not Available [facility] 3 06:09:31 Medications Name Sig Start Date Stop Date Status Note LastModified by Organization Details LastModified Time amoxicillin 500 mg capsule 04/02 completed Not Available Not Available Not Available furosemide 40 mg tablet Take 1 tablet twice a day by oral route. 09/22 completed Not Available Not Available Not Available atorvastatin 40 mg tablet TAKE 1 TABLET BY MOUTH EVERY DAY active Not Available Not Available No t Available atorvastatin 20 mg tablet 05/08 completed Not Available Not Available Not Available bisoprolol 10 mg-hydrochlo rothiazide 6.25 mg tablet 05/14 completed Not Available Not Available Not Available hydrocodone 5 mg-acetamino phen 325 mg tablet TAKE 1 TABLET BY MOUTH EVERY 4 HOURS NEEDED FOR PAIN 03/05 completed Not Available Not Available Not Available enalapril maleate 20 mg tablet TAKE 1 TABLET BY MOUTH TWICE DAILY active Not Available Not Available No t Available clindamycin HCl 150 mg capsule 05/08 completed Not Available Not Available Not Available bisoprolol 5 mg-hydrochlo rothiazide 6.25 mg tablet TAKE 2 TABLETS BY MOUTH EVERY DAY 06/22 completed Not Available Not Available Not Available amlodipine 2.5 mg tablet active Not Available Not Available Not Available metronidazol e 500 mg tablet 03/05 completed Not Available Not Available Not Available clopidogrel 75 mg tablet TAKE 1 TABLET BY MOUTH DAILY active Not Available Not Available No t Available tramadol 50 mg tablet Take 1 tablet every 4 hours by oral route as needed. 03/19 completed Not Available Not Available Not Available potassium chloride 20 mEq oral packet Take 1 packet twice a day by oral route. 06/22 completed Not Available Not Available Not Available potassium chloride ER 20 mEq tablet,exten ded release(part /cryst) TAKE 1 TABLET BY MOUTH TWICE DAILY 09/22 completed Not Available Not Available Not Available metformin 1,000 mg tablet TAKE 1 TABLET BY MOUTH TWICE DAILY WITH MEALS active Not Available Not Available No t Available nitroglyceri n 0.4 mg sublingual tablet active Not Available Not Available Not Available quinapril 20 mg tablet TAKE 1 TABLET BY MOUTH TWICE DAILY 03/19 completed Not Available Not Available Not Available azelastine 137 mcg (0.1 %) nasal spray 03/05 completed Not Available Not Available Not Available levofloxacin 500 mg tablet Take 1 tablet every 24 hours by oral route at dinner. 10/02 completed Not Available Not Available Not Available neomycin 500 mg tablet 03/05 completed Not Available Not Available Not Available metformin ER 750 mg tablet,exten ded release 24 hr TK 1 T PO QD 05/14 completed Not Available Not Available Not Available metoprolol tartrate 25 mg tablet Take 1 tablet twice a day by oral route. active Not Available Not Available No t Available potassium chloride 20 meq twice daily 09/22 completed Not Available Not Available Not Available Tylenol PRN 2021 active Not Available Not Available Not Avai lable Centrum 03/19 completed Not Available Not Available Not Available Miralax 03/19 completed Not Available Not Available Not Available Januvia 100 mg tablet TAKE 1 TABLET BY MOUTH EVERY DAY active Not Available Not Available No t Available Suprep Bowel Prep Kit 17.5 gram-3.13 gram-1.6 gram oral solution DRINK FULL AMOUNT AT 3PM AND NEXT MORNING AT LEAST 6 HOURS BEFORE PROCEDUR E. FOLLOW WITH 32 OZ OF WATER 03/05 completed Not Available Not Available Not Available Fluad Quad 8293-3737(65 yr up)(PF) 60 mcg (15 mcg x 4)/0.5mL IM syringe ADM 0.5ML IM UTD active Not Available Not Available No t Available aspirin 81 mg capsule Take 1 capsule every day by oral route. 2021 active Not Available Not Available Not Avai lable Vitals Date Recorded Body mass index (BMI) Body height Oxygen saturation Oxygen saturation in Arterial blood by Pulse oximetry Heart rate Body temperature Body weight Systolic blood pressure Diastolic blood pressure Systolic blood pressure Diastolic blood pressure Provider Name and Address Organization Details Last Updated DateTime 1 26.4 kg/m2 180.34 cm 98 % 98 % 68 /min 97 [degF] 25347.1 1 g 120 mm[Hg] 70 mm[Hg] 110 mm[Hg] 60 mm[Hg] Not Available [facility] 3 05:57:19 Date Recorded Body mass index (BMI) Body height Oxygen saturation Oxygen saturation in Arterial blood by Pulse oximetry Heart rate Respiratory rate Body temperature Body weight Systolic blood pressure Diastolic blood pressure Provider Name and Address Organization Details Last Updated DateTime 2 26.4 kg/m2 180.34 cm 98 % 98 % 60 /min 16 /min 97.2 [degF] 50936.9 6 g 122 mm[Hg] 80 mm[Hg] Not Available [facility] 3 05:57:19 Date Recorded Body mass index (BMI) Body height Oxygen saturation Oxygen saturation in Arterial blood by Pulse oximetry Heart rate Body temperature Body weight Systolic blood pressure Diastolic blood pressure Provider Name and Address Organization Details Last Updated DateTime 2 26.8 kg/m2 180.34 cm 98 % 98 % 53 /min 97.5 [degF] 27216.0 2 g 130 mm[Hg] 72 mm[Hg] Not Available [facility] 3 05:57:19 Date Recorded Body height Oxygen saturation Oxygen saturation in Arterial blood by Pulse oximetry Heart rate Body temperature Body weight Systolic blood pressure Diastolic blood pressure Systolic blood pressure Diastolic blood pressure Provider Name and Address Organization Details Last Updated DateTime 3 180.34 cm 98 % 98 % 69 /min 97.8 [degF] 30178.3 7 g 126 mm[Hg] 78 mm[Hg] 140 mm[Hg] 80 mm[Hg] Not Available [facility] 3 05:57:19 Date Recorded Body height Body temperature Body mass index (BMI) Body weight Respiratory rate Oxygen saturation Oxygen saturation in Arterial blood by Pulse oximetry Heart rate Systolic blood pressure Diastolic blood pressure Provider Name and Address Organization Details Last Updated DateTime 3 180.34 cm 97.3 [degF] 26.4 kg/m2 54698.9 6 g 16 /min 99 % 99 % 57 /min 122 mm[Hg] 80 mm[Hg] BRUNILDA Kamara [employer] 3 12:03:30 Social History Question Answer Notes LastModified by [employer] ion Details LastModified Time Tobacco Smoking Status Never Smoker BRUNILDA Kamara [facility] [employer] 03/19/2023 11:57:02 What Is Your Level Of Alcohol Consumption? None [id number] Information not available 10/21/2022 What Is Your Level Of Caffeine Consumption? Occasional [id number] Information not available 10/21/2022 How Much Tobacco Do You Chew? None [id number] Information not available 10/21/2022 In The 14 Days Before Symptom Onset, Have You Had Close Contact With A Laboratory-confir med COVID-19 While That Case Was Ill? No [email or web address] Information not available 03/19/2023 In The 14 Days Before Symptom Onset, Have You Had Close Contact With A Person Who Is Under Investigation For COVID-19 While That Person Was Ill? No [email or web address] Information not available 03/19/2023 Are You Currently Employed? Yes [email or web address] Information not available 03/19/2023 What Type Of Diet Are You Following? REGULAR [id number] Information not available 10/21/2022 Which Illicit Or Recreational Drugs Have You Used? None [email or web address] Information not available 03/19/2023 Do You Or Have You Ever Used E-cigarettes Or Vape? 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 No [email or web address] Information no t available 03/19/2023 Do You Use Insect Repellent Routinely? No [email or web address] Information not available 03/19/2023 What Was The Date Of Your Most Recent Tobacco Screening? 04/03/2022 [email or web address] Information not available 03/19/2023 What Is Your Relationship Status? [id number] Information not available 10/21/2022 Do You Use Your Seat Belt Or Car Seat Routinely? Yes [email or web address] Information not available 03/19/2023 Do You Have Smoke And Carbon Monoxide Detectors In Your Home? Yes [email or web address] Information not available 03/19/2023 Do You Or Have You Ever Used Smokeless Tobacco? Never Used Smokeless Tobacco [id number] Information not available 10/21/2022 How Much Tobacco Do You Smoke? No [id number] Information not available 10/21/2022 Do You Use Any Illicit Or Recreational Drugs? No [email or web address] Information not available 03/19/2023 Do You Use Sunscreen Routinely? Yes [email or web address] Information not available 03/19/2023 Have You Recently Traveled Abroad? No [email or web address] Information not available 03/19/2023 Do You Have Any Dietary Restrictions? No [email or web address] Information not available 03/19/2023 Do You Or Have You Ever Used Any Other Forms Of Tobacco Or Nicotine? No [email or web address] Information not available 03/19/2023 Sex: Unknown Functional Status Question Answer Note LastModified by Organizat ion Details LastModified Time Are you able to care for yourself? Yes [email or web address] Information not available 03/19/2023 What is your exercise level? Moderate [id number] Information not available 10/21/2022 Mental Status None recorded. Family History Relationship Description Onset Age of this Age Resolved Age Notes LastModified by Organization Details LastModified Time Mother Diabetes mellitus [id number] Not available 10/21/2022 05:56:34 Mother Alzheimer's disease [email or web address] Not available 03/19 11:57:01 Father Dementia [email or web address] Not availab le 03/19/2023 11:57:01 Father Hypertensive disorder [id number] Not available 10/21/2022 05:56:35 Medical History Condition Response DIABETES, TYPE Y HYPERTENSION Y Immunizations Vaccine Type Date Status Note Provider Nam e and Address Organization Details Recorded Time COVID-19, mRNA, LNP-S, PF, 30 mcg/0.3 mL dose 1 completed Not Available [facility] 10/21/2022 06:09:10 COVID-19, mRNA, LNP-S, PF, 30 mcg/0.3 mL dose 1 completed Not Available [facility] 10/21/2022 06:09:10 Influenza, split virus, quadrivalent, preservative 0 completed Not Available [facility] 10/21/2022 06:09:10 pneumococcal, unspecified formulation 9 completed Not Available [facility] 10/21/2022 06:09:10 Td(adult) unspecified formulation 2 completed Not Available [facility] 10/21/2022 06:09:11 Hep A, adult 1 completed Not Available [facility] 10/21/2022 06:09:11 Past Encounters Encounter ID Performer Location Encounter Start Date Encounter Closed Date Diagnosis/Indication Diagnosis SNOMED-CT Code Diagnosis ICD10 Code Diagnosis Note [id number] [facility] [place] [address] [place] [address] 03/05/2021 00:00:00 03/21/2021 17:11:53 [id number] [facility] [place] [address] [place] [address] 08/04/2021 00:00:00 08/21/2021 16:19:36 [id number] [facility] [place] [address] [place] [address] 10/03/2021 00:00:00 10/20/2021 14:45:50 [id number] [facility] [place] [address] [place] [address] 04/03/2022 00:00:00 04/20/2022 11:42:55 [id number] [facility] [place] [address] [place] [address] 09/22/2022 00:00:00 09/22/2022 13:01:56 [id number] JAMES Jean-Baptiste [facility] [place] [address] [place] [address] 03/19/2023 11:56:56 03/19/2023 12:31:59 Well controlled type 2 diabetes mellitus 025673244 E11.9 5.7% stable on januvia and metformin 1000mg bid Coronary atherosclerosis 893730736 I25.10 stable with no chest pain or SOB/MCGRAW Benign ess ential hypertension 1945057 I10 elevation today at 160 systolic. He had a lot of salty food yesterday, and has had normal range home BPs. He will continue to monitor BPs at home and update wednesday Hyperlipidemia 53698137 E78.5 stable on atorvastat in 40mg daily. due for fasting lipid next month Long-term drug therapy 012070485 Z79.899 Health Concerns Section Related Observation LastModified by Organization Detai ls LastModified Time None Recorded Concern Status LastModified by Organization Details LastModified Time None Recorded Advance Directives Directive None Recorded Payers Encounter Date Sequence Insurance Name Policy Number Policy Lopez Covered Member ID Lopez Member ID Guarantor Name 03/19/2023 1 [place] Everette Rosario [id number] Everette Rosario 03/19/2023 2 [employer] SU[employer]LE[employer]AL - [employer] (MEDICARE SUPPLEMENT) PLAN G Everette Rosario [id number] Everette Rosario Notes Date Note Type Note Provider Name and Address Organization Details Recorded Time 021 text/ht ml Lower Urinary Tract Symptoms (LUTS)Reported bypatient.Quality:improving Severity:painless Onset/Timing:< 1 week Duration:occurs at night/while sleeping Context:denies excessive fluid intake; denies excessive caffeine intake; no dyspareunia; denies new medication treatment Alleviating Factors:antibiotics Associated Symptoms:no abdominal pain; no flank pain; no chills; no fever; no constipation; no diarrhea; no nausea; no vomiting; no temperaure; no post void dribbling; empties well; no dysuria; no incontinence; no nocturia; no urine odor; no gross hematuria; normal erection; normal libido; no hematospermia; no ejaculatory pain; no premature ejaculation; no penile curvature; no penile rash or lesions;groin pain;low back pain;weak force of stream;straining;hesitancy;urgency;f requency;penile painNotes:Says he is feeling better now that he has been on abx that were called out wednesday Not Available [employer] 08/21/2021 16:19:36 022 text/Daily [employer] ml DiabetesReported bypatient.Duration:chronic Control:usually well controlled; treated with diet and oral medications Compliance:compliant with medications; compliant with follow-up visits; compliant with diet;noncompliant with home glucose monitoring Self Care:not monitoring home glucose Context:checking feet regularly;not seeing eye doctor yearly;not taking aspirin daily Associated Symptoms:no weight gain; no weight loss; no dizziness; no sweats; no headaches; no confusion; no increased thirst; no increased appetite; no increased urination; no blurred vision; no numbness of feet; no calluses on feet; no fatigue; no blurred vision; no paresthesias Chronic Complications:hypertension: YesHypertensionReported bypatient.Duration:has noted for years Onset/Timing:better Alleviating Factors:medication Self Care:not under emotional stress Associated Symptoms:no shortness of breath; no fatigue; no palpitations; no decline in exercise capacity; no snoring Not Available [employer] 10/20/2021 14:45:50 022 text/Daily [employer] ml DiabetesReported bypatient.Control:usually well controlled Compliance:compliant with medications; compliant with follow-up visits; compliant with home glucose monitoring Self Care:monitoring glucose 2 times per day Context:not seeing eye doctor yearly;not checking feet regularly; taking aspirin daily Associated Symptoms:no weight gain; no weight loss; no dizziness; no sweats; no headaches; no confusion; no increased thirst; no increased appetite; no increased urination; no blurred vision; no numbness of feet; no calluses on feet; no fatigue; no blurred vision; no paresthesiasHyperlipidemiaReported bypatient.Duration:chronic Control:usually well controlled Compliance:exercises Complications:no coronary artery disease; no peripheral artery disease; no cardiovascular diseaseHypertensionReported bypatient.Onset/Timing:better Self Care:not under emotional stress Associated Symptoms:no shortness of breath; no palpitations; no decline in exercise capacity; no snoring;fatigue Not Available [employer] 04/20/2022 11:42:55 023 text/ht ml Coronary Artery Disease F/UReported bypatient.Severity:symptoms are improving; no chest discomfort with daily activities; has not needed to use Nitroglycerin Context:non-smoker Associated Symptoms:no chest pain; no neck pain; no left arm pain; no dyspnea with exertion; no sweating; no nausea; no stressNotes:CABG x4 in May 2022.DiabetesReported bypatient.Control:usually well controlled Compliance:compliant with medications; compliant with follow-up visits; compliant with home glucose monitoring Self Care:monitoring glucose 2 times per day Context:not seeing eye doctor yearly;not checking feet regularly; taking aspirin daily Associated Symptoms:no weight gain; no weight loss; no dizziness; no sweats; no headaches; no confusion; no increased thirst; no increased appetite; no increased urination; no blurred vision; no numbness of feet; no calluses on feet; no fatigue; no blurred vision; no paresthesiasHyperlipidemiaReported bypatient.Duration:chronic Control:usually well controlled Compliance:exercises Complications:no coronary artery disease; no peripheral artery disease; no cardiovascular diseaseHypertensionReported bypatient.Onset/Timing:better Self Care:not under emotional stress Associated Symptoms:no shortness of breath; no palpitations; no decline in exercise capacity; no snoring;fatigue Not Available [employer] 09/22/2022 13:01:56 023 text/ht ml Coronary Artery Disease F/UReported bypatient.Notes:stable and follows with cardiology routine.DiabetesReported bypatient.Duration:chronic Control:usually well controlled Compliance:compliant with medications; compliant with follow-up visits; compliant with diet; compliant with home glucose monitoring;has not had eye doctor visit in last year;has not had dietitian visit in last year;does not wear a medic alert bracelet or necklace;does not keep rapid-acting carbohydrate in car Self Care:monitoring glucose daily Context:normal range of home blood sugars (in the low 100s); seeing eye doctor regularly; checking feet regularly; taking aspirin daily Associated Symptoms:no weight gain; no weight loss; no dizziness; no sweats; no headaches; no confusion; no increased thirst; no increased appetite; no increased urination; no blurred vision; no numbness of feet; no calluses on feet; no coronary artery disease; no kidney disease; no peripheral vascular disease; no diabetic retinopathy; no diabetic neuropathyHyperlipidemiaReported bypatient.Duration:chronic Control:usually well controlled Compliance:compliant; compliant with diet; exercises Complications:no coronary artery disease; no peripheral artery disease; no cardiovascular diseaseHypertensionReported bypatient.Duration:has noted for years Onset/Timing:better Alleviating Factors:medication Associated Symptoms:no shortness of breath; no fatigue; no palpitations; no decline in exercise capacity; no snoring JAMES Jean-Baptiste [address] [facility], [facility] [address], [place], [address], [place] [facility] 03/19/2023 22:37:51
--- OUTSIDE RECORDS SUMMARY | 2024-10-17 09:57 | XMS_ITS | Clinical Summary ---
Author Organization [facility] Address [address] [place] [address] Care Team Providers Care Recreational Therapist Name Role Phone Bety Rollins Treasure RAMIREZ Primary Care Pr ovider Lazaro Mercedes MD Unavailable [phone] Bassam Heredia MD Unavailable Allergies Active Allergy Reactions Criticality Noted Date Comments Erythromycin Nausea only Low 06/11/2022 Latex Other (See comments) Low 10/25/2020 Cerner Allergy Text Annotation: Latex Cerner Allergy Text Annotation: Latex Penicillins Rash Medium 10/25/2020 Cerner Allergy Text Annotation: penicillins Procaine Rash Medium 06/11/2022 Sulfa (Sulfonamide Antibiotics) Rash Medium 10/25/2020 Cerner Allergy Text Annotation: sulfa drugs Medications aspirin 81 mg enteric coated tabletIndicatio ns:prevention of thrombosis Take 1 tablet (81 mg total) by mouth daily Active tspdgnma-sao-FM -lycopen-lutein 300-600-300 mcg tabletIndicatio ns:Vitamin Deficiency Prevention Take by mouth Activ e atorvastatin (LIPITOR) 40 mg tabletIndicatio ns:hyperlipidem ia Take 1 tablet (40 mg total) by mouth daily Active metFORMIN (GLUCOPHAGE) 1,000 mg tabletIndicatio ns:type 2 diabetes mellitus Take 1 tablet (1,000 mg total) by mouth 2 (two) times a day with meals Active loratadine (CLARITIN) 10 mg tabletIndicatio ns:Allergic Rhinitis Take 1 tablet (10 mg total) by mouth daily Active ferrous sulfate ER 324 mg (65 mg iron) EC tabletIndicatio ns:Iron Deficiency Anemia Take 65 mg by mouth daily with breakfast Active nitroglycerin (NITROSTAT) 0.[address] 1 tablet (0.4 mg total) under the tongue every 5 (five) minutes as needed for chest pain May repeat dose q 5 min, up to 3 doses total 25 tablet 11 2 Active enalapril (VASOTEC) 20 mg tablet Take 1 tablet (20 mg total) by mouth daily 90 tablet 3 3 Active Additional Information Patient taking differently:20 mg oral2 times daily, Reported on 05/26/2023 SITagliptin phosphate (JANUVIA) 100 mg tabletIndicatio ns:type 2 diabetes mellitus Take 1 tablet (100 mg total) by mouth daily 30 tablet 4 Active finasteride (PROSCAR) 5 mg tablet Take 1 tablet (5 mg total) by mouth daily 4 Active tamsulosin (FLOMAX) 0.4 mg extended release capsule Take 1 capsule (0.4 mg total) by mouth nightly 4 Active metoprolol tartrate (LOPRESSOR) 25 mg immediate release tablet TAKE 1 TABLET(25 MG) BY MOUTH TWICE DAILY 180 tablet 3 4 Active amLODIPine (NORVASC) 2.5 mg tabletIndicatio ns:Hypertension associated with diabetes (HCC) TAKE 1 TABLET(2.5 MG) BY MOUTH DAILY 90 tablet 1 4 Active Active Problems Problem Noted Date Diagnosed Date Left carotid bruit 12/02/2023 Hyperlipidemia associated with type 2 diabetes m ellitus 08/03/2022 Hypertension associated with diabetes 08/03/2022 Cardiomyopathy, ischemic 08/03/2022 NSTEMI (non-ST elevated myocardial infarction) ( CMS/HCC) 06/11/2022 Coronary artery disease of n ative heart with stable angina pectoris 06/10/2022 Overview (06/11/2022): Added automatically from request for surgery [id number] Surgical History Surgery Date Site/Laterality Comments APPENDECTOMY 1973 CATARACT EXTRACTION 2013 COLON SURGERY 11/09 CORONARY ARTERY BYPASS GRAFT 06/13 [place] 1997 Medical History Medical History Date Comments Cancer (CMS/HCC) (HCC) Skin Cancer-2017;colorect al 2020 Diabetes mellitus (HCC) Type 2 Hypertension Mixed conductive and sensori neural hearing loss Family History Medical History Relation Name Comments Alzheimer's disease Father Florentin Rosario([place]) Stroke Father Florentin Rosario(Dementia) Alzheimer's disease Mother Camille Rosario (1939 ) Diabetes Mother Camille Rosario (1939) Heart disease Mother Camille Rosario (1939) Hypertension Mother Camille Rosario (1939) Miscarriages / Stillbirths Mother Camille bonner (1939) Relation Name Status Comments Father Florentin Rosario(Dementia) Mother Camille Rosario (1939) Social History Tobacco Use Types Packs/Day Years Used Date Smoking Tobacco: Never Cigarettes Cigars Quit: 1979 Passive Smoke Exposure: Yes Smokeless Tobacco: Never Tobacco Cessation:Counseling Given: Not Answered Comments:Smoked ocassional cigar years ago PHQ-2 Answer Date Recorded PHQ-2 Total Score (If total score is 3 or more points, staff should administer the PHQ-9) 0 06/11/2022 Sex and Gender Information Value Date Recorded Sex Assigned at Not on file Legal Sex Male 5:49 PM CDT Gender Identity Not on file Sexual Orientation Not on file Obstetrics History Last Filed Vital Signs Vital Sign Reading Time Taken Comments Blood Pressure 138/84 06/29/2024 10:55 AM MOTOR WINDER Pulse 56 06/29/2024 10:55 AM MOTOR WINDER Temperature 36.6 C (97.8 F) 07/09/2022 10:21 AM MOTOR WINDER Respiratory Rate 16 11/03/2022 10:38 AM CDT Oxygen Saturation 99% 06/29/2024 10:55 AM MOTOR WINDER Inhaled Oxygen Concentration - - Weight 86.2 kg (190 lb) 06/29/2024 10:55 AM MOTOR WINDER Height 180.3 cm (5' 11 ) 06/29/2024 10:55 AM MOTOR WINDER Body Mass Index 26.5 06/29/2024 10:55 AM MOTOR WINDER Plan of Treatment Health Maintenance Due Date Last Done Comments Albumin Creatinine Ratio, Urine 1948 Dilated Eye Exam 1948 Foot Exam 1948 Hepatitis B Screening 1966 Zoster Vaccine (1 of 2) 1998 Well Visit 65+ 2013 Pneumococcal vaccine 65+ (2 of 2 - PCV) 05/15/2020 05/15/2019, 08/23/2018 Hemoglobin A1C 12/10/2022 06/11/2022 Depression Screening 06/10/2023 06/10/2022, 06/10/20 22 Fall Risk Assessment 06/17/2023 06/17/2022 eGFR 06/23/2023 06/23/2022, 05/24, 06/15/2022, Additional history exists Covid-19 Vaccine (5 - 2023-2 5 season) 2024 05/03/2022, 05/21/2021, 10/14/2020, Additional history exists Influenza Vaccine (#1) 2024 , 05/30/2021, 05/14/2020, Additional history exists Lipid Panel 12/01/2024 12/02/2023, 08/10/2022, 08/03/2022, Additional history exists DTaP/Tdap/Td Vaccine (4 - Td or Tdap) 11/01/2029 11/02/2019, 08/23/2011, 07/09/2010 Hepatitis C Screening Completed 06/12/2022 Abdominal Aortic Aneurysm (A AA) Screen Completed 06/15/2022, 02/05/2021 Procedures Procedure Name Priority Date/Time Associated Diagnosis Comments POCT LIPID PANEL Routine 12/02/2023 10:3 3 AM CDT Hyperlipidemia associated with type 2 diabetes mellitus (HCC) Coronary artery disease of circle artery of circle heart with stable angina pectoris (HCC) EGFR Routine 06/23/2022 12:[address] ABDOMEN PELVIS W CONTRAST ED Urgent/IP Urgent 06/15/2022 10:17 AM CDT HEPATITIS PANEL, ACUTE Routine 06/12/2022 3:02 PM CDT HEMOGLOBIN A1C Routine 06/11/2022 5:30 AM CDT from Last 3 Months or Most Recently Relevant to Health Maintenance Results * POCT lipid panel (12/02/2023 10:33 AM CDT) Cholesterol, POC 126 mg/dL HDL, POC 28 mg/dL Triglycerides, POC 118 mg/dL LDL Cholesterol POC 74 mg/dL Chol/HDL Ratio, POC 2.7 Non-HDL Cholesterol, POC 98 mg/dL Cholesterol Total, POC 126 mg/dL Capillary blood 12/02/2023 1 0:33 AM CDT us Bassam Heredia MD POINT OF CARE TEST ORDERA BLES Final Result * (ABNORMAL) eGFR (06/23/2022 12:30 PM CDT) eGFR 47(L) 90 - 130 mL/min/1. 73 m2 [facility] HARTMANN Comment: Interpretive Data Reference Interval Normal >/= 90 mL/min/1.73m2 Mildly decreased* 60 - 89 mL/min/1.73m2 Mildly to moderately decreased 45 - 59 mL/min/1.73m2 Moderately to severely decreased 30 - 44 mL/min/1.73m2 Severely decreased 15 - 29 mL/min/1.73m2 Kidney Failure < 15 mL/min/1.73m2 *Relative to young adult level Estimated glomerular filtration rate is determined by the 2020 CKD-EPI equation recommended by the National Kidney Foundation (A Unifying Approach to GFR Estimation: Recommendations of the NKF-ASK Task Force on Reassessing the Inclusion of Race in Diagnosing Kidney Disease, JASN 2020). The CKD-EPI equation should not be used for patients with unstable renal function and has not been validated in children and those over 70. Current interpretive data was last reviewed 2021. Blood 06/23/2022 12:3 0 PM CDT 06/23/2022 3:43 PM CDT us Notinfile Unknown LAB BLOOD ORDERABLES Final Res ult [facility] Department [place] [address] * CT Abdomen Pelvis W Contrast (06/15/2022 10:17 AM CDT) Anatomical Region Laterality Modality Body N/A Computed Tomogra phy 06/15/2022 10:4 4 AM CDT Impressions 06/15/2022 10:44 AM CDT 1. Small bilateral pleural effusions with underlying consolidation in the lower lobes. 2. Coronary artery disease. 3. Small stones and/or sludge in the gallbladder. 4. Aortic atherosclerosis. 5. Man catheter in place. 6. Irregular thickening of the wall of the urinary bladder. This could be due to long-standing bladder outlet obstruction. 7. No evidence retroperitoneal hemorrhage. 8. No evidence of a right groin pseudoaneurysm. Electronically signed by: Sunita Handy 06/15/2022 10:44 AM CDT EXAMINATION: CT ABDOMEN PELVIS W CONTRAST DATE: 06/15/2022 10:00 AM HISTORY: The IABP removal. Rule out retroperitoneal hemorrhage or right groin pseudoaneurysm. COMPARISON: None TECHNIQUE: CT of the abdomen and pelvis was performed following the intravenous administration of 94 mL Optiray 350.. Coronal and sagittal reconstructions were obtained. FINDINGS: Scans through the lung bases demonstrate small bilateral pleural effusions. There is underlying consolidation in the lower lobes. There is coronary artery calcification. The liver, pancreas and spleen appear normal. There are small stones and/or sludge in the gallbladder. No evidence of free air or free fluid in the abdomen. The kidneys and adrenal glands appear normal. No evidence of retroperitoneal adenopathy. There are atherosclerotic changes in the abdominal aorta. No evidence of appendicitis or other inflammatory lesion. No evidence of bowel obstruction. There is a Man catheter in urinary bladder. There is irregular thickening of the wall the urinary bladder. No evidence of retroperitoneal hemorrhage. No evidence of a pseudoaneurysm. No significant bony abnormality is seen. Procedure Note Alvarez Dennison MD - 06/15/2022 EXAMINATION: CT ABDOMEN PELVIS W CONTRAST DATE: 06/15/2022 10:00 AM HISTORY: The IABP removal. Rule out retroperitoneal hemorrhage or right groin pseudoaneurysm. COMPARISON: None TECHNIQUE: CT of the abdomen and pelvis was performed following the intravenous administration of 94 mL Optiray 350.. Coronal and sagittal reconstructions were obtained. FINDINGS: Scans through the lung bases demonstrate small bilateral pleural effusions. There is underlying consolidation in the lower lobes. There is coronary artery calcification. The liver, pancreas and spleen appear normal. There are small stones and/or sludge in the gallbladder. No evidence of free air or free fluid in the abdomen. The kidneys and adrenal glands appear normal. No evidence of retroperitoneal adenopathy. There are atherosclerotic changes in the abdominal aorta. No evidence of appendicitis or other inflammatory lesion. No evidence of bowel obstruction. There is a Man catheter in urinary bladder. There is irregular thickening of the wall the urinary bladder. No evidence of retroperitoneal hemorrhage. No evidence of a pseudoaneurysm. No significant bony abnormality is seen. IMPRESSION: 1. Small bilateral pleural effusions with underlying consolidation in the lower lobes. 2. Coronary artery disease. 3. Small stones and/or sludge in the gallbladder. 4. Aortic atherosclerosis. 5. Man catheter in place. 6. Irregular thickening of the wall of the urinary bladder. This could be due to long-standing bladder outlet obstruction. 7. No evidence retroperitoneal hemorrhage. 8. No evidence of a right groin pseudoaneurysm. Electronically signed by: Alvarez Dennison M.D. Concetta Aguilar NP IMG CT PROCEDURES Sherry l Result * Hepatitis panel, acute (06/12/2022 3:02 PM CDT) Hep A IgM Nonreactive Nonreactive [facility] Comment: Interpretive Data: If Hep A IgM Ab is reported as Equivocal, a new sample should be drawn in two weeks for testing. Current interpretive data was last revised on 19. Hep B core IgM Nonreactive Nonreactive [facility] Comment: Interpretive Data If HepB Core IgM Ab is reported as Equivocal, a new sample should be drawn in two weeks for testing. Current interpretive data was last revised on 19. Hep C Ab Nonreactive Nonreactive [facility] Comment: Interpretive Data Nonreactive: Antibodies to HCV not detected. Does NOT exclude the possibility of recent exposure to HCV. Equivocal: Equivocal for HCV antibodies. Supplemental molecular testing will be automatically performed to determine infection status in accordance with current CDC screening recommendations. Reactive: Positive for HCV antibodies. This may represent current or past HCV infection. Supplemental molecular testing will be automatically performed to determine current infection status in accordance with current CDC screening recommendations. Interpretive data was last revised on 2019. HepBsAg Nonreactive Nonreactive [facility] Blood 06/12/2022 3:02 PM CDT 06/12/2022 3:17 PM CDT Lazaro Mercedes MD LAB MICROBIOLOGY - GENERAL O RDERABLES Final Result Performing Organization Address [facility] de Phone Number [facility] [address] [facility] [place] [address] * (ABNORMAL) Hemoglobin A1c (06/11/2022 5:30 AM CDT) Hgb A1C 5.8(H) 4.0 - 5.6 % [facility]EL Estimated Average Glucose 120 mg/dL [facility] Comment: The ADA recommends reporting an estimated Average Glucose (eAG) with all Hemoglobin A1c results using the equation derived from a study of 507 normal and diabetic adults. Minority populations were underrepresented and children were not included. (Diabetes Care 31:5581-1766, 2008). The eAG is not equivalent to a fasting glucose. Blood 06/11/2022 5:30 AM CDT 06/11/2022 5:48 AM CDT Marcos RAMIREZ LAB BLOOD ORDERABLES Final Result Performing Organization Address [facility] de Phone Number SAMUEL [id number] [facility] [place] [address] from Last 3 Months or Most Recently Relevant to Health Maintenance [place] [address] MEDICARE [facility] MEDICARE SUPPLEMENT INSURANCE MEDICARE [facility] MEDICARE SUPPLEMENT INSURANCE MEDICARE [employer] MEDICARE SUPPLEMENT INSURANCE MEDICARE Advance Directives For more information, please contact: [phone] * Full Code (Latest Code Status on File) Date Activated Date Inactivated Comments 06/11/2022 1:10 AM 06/17/2022 10:40 PM Care Teams Recreational Therapist Relationship Specialty Start Date End Date Bety Rollins PA PCP - General Physician Home Care Manager Rn 06/09/22 [place] [id number] [address] Surgeon Cardiothoracic Surgery 06/17/22 Bassam Heredia MD [address] [facility] [address] [place] [id number] Consulting Physician Cardiology 06/17/22
--- OUTSIDE RECORDS SUMMARY | 2024-10-17 09:57 | XMS_ITS | Data Portability ---
Author Organization [facility] Address [address] [facility] [place] [address] Care Team Providers Care Dietician Name Role Phone BETY AGUILAR Primary Care Provider Unavailab le Assessment Encounter Date Assessment Date Assessment LastModified by Organization Details LastModified Time 04/19/2024 04/19/2024 PSA up to date with dr. zavala. Not available 04/19/2024 15:23:17 Plan of Treatment Reminders Order Date Submit Date Provider Last Modified By Organization Details Last Modified Time Details Appointments ANY 15 2024 08:30A M JAMES Jean-Baptiste Not available Not available Not available Lab BMP, serum or plasma 2023 025 [facility], [address] [place] [address], [id number], 10/12/2024 15:45:30 hepatic function panel, serum 2023 025 [facility], [address] [place] [address], [id number], 10/12/2024 15:40:42 hemoglobi n A1C/hemog lobin total, QN, blood 2023 025 [facility], [address], [address], [place], [place], , 10/13/2024 09:50:39 vitamin B12 + folate, serum or blood 2023 025 ARMEN Taylor MD [facility], [address], [address], [place], [place], , 10/12/2024 15:40:42 iron + total iron-bind ing capacity (TIBC), serum 2023 025 [facility], [address] [place] [address], [id number], 10/12/2024 15:55:22 ferritin, serum or plasma 2023 025 [facility], [address] [place] [address], [id number], 10/12/2024 15:30:53 CBC 2023 025 [facility], [address] [place] [address], [id number], 10/12/2024 15:50:32 lipid panel, serum 2023 025 [facility] Bharti Taylor MD [facility], [address] [facility], [address], [place], [place], , 10/13/2024 09:50:39 TSH + free T4, serum 2023 024 TATO Not available 11/03/2023 16:15:44 BMP, serum or plasma 2023 024 TATO Not available 11/03/2023 16:15:44 hepatic function panel, serum 2023 024 [email or web address] Not available 11/10/2023 17:35:42 vitamin B12 + folate, serum or blood 2023 024 Not available 11/05/2023 15:00:42 lipid panel, serum 2023 024 TATO Not available 11/03/2023 16:15:44 PSA, total, serum or plasma 2023 024 [email or web address] Not available 11/05/2023 15:00:42 hemoglobi n A1C/hemog lobin total, QN, blood 2023 024 TATO Not available 11/03/2023 15:50:48 urinalysi s complete, reflex culture 2023 024 TATO Not available 11/03/2023 15:50:48 Referral podiatris t referral 2023 024 [email or web address] [facility], [address] [facility], [place], [address], 05/31/2024 17:25:00 gastroent erologist referral 2023 024 [email or web address] Nemesio gamboa MD, [address], [address], [place], [address], 02/17/2024 08:03:16 urologist referral 2023 024 [facility], [address], [address], [place], [address], 11/17/2023 16:00:40 Procedures None recorded. Surgeries None recorded. Imaging XR, foot, 3 or more view 2023 024 [facility] (Imaging), [address], [place], [address], 05/11/2024 15:42:49 Medication Orders Januvia 100 mg tablet 2023 024 [id number], [address], [place], [id number], 10/31/2023 16:45:25 Patient TargetsNo targets recorded. Patient InstructionsNo instructions recorded. Reason for Referral Urologist Referral for [place] ureteronephrosis CT scan from oncology shows new moderate left sided hydroureteronephrosis with distended bladder, et Referring Physician: Bety Aguilar, Internal Medicine, Encounter Date: 10/20/2023 Build Master Referral for History of malignant neoplasm of colon Referring Physician: Bety Aguilar, Internal Medicine, Encounter Date: 10/20/2023 Hotshot Superintendent Referral for Inju ry of great toe Referring Physician: Bety Aguilar, Internal Medicine, Encounter Date: 05/11/2024 Results Created Date Observation Date Name Description Value Unit Range Abnormal Flag Note LastModifiedBy Organization Detail LastModifiedTime 10/26/19 24 10/13/2023 CT, abdom en + pelvi s, w/ contr ast No observ ation record ed. Not Available 2023 08:59:15 11/25/19 24 10/13/2023 CT, abdom en + pelvi s, w/ contr ast No observ ation record ed. [address], [place], [address], 12/12/2023 16:53:51 05/11/2005/11/2024 XR, foot, 3 or more view No observ ation record ed. [address], [place], [address], 05/31/2024 17:25:21 Result Notes None recorded. Problems Name Problem SNOMED Code Status Onset Date Resolution Date Notes Provider Name and Address Organization Details Recorded Time Long-term drug therapy Active 2023 JAMES Jean-Baptiste Attn: Elio sen,[address] [place], [address], [facility] 4 00:49:28 Anemia 103775696 Active 2023 JAMES Jean-Baptiste Attn: Elio sen,[address] [place], [address], [facility] 4 00:49:44 History of malignant neoplasm of colon 034637082 Active 2023 JAMES Jean-Baptiste Attn: Elio sen,[address] [facility], [place], [address], [facility] 4 00:49:54 Hyperlipidemia 44518489 Active 2023 JAMES Jean-Baptiste Attn: Elio sen,[address] [facility], [place], [address], [place] [facility] 4 00:49:55 Benign essential hypertension 3609131 Active 2023 JAMES Jean-Baptiste Attn: Jayshreekaleb sen,[address] [facility], [place], [address], [place] [facility] 4 00:49:59 History of coronary artery bypass grafting 891445957 Active 2023 JAMES Jean-Baptiste Attn: Elio mckinley,[address] [facility], [place], [address], [facility] - [facility] 4 00:50:00 Coronary atherosclerosi s 139995757 Active 2023 JAMES Jean-Baptiste Attn: Jayshreekaleb sen,[address] [facility], [place], [address], [facility] 4 00:50:07 Type 2 diabetes mellitus without complication 752567680 Active 2023 JAMES Jean-Baptiste Attn: Elio mckinley,[address] [facility], [place], [address], [facility] - [facility] 4 00:50:15 Body mass index 25-29 - overweight 360827165 Active 2023 Ciara Londono [place] null, [place] - [facility] 4 10:48:18 Problem Notes None recorded. Procedures Surgical History Date Name Laterality Status Provider Name and Address Organization Details Recorded Time Appendectomy completed Ciara Londono [place] [facility] 10/20/2023 15:11:20 Coronary artery bypass/reop completed Ciara Londono [place] - [facility] 10/20/2023 15:11:39 Heart Surgery completed Ciara Londono [place] - [facility] 10/20/2023 15:12:10 Imaging Results Imaging Date Name Status LastModified by [facility] Details LastModified Time 10/13/2023 CT, abdomen + pelvis, w/ contrast completed Information not available 10/27/2023 08:59:15 10/13/2023 CT, abdomen + pelvis, w/ contrast completed [facility] [address], [place], [address], 12/12/2023 16:53:51 05/11/2024 XR, foot, 3 or more view completed [facility] [address], [place], [address], 05/31/2024 17:25:21 Procedure Notes None recorded. Medical Equipment None Reported. Allergies No known drug allergies Medications Name Sig Start Date Stop Date Status Note LastModified by Organization Details LastModified Time atorvastatin 40 mg tablet TAKE 1 TABLET BY MOUTH EVERY DAY 2023 active Not Available Not Available Not Avai lable enalapril maleate 20 mg tablet TAKE 1 TABLET BY MOUTH TWICE DAILY active Not Available Not Available No t Available amlodipine 2.5 mg tablet active Not Available Not Available Not Available clopidogrel 75 mg tablet TAKE 1 TABLET BY MOUTH DAILY 04/19 completed Not Available Not Available Not Available tamsulosin 0.4 mg capsule TAKE 1 CAPSULE BY MOUTH AT BEDTIME active Not Available Not Available No t Available metformin 1,000 mg tablet TAKE 1 TABLET BY MOUTH TWICE DAILY active Not Available Not Available No t Available finasteride 5 mg tablet TAKE 1 TABLET BY MOUTH DAILY active Not Available Not Available No t Available metoprolol tartrate 25 mg tablet Take 1 tablet twice a day by oral route. active Not Available Not Available No t Available Januvia 100 mg tablet TAKE 1 TABLET BY MOUTH EVERY DAY active Not Available Not Available No t Available Vitals Date Recorded Body height Body mass index (BMI) Body weight Heart rate Respiratory rate Oxygen saturation Oxygen saturation in Arterial blood by Pulse oximetry Systolic blood pressure Diastolic blood pressure Provider Name and Address Organization Details Last Updated DateTime 4 180.34 cm 23.8 kg/m2 53676.3 g 78 /min 16 /min 98 % 98 % 144 mm[Hg] 80 mm[Hg] Ciara Lnodono [place] - [facility] 4 15:03:42 Date Recorded Systolic blood pressure Diastolic blood pressure Provider Name and Address Organization Details Last Updated DateTime 10/20/2023 140 mm[Hg] 80 mm[Hg] JAMES Jean-Baptiste Attn: Accounting,[address] [place], [address], [place] [facility] 10/20/2023 15:41:22 Date Recorded Body height Body mass index (BMI) Body weight Respiratory rate Oxygen saturation Oxygen saturation in Arterial blood by Pulse oximetry Heart rate Systolic blood pressure Diastolic blood pressure Provider Name and Address Organization Details Last Updated DateTime 180.34 cm 24.9 kg/m2 78777.8 8 g 18 /min 99 % 99 % 78 /min 148 mm[Hg] 90 mm[Hg] Ciara Londono MA [facility] 4 15:04:51 Date Recorded Body height Body mass index (BMI) Body weight Respiratory rate Oxygen saturation Oxygen saturation in Arterial blood by Pulse oximetry Heart rate Systolic blood pressure Diastolic blood pressure Provider Name and Address Organization Details Last Updated DateTime 180.34 cm 25.9 kg/m2 71525.8 2 g 18 /min 99 % 99 % 60 /min 146 mm[Hg] 88 mm[Hg] Ciara Londnoo MA [facility] 10:49:49 Social History Question Answer Notes LastModified by [employer] ion Details LastModified Time Tobacco Smoking Status Former Smoker QUIT Ciara Londono MA null, [facility] 10/20/2023 15:06:41 What Is Your Level Of Alcohol Consumption? None Information not available 10/20/2023 Are You Blind Or Do You Have Difficulty Seeing? No Information not available 05/11/2024 What Is Your Level Of Caffeine Consumption? Occasional Tea, Decaf Coffee, Coke Zero Information not available 10/20/2023 In The 14 Days Before Symptom Onset, Have You Had Close Contact With A Laboratory-confir med COVID-19 While That Case Was Ill? No Information not available 10/20/2023 In The 14 Days Before Symptom Onset, Have You Had Close Contact With A Person Who Is Under Investigation For COVID-19 While That Person Was Ill? No Information not available 10/20/2023 Have You Been To An Area Known To Be High Risk For COVID-19? No Information not available 10/20/2023 Are You Deaf Or Do You Have Serious Difficulty Hearing? Yes Information not available 05/11/2024 What Type Of Diet Are You Following? REGULAR Information not available 05/11/2024 Are There Any Guns Present In Your Home? No Information not available 10/20/2023 What Was The Date Of Your Most Recent Tobacco Screening? 05/11/2024 Information not available 05/11/2024 What Is Your Current Pack Years? [email or web address] ars Information not available 10/20/2023 Do You Use Your Seat Belt Or Car Seat Routinely? Yes Information not available 10/20/2023 Do You Have Smoke And Carbon Monoxide Detectors In Your Home? Yes Information not available 10/20/2023 Do You Feel Stressed (tense, Restless, Nervous, Or Anxious, Or Unable To Sleep At Night)? [id number] Information not available 10/20/2023 Do You Use Any Illicit Or Recreational Drugs? No Information not available 10/20/2023 Do You Use Sunscreen Routinely? No Information not available 10/20/2023 Has Tobacco Cessation Counseling Been Provided? Yes Information not available 10/20/2023 On What Date Was Tobacco Cessation Counseling Provided? 05/11/2024 Information not available 05/11/2024 Do You Or Have You Ever Used Any Other Forms Of Tobacco Or Nicotine? No Information not available 05/11/2024 Sex: Male Functional Status Question Answer Note LastModified by Organization D etails LastModified Time Are you able to care for yourself? Yes Information not available 05/11/2024 What is your exercise level? Moderate Information not available 05/11/2024 Mental Status None recorded. Family History Relationship Description Onset Age of this Age Resolved Age Notes LastModified by Organization Details LastModified Time Father Dementia [email or web address] Not availabl e 10/20/2023 15:13:06 Father Hypertensive disorder [email or web address] Not available 2023 15:13:52 Mother Diabetes mellitus [email or web address] Not available 2023 15:13:14 Mother Heart disease [email or web address] Not available 2023 15:13:23 Medical History Condition Response Coronary Artery Disease N Other N High Blood Pressure Y Atrial Fibrillation N Kidney or Bladder Problems N Depression N COPD N Blood Clots N GI Problems N Skin Problems N Anemia N Heart Attack (NE) Y Anxiety Disorder N Diabetes Y Muscle, Joint, or Bone Problems N Seizures/Epilepsy N Acid Reflux (GERD) N Cancer Y Asthma N Allergies N High Cholesterol Y Hepatitis N Liver Disease N Headaches N Heart Failure N Osteoporosis N Immunizations Vaccine Type Date Status Note Provider Nam e and Address Organization Details Recorded Time influenza, unspecified formulation 3 completed MICHELLE [place], [place] - [facility] 10/20/2023 15:07:54 Respiratory syncytial virus (RSV) MAB, unspecified 3 completed MICHELLE [place] [facility] 10/20/2023 15:08:51 Pneumococcal Conjugate, unspecified formulation 3 completed MICHELLE [place] [facility] 10/20/2023 15:09:07 Past Encounters Encounter ID Performer Location Encounter Start Date Encounter Closed Date Diagnosis/Indication Diagnosis SNOMED-CT Code Diagnosis ICD10 Code Diagnosis Note [id number] JAMES Jean-Baptiste [facility] [address] [place] [address] 10/20/2023 14:38:58 10/20/2023 15:45:43 Type 2 diabetes mellitus without complication 987589106 E11.9 refill on januvia 100mg that is due. check A1c lab History of coronary artery bypass grafting 457129275 Z95.1 stable. UTD with cardiology appt. Benign ess ential hypertension 8976231 I10 stable on amlodipine 2.5mg daily, enalapril 20mg bid, and metoprolol tartrate 25mg bid. Hyperlipidemia 24145517 E78.5 stable on atorvastat in 40mg daily. History of malignant neoplasm of colon 519831605 Z85.038 colonoscop y due this year with dr. radha galdamez Long-term drug therapy 365491878 Z79.899 routine bmp, lft and b12, folate due Hydroureteronephrosis 40 293704 N13.39 new and noted on recent CT scan from oncology. refer to urology for prompt evaluation . check urine w/cx Screening for malignant neoplasm of prostate 601347295 Z12.5 annual psa due Thyroid di sorder screening 948139702 Z13.29 routine thyroid studies due. [id number] JAMES Jean-Baptiste [facility] [employer] [address] [place] [address] 04/19/2024 14:43:10 04/19/2024 15:33:45 Type 2 diabetes mellitus without complication 996697315 E11.9 Patient is stable on Januvia 100 mg daily and metformin 1000 mg twice a day. A1c is stable at 5.8% History of coronary artery bypass grafting 152953533 Z95.1 stable. UTD with cardiology appt. Benign ess ential hypertension 6456730 I10 stable on amlodipine 2.5mg daily, enalapril 20mg bid, and metoprolol tartrate 25mg bid. All home numbers he brought in are all in normal controlled range. ? degree clinical coat bp elevations . Hyperlipidemia 66004407 E78.5 stable on atorvastat in 40mg daily. Next fasting lipids are due in September History of malignant neoplasm of colon 436304639 Z85.038 colonoscop y f/u UTD Long-term drug therapy 073151682 Z79.899 Next labs are due in September Anemia 671835452 D64.9 History of anemia which is likely anemia of chronic disease as he is up-to-date on GI colonoscop y. Repeat labs in September including B12, folate, iron studies and CBC. Hematology oncology also follows with patient routinely and has labs Coronary atherosclerosis 885727325 I25.10 Patient is asymptomat ic without chest pain, shortness of breath, dyspnea on exertion. Body mass index 20-24 - normal 912605916 Z68.24 BMI is 24.9 [id number] JAMES Jean-Baptiste [facility] [employer] [address] [place] [address] 05/11/2024 10:21:02 05/11/2024 11:26:26 Body mass index 25-29 - overweight 257122055 Z68.25 BMI is 25.9 Injury of great toe 2827 [address]85[address] S99.922A Check x-ray of left foot and refer to [employer] [employer] for suspected great toe fracture Health Concerns Section Related Observation LastModified by Organization Detai ls LastModified Time None Recorded Concern Status LastModified by Organization Details LastModified Time None Recorded Advance Directives Directive None Recorded Payers Encounter Date Sequence Insurance Name Policy Number Policy Lopez Covered Member ID Lopez Member ID Guarantor Name 10/20/2023 1 [place] Everette Rosario [id number] Everette Abraham 10/20/2023 2 [employer] [place] (MEDICARE SUPPLEMENT) Everette Rosario [id number] Everette Abraham 04/19/2024 1 [place] Everette Rosario [id number] Everette Rosario 04/19/2024 2 [employer] [place] (MEDICARE SUPPLEMENT) Everette Rosario [id number] Everette Rosario 05/11/2024 1 [place] Everette Rosario [id number] Everette Rosario 05/11/2024 2 [employer] [place] (MEDICARE SUPPLEMENT) Everette Rosario [id number] Everette Rosario Notes Date Note Type Note Provider Name and Address Organization Details Recorded Time 4 text/html Coronary Artery Disease F/UReported bypatient.Notes:pt is up to date on cardiology appt. labs are stable. on statin therapy.DiabetesReported bypatient.Notes:stable on metformin 1g bid and januvia 100mg daily andGeneric HPI TemplateReported bypatient.Notes:pt has hx of colon cancer with resection and following routinely with oncology. has CT scan to show us with findings related to his urinary system that need f/u on .HyperlipidemiaReported bypatient.Notes:stable on atorvastatin 40mg daily.HypertensionReporte d bypatient.Notes:stable on amlodipine 2.5mg daily, enalapril 20mg bid, and metoprolol tartrate 25mg bid. JAMES Jean-Baptiste Attn: Accounting,[address] [facility], [place], [address], [facility] 10/31/2023 16:59:54 4 text/html Pt. would like to discuss spot on his left hand states that it comes and goes , states that he puts mupirocin on it and it goes away states that he needs it refilled to help with that. JAMES Jean-Baptiste Attn: Accounting,[address] [facility], [place], [address], [facility] 04/24/2024 00:51:32 4 text/html Coronary Artery Disease F/UReported bypatient.Notes:pt is up to date on cardiology appt. labs are stable. on statin therapy.DiabetesReported bypatient.Notes:stable on metformin 1g bid and januvia 100mg daily andGeneric HPI TemplateReported bypatient.Notes:pt has hx of colon cancer with resection and following routinely with oncology.HyperlipidemiaRe ported bypatient.Notes:stable on atorvastatin 40mg daily.HypertensionReporte d bypatient.Notes:stable on amlodipine 2.5mg daily, enalapril 20mg bid, and metoprolol tartrate 25mg bid. JAMES Jean-Baptiste Attn: Accounting,[address] [facility], [place], [address], [facility] 04/24/2024 00:51:32 4 text/html FootReported bypatient.Notes:left great toe stubbed on bed post at night. Pt. states that he stubbed his toe states that he though it would get better and its having an affect on his walking and exercise, states that it was bruised under the toe nail, as well as the skin under the toe nail is changing color, left big toepain when he walks or puts pressure on it, that is when he feels the pain JAMES Jean-Baptiste Attn: Accounting,[address] [facility], [place], [address], [facility] 05/22/2024 09:55:15
--- OUTSIDE RECORDS SUMMARY | 2024-10-17 09:57 | XMS_ITS | Clinical Summary ---
Author Organization [facility] Address [address] [facility] [place] [address] Care Team Providers Care Sap Business Intelligence Consultant Name Role Phone Bety Rollins Primary Care Provider [phone] Allergies Active Allergy Reactions Criticality Noted Date Comments Latex Other (See Comments) 10/25/2020 Cerner Allergy Text Annotation: Latex Penicillins Rash Low 10/25/2020 Sulfa (Sulfonamide Antibiotics) Rash Low 10/25/2020 Medications SITagliptin (JANUVIA) 100 mg Tablet Take 100 mg by mouth. 0 Active metFORMIN (GLUCOPHAGE) 1,000 mg tablet Take 1,000 mg by mouth. 0 Active atorvastatin (LIPITOR) 40 mg tablet Take 40 mg by mouth. 0 Active aspirin (ECOTRIN EC) 81 mg Tablet, Delayed Release (E.C.) Take 81 mg by mouth. 0 Active enalapril (VASOTEC) 20 mg tablet enalapril maleate 20 mg tablet 3 Active metoprolol succinate (TOPROL XL) 25 mg Extended Release 24 hour tablet Take 25 mg by mouth daily. Active multivitamin tx with iron and folic acid tablet (Centrum) 18-400 mg-mcg Tablet Centrum Active ferrous sulfate 324 mg (65 mg iron) Tablet, Delayed Release (E.C.) Take 65 mg by mouth daily with breakfast. Active finasteride (PROSCAR) 5 mg tablet Take 5 mg by mouth daily. 4 Active loratadine (CLARITIN) 10 mg tablet Take 10 mg by mouth daily. Active LYCOPENE ORAL Take by mouth. A ctive amLODIPine (NORVASC) 2.5 mg tablet Take 2.5 mg by mouth daily. Active tamsulosin (FLOMAX) 0.4 mg capsule Take 0.4 mg by mouth daily at bedtime. 4 Active Active Problems Problem Noted Date Diagnosed Date Chronic anemia 08/25/2021 Rectal cancer 10/25/2020 Encounters Date Type Department Care Team Description 09/14/2024 External Device Data ST[facility] ABSTRACTION Provider, Abstract 09/13/2024 External Device Data [facility] ABSTRACTION Provider, Abstract 09/12/2024 External Device Data [facility] ABSTRACTION Provider, Abstract 09/05/2024 External Device Data [facility] ABSTRACTION Provider, Abstract 08/03/2024 2:15 PM RETAIL OFFICE MANAGER Office Visit [facility] Oncology and Hematology [facility] [address] [place] [address] Scott Taylor MD Rectal cancer (CMS/HCC) (Primary Dx); Chronic anemia 07/31/2024 Orders Only [facility] Oncology and [facility] [address] [place] [address] Scott Taylor MD from Last 3 Months Family History Medical History Relation Name Comments Lymphoma Sister 2 Relation Name Status Comments Brother Daughter Alive Father Mother Sister 1 Sister 2 Alive Sister 3 Alive Son Alive Social History Tobacco Use Types Packs/Day Years Used Date Smoking Tobacco: Former Smokeless Tobacco: Never Tobacco Cessation:Counseling Given: Not Answered Comments:over 40 years ago and wasnt much Alcohol Use Standard Drinks/Week Comments Never 0 (1 standard drink = 0.6 oz pur e alcohol) Feeling Safe Answer Date Recorded Within the last year, have y ou been afraid of your partner or ex-partner? No 10/25/2020 Within the last year, have y ou been humiliated or emotionally abused in other ways by your partner or ex-partner? No Within the last year, have y ou been kicked, hit, slapped, or otherwise physically hurt by your partner or ex-partner? No 10/25/2020 Within the last year, have y ou been raped or forced to have any kind of sexual activity by your partner or ex-partner? No 10/25/2020 Social Connections Answer Date Recorded In a typical week, how many times do you talk on the phone with family, friends, or neighbors? More than three times a week 10/25/2020 How often do you get togethe r with friends or relatives? Twice a week 10/25/2020 Attends Shinto Services Not on file 10/25 Active Member of Clubs or Organizations Not on f ile 10/25/2020 Attends Club or Organization Meetings Not on ronnie e 10/25/2020 Marital Status Not on file 10/25/2020 Financial Resource Strain Answer Date R ecorded How hard is it for you to pa y for the very basics like food, housing, medical care, and heating? Not hard at all 10/25/2020 Food Insecurity Answer Date Recorded Within the past 12 months, y ou worried that your food would run out before you got the money to buy more. Never true 10/26/19 21 Within the past 12 months, t he food you bought just didn't last and you didn't have money to get more. Never true 10/25/2020 Transportation Needs Answer Date Record ed In the past 12 months, has l ack of transportation kept you from medical appointments or from getting medications? No 12/2020 In the past 12 months, has l ack of transportation kept you from meetings, work, or from getting things needed for daily living? No 10/25/2020 Sex and Gender Information Value Date Recorded Sex Assigned at Not on file Legal Sex Male 3:09 PM RETAIL OFFICE MANAGER Gender Identity Not on file Sexual Orientation Not on file Last Filed Vital Signs Vital Sign Reading Time Taken Comments Blood Pressure 189/99 08/03/2024 2:06 PM RETAIL OFFICE MANAGER Pulse 60 08/03/2024 2:03 PM RETAIL OFFICE MANAGER Temperature 36.3 C (97.3 F) 08/03/2024 2:03 PM RETAIL OFFICE MANAGER Respiratory Rate 15 08/03/2024 2:03 PM RETAIL OFFICE MANAGER Oxygen Saturation 98% 08/03/2024 2:03 PM RETAIL OFFICE MANAGER Inhaled Oxygen Concentration - - Weight 84.6 kg (186 lb 6.4 oz) 08/03/2024 2:03 P M RETAIL OFFICE MANAGER Height 180.3 cm (5' 11 ) 04/23/2022 11:48 AM CDT Body Mass Index 26 04/23/2022 11:48 AM CDT Plan of Treatment Upcoming Encounters Date Type Department Care Team (Late st Contact Info) Description 02/01/2025 1:00 PM CDT Office Visit [facility] Oncology and Hematology - [place] [address] [place] [address] Scott Taylor MD [address] [facility] [address] [place] [address] Health Maintenance Due Date Last Done Comments DIABETES ANNUAL FOOT EXAM 1966 DIABETES ANNUAL RETINAL EXAM 1966 DIABETES MICROALBUMIN ANNUAL SCREEN 1966 LDL CHOLESTEROL ANNUAL 1966 ZOSTER VACCINE (1 of 2) 1998 RSV VACCINE (60+ or ) (1 - 1-dose 75+ series) 2023 INFLUENZA VACCINE (#1) 2024 05/14/2020 PNEUMOCOCCAL VACCINE 65+ YEA RS (2 of 2 - PCV) 05/06/2024 05/06/2023, 05/15/2019, 08/23/2018 DIABETES HBA1C Q 6 MONTHS 10/13/20242023, 03/25/2023, 09/23/2022, Additional history exists DTAP/TDAP/TD VACCINES (2 - T d or Tdap) 11/01/2029 11/02/2019, 08/23/2011 COLORECTAL SCREENING Discontinued 11/19/2021 Colorectal Cancer Screening Discontinued FIT-DNA Q 3 years Discontinued FIT/FOBT Q 1 year Discontinued Flex Sig/CT Colonography Q 5 years Discontinued Procedures Procedure Name Priority Date/Time Associated Diagnosis Comments IRON LEVEL Routine 07/27/2024 10:51 AM RETAIL OFFICE MANAGER COMPREHENSIVE METABOLIC PANEL Routine 07/27/2024 10:24 AM RETAIL OFFICE MANAGER CBC WITH DIFFERENTIAL Routine 07/27/2024 9:20 AM RETAIL OFFICE MANAGER HEMOGLOBIN A1C Routine 08/20/2021 from Last 3 Months or Most Recently Relevant to Health Maintenance Results * IRON LEVEL (07/27/2024 10:51 AM RETAIL OFFICE MANAGER) Blood us Scott Taylor MD CHEMISTRY ORDERABLES Final Resu lt * COMPREHENSIVE METABOLIC PANEL (07/27/2024 10:24 AM RETAIL OFFICE MANAGER) Blood Scott Taylor MD CHEMISTRY ORDERABLES Final Resu lt * CBC WITH DIFFERENTIAL (07/27/2024 9:20 AM RETAIL OFFICE MANAGER) Blood Scott Taylor MD HEMATOLOGY ORDERABLES Final Res ult * HEMOGLOBIN A1C (08/20/2021) Blood Abstract Provider CHEMISTRY ORDERABLES Final Res ult from Last 3 Months or Most Recently Relevant to Health Maintenance Insurance MEDICARE PART A AND B [facility] Care Teams Sap Business Intelligence Consultant Relationship Specialty Start Date End Date Bety Rollins PA PCP - General Physician Fence Maker 10/25/20
--- OUTSIDE RECORDS SUMMARY | 2024-10-17 09:57 | XMS_ITS | Encounter Summary ---
Author Organization Address [address] [place] [address] Care Team Providers Care White Sourer Name Role Phone eBty Rollins Primary Care Provider [phone] Encounter Details Date Type Department Care Team (Late Contact Info) Description 10/16/2020 Chart Note [facility] Radiation Therapy [address] [place] [address] [place] [address] [place] [address] Social History Tobacco Use Types Packs/Day Years Used Date Smoking Tobacco: Never Assessed Sex and Gender Information Value Date Recorded Sex Assigned at Not on file Legal Sex Male 3:09 PM PLASTIC CARD GRADER CARDROOM Gender Identity Not on file Sexual Orientation Not on file documented as of this encounter Plan of Treatment Upcoming Encounters Date Type Department Care Team (Late Contact Info) Description 02/01/2025 1:00 PM CDT Office Visit [facility] Oncology and Hematology - [place] [address] [facility] [address] [place] [address] Scott Taylor MD [address] [facility] [address] [place] [address] documented as of this encounter Visit Diagnoses Not on filedocumented in this encounter Care Teams White Sourer Relationship Specialty Start Date End Date Bety Rollins PA PCP - General Physician Woolen Tester 10/25/20 documented as of this encounter
--- OUTSIDE RECORDS SUMMARY | 2024-10-17 09:57 | XMS_ITS | Referral Summary ---
Author Organization [facility] Address [address] [place] [address] Care Team Providers Care Short Piece Handler Name Role Phone Bety Rollins Treasure RAMIREZ Primary Care Pr ovider Lazaro Mercedes MD Unavailable [phone] Bassam Heredia MD Unavailable Allergies Active Allergy [...] (81 mg total) by mouth daily Active yqexpflw-bqg-PH -lycopen-lutein 300-600-300 mcg tabletIndicatio ns:Vitamin Deficiency Prevention [...] (06/11/2022): Added automatically from request for surgery [id number] Social History Tobacco Use Types Packs/Day Years Used Date Smoking Tobacco: Never Cigarettes Cigars Quit: 1980 Passive Smoke Exposure: Yes Smokeless Tobacco: Never [...] Comments Blood Pressure 138/84 06/29/2024 10:55 AM DISPOSAL PLANT OPERATOR Pulse 56 06/29/2024 10:55 AM DISPOSAL PLANT OPERATOR Temperature 36.6 C (97.8 F) 07/09/2022 10:21 AM DISPOSAL PLANT OPERATOR Respiratory Rate 16 11/03/2022 10:38 AM CDT Oxygen Saturation 99% 06/29/2024 10:55 AM DISPOSAL PLANT OPERATOR Inhaled Oxygen Concentration - - Weight 86.2 kg (190 lb) 06/29/2024 10:55 AM DISPOSAL PLANT OPERATOR Height 180.3 cm (5' 11 ) 06/29/2024 10:55 AM DISPOSAL PLANT OPERATOR Body Mass Index 26.5 06/29/2024 10:55 AM DISPOSAL PLANT OPERATOR Plan of Treatment Not on file Procedures Procedure Name Priority Date/Time Associated Diagnosis Comments POCT LIPID PANEL Routine 12/02/2023 10:3 3 AM CDT Hyperlipidemia associated with type 2 diabetes mellitus (HCC) Coronary artery disease of [place] artery of [place] heart with stable angina pectoris (HCC) EGFR [...] * (ABNORMAL) eGFR (06/23/2022 12:30 PM CDT) Pathologist [facility] eGFR 47(L) 90 - 130 mL/min/1. 73 [...] LAB BLOOD ORDERABLES Final Res ult SAMUEL HARTMANN [address] [facility] Department [place] [address] * CT Abdomen Pelvis W Contrast (06/15/2022 [...] PM CDT) Hep A IgM Nonreactive Nonreactive [facility] Comment: Interpretive Data: If Hep A IgM Ab is reported as Equivocal, a new sample should be drawn in two weeks for testing. Current interpretive data was last revised on 19. Hep B core IgM Nonreactive Nonreactive [facility] Comment: Interpretive Data If HepB Core IgM Ab is reported as Equivocal, a new sample should be drawn in two weeks for testing. Current interpretive data was last revised on 19. Hep C Ab Nonreactive Nonreactive [facility] Comment: Interpretive Data Nonreactive: Antibodies to HCV [...] last revised on 2019. HepBsAg Nonreactive Nonreactive [facility] Blood 06/12/2022 3:02 PM CDT 06/12/2022 3:17 PM CDT Lazaro Mercedes MD LAB MICROBIOLOGY - GENERAL O RDERABLES Final Result Performing Organization Address [facility] Co de Phone Number SAMUEL [address] [place] [address] * (ABNORMAL) Hemoglobin A1c (06/11/2022 5:30 AM CDT) Hgb A1C 5.8(H) 4.0 - 5.6 % SAMUEL Estimated Average Glucose 120 mg/dL SAMUEL Comment: The ADA recommends reporting an estimated Average Glucose (eAG) with all Hemoglobin A1c results using the equation derived from a study of 507 normal and diabetic adults. Minority populations were underrepresented and children were not included. (Diabetes Care 31:0887-5235, 2008). The eAG is not equivalent to a fasting glucose. Blood 06/11/2022 5:30 AM CDT 06/11/2022 5:48 AM CDT Marcos RAMIREZ LAB BLOOD ORDERABLES Final Result Performing Organization Address [facility] Phone Number SAMUEL MURPHY [address] [place] [address] from Last 3 Months or Most Recently Relevant to Health [place] [address] MEDICARE [facility] MEDICARE SUPPLEMENT INSURANCE MEDICARE [facility] MEDICARE SUPPLEMENT INSURANCE MEDICARE [employer] MEDICARE SUPPLEMENT INSURANCE MEDICARE Advance Directives For more information, please contact: [phone] * Full Code (Latest Code Status on File) Date Activated Date Inactivated Comments 06/11/2022 1:10 AM 06/17/2022 10:40 PM Care Teams Short Piece Handler Relationship Specialty Start Date End Date Bety Rollins PA PCP - General Physician Rheumatology Nurse 06/09/22 [place] [address] [address] [facility] [address] [address] Surgeon Cardiothoracic Surgery 06/17/22 Bassam Heredia MD [address] [facility] [address] [place] [id number] Consulting Physician Cardiology 06/17/22
[2024-10-17 13:16] LABS: Hemoglobin A1C 5.6 % (<5.7)
[2024-10-17 22:09] LABS: Alanine Aminotransferase 22 U/L (6-50); Albumin Level 4.3 g/dL (3.5-5.1); Alkaline Phosphatase 56 U/L (38-126); Anion Gap 9 mmol/L (4-12); Bilirubin,Total 0.5 mg/dL (0.2-1.3); Blood Urea Nitrogen 29 mg/dL (9-20); Calcium 9.2 mg/dL (8.4-10.2); Carbon Dioxide 25 mmol/L (22-30); Chloride 107 mmol/L (98-107); Cholesterol 125 mg/dL (0-200); Estimated Glomerular Filt Rate > 60; Glucose 105 mg/dL (65-110); HDL Direct 31 mg/dL; Potassium 4.7 mmol/L (3.4-5.0); Sodium 141 mmol/L (137-145); Triglycerides 90 mg/dL (<150)
[2024-10-17 22:18] LABS: LDL Cholesterol Direct 69 mg/dL
[2024-10-17 23:34] LABS: Folic Acid > 20.0 ng/mL (2.76->20)
[2024-10-18 04:41] LABS: Aspartate Amino Transferase 58 U/L (17-59)
== END 2024-10-17 09:11 | disposition home or self-care (01) ==
PROVIDERS: PCP Urology; Visit Provider Physician Assistant
DX: E78.5 Hyperlipidemia, unspecified (principal); E11.9 Type 2 diabetes mellitus without complications; D64.9 Anemia, unspecified; Z79.899 Other long term (current) drug therapy
CPT/HCPCS: 36415; 80053; 80061; 82607; 82746; 83036

== ENCOUNTER 2025-01-26 09:41 | Outpatient (CLI) | payer MEDICARE, SELFPAY ==
--- OUTSIDE RECORDS SUMMARY | 2025-01-26 09:45 | XMS_ITS | Data Portability ---
Author Organization [facility], Main Office Address [address] [place] [address] Assessment Encounter Date Assessment Date Assessment LastModified [...] contr ast No observ ation record ed. [id number] [facility] (Imaging) [address], [place], [address], 10/21/2022 06:09:49 11/20/19 22 11/19/2021 colon oscop y proce dure (PROC ) No observ ation record ed. MIGRATION. Nemesio gamboa MD [address] [address] [address], [place], [address], 10/21/2022 06:09:49 06/11/20 22 06/09/2022 XR, chest No observ ation record ed. MIGRATION. [facility]) [address] [place] [address], [place], [address], 10/21/2022 06:09:49 06/22/20 22 06/10/2022 nucle ar stres s test No observ ation record ed. MIGRATION. [address] [place] [address]) [address] [place] [address], [place], [address], 10/21/2022 06:09:49 06/29/20 22 06/10/2022 cardi ac stres s test No observ ation record ed. MIGRATION. [address] [facility], [place], [address], 10/21/2022 06:09:49 06/29/20 22 06/10/2022 US, echoc ardio gram, trans thora cic, compl ete, w/ color flow No observ ation record ed. MIGRATION. [address] [facility], [place], [address], 10/21/2022 06:09:49 08/27/19 23 08/05/2022 US, echoc ardio gram, trans thora cic, compl ete, w/ color flow No observ ation record ed. MIGRATION. [facility] [address], [place], [address], 10/21/2022 06:09:49 10/13/19 24 10/13/2023 CT, abdom en + pelvi s, w/o contr ast No observ ation record ed. [email or web address] [place] [address] [place] [address] [place], [address], 11/25/2023 11:29:06 Result Notes None recorded. Problems Name Problem SNOMED Code Status Onset Date Resolution Date Notes Provider Name and Address Organization Details Recorded Time Benign essential hypertensi on 8571681 Active 2021 Not Available [facility] 3 06:02:38 Recurrent urinary tract infection 291590423 Active 2021 Not Available [facility] 3 06:02:38 Long-term drug therapy Active 2021 Not Available [facility] 3 06:02:38 Seasonal allergic rhinitis 695730025 Active 2021 Not Available [facility] 3 06:02:39 Hypertensi ve disorder 46790070 Active 2019 Not Available [facility] 3 06:02:39 History of malignant neoplasm of rectum 089124767 Active 2021 Not Available [facility] 3 06:02:39 Acute urinary tract infection 755228390 Active 2021 Not Available [facility] 3 06:02:39 Type 2 diabetes mellitus 08623981 Active 2019 Not Available [facility] 3 06:02:39 Coronary atheroscle rosis 025625803 Active 2022 Not Available [facility] 3 06:02:39 Well controlled type 2 diabetes mellitus 387894142 Active 2021 Not Available [facility] 3 06:02:39 Screening for malignant neoplasm of prostate Active 2021 Not Available [facility] 3 06:02:39 Hyperlipid emia 51869256 Active 2021 Not Available [facility] 3 06:02:39 Hyperlipid emia 70902016 Completed 201905/08/2020 Not Available [facility] 3 06:02:39 Urinary tract infectious disease 50674737 Active 2021 Not Available [facility] 3 06:02:40 Notes:COVID-19 pos 08/31/21 Problem Notes None recorded. Procedures Surgical History Date Name Laterality Status Provider Name and Address Organization Details Recorded Time 09/18/19 21 Colonoscopy completed Not Available [facility] 10/22/19 23 05:56:33 08/23/19 17 mohs surgery completed Not Available [facility] 023 05:56:33 08/23/19 15 Xcapsl ctrc rmvl cplx wo ecp completed Not Available [facility] 10/21/2022 05:56:33 08/23/19 14 repair of retina for retinal detachment completed Not Available [facility] 10/21/2022 05:56:33 08/23/18 73 Appendectomy completed Not Available [facility] 023 05:56:33 Imaging Results None recorded. Procedure Notes None recorded. Medical Equipment None Reported. Allergies Allergen ID Allergen Name Allergen Category Reaction Reaction Severity Criticality Documentation Date Start Date Code Code System Note Provider Name and Address Organization Details Recorded Time 48133 Substance with sulfonami de structure and antibacte rial mechanism of action (substanc e) medicatio n Not available Not available Not available 10/21/2022 79290 8003 SNOMED Not Available [facility] 3 06:09:31 10421 Product containin g penicilli n (product) medicatio n Not available Not available Not available 10/21/2022 06007 8001 SNOMED Not Available [facility] 3 06:09:31 Medications Name Sig Start Date [...] Not Available Not Available Not Available Miralax 03/193 completed Not Available Not Available Not Available [...] Available Not Available Not Available Fluad Quad (65 yr up)(PF) 60 mcg (15 mcg x 4)/0.5mL IM syringe ADM 0.5ML IM UTD active Not Available Not Available No t Available aspirin 81 mg capsule Take 1 capsule every day by oral route. 2021 active Not Available Not Available Not Avai lable Vitals Date Recorded Body height Oxygen saturation Oxygen saturation in Arterial blood by Pulse oximetry Heart rate Body temperature Body weight Systolic blood pressure Diastolic blood pressure Systolic blood pressure Diastolic blood pressure Provider Name and Address Organization Details Last Updated DateTime 3 180.34 cm 98 % 98 % 69 /min 97.8 [degF] 36782.3 7 g 126 mm[Hg] 78 mm[Hg] 140 mm[Hg] 80 mm[Hg] Not Available [facility] 3 05:57:19 Date Recorded Body mass index (BMI) Body height Oxygen saturation Oxygen saturation in Arterial blood by Pulse oximetry Heart rate Respiratory rate Body temperature Body weight Systolic blood pressure Diastolic blood pressure Provider Name and Address Organization Details Last Updated DateTime 2 26.4 kg/m2 180.34 cm 98 % 98 % 60 /min 16 /min 97.2 [degF] 73653.9 6 g 122 mm[Hg] 80 mm[Hg] Not Available [facility] 3 05:57:19 Date Recorded Body height Body temperature Body mass index (BMI) Body weight Respiratory rate Oxygen saturation Oxygen saturation in Arterial blood by Pulse oximetry Heart rate Systolic blood pressure Diastolic blood pressure Provider Name and Address Organization Details Last Updated DateTime 3 180.34 cm 97.3 [degF] 26.4 kg/m2 92251.9 6 g 16 /min 99 % 99 % 57 /min 122 mm[Hg] 80 mm[Hg] BRUNILDA Kamara - [facility] 3 12:03:30 Date Recorded Body mass index (BMI) Body height Oxygen saturation Oxygen saturation in Arterial blood by Pulse oximetry Heart rate Body temperature Body weight Systolic blood pressure Diastolic blood pressure Provider Name and Address Organization Details Last Updated DateTime 2 26.8 kg/m2 180.34 cm 98 % 98 % 53 /min 97.5 [degF] 59337.0 2 g 130 mm[Hg] 72 mm[Hg] Not Available [facility] 3 05:57:19 Date Recorded Body mass index (BMI) Body height Oxygen saturation Oxygen saturation in Arterial blood by Pulse oximetry Heart rate Body temperature Body weight Systolic blood pressure Diastolic blood pressure Systolic blood pressure Diastolic blood pressure Provider Name and Address Organization Details Last Updated DateTime 1 26.4 kg/m2 180.34 cm 98 % 98 % 68 /min 97 [degF] 85439.1 1 g 120 mm[Hg] 70 mm[Hg] 110 mm[Hg] 60 mm[Hg] Not Available [facility] 3 05:57:19 Social History Question Answer Notes LastModified by [employer] Details LastModified Time Tobacco Smoking Status Never Smoker Erlinda Kessler, BRUNILDA [employer], [place] - [facility] 03/19/2023 11:57:02 What Is Your Level Of Caffeine Consumption? Occasional [id number] Information not available 10/21/2022 How Much Tobacco Do You Chew? None [id number] Information not available 10/21/2022 In The 14 Days Before Symptom Onset, Have You Had Close Contact With A Laboratory-confirm ed COVID-19 While That Case Was Ill? No [email or web address] Information n ot available 03/19/2023 In The 14 Days Before Symptom Onset, Have You Had Close Contact With A Person Who Is Under Investigation For COVID-19 While That Person Was Ill? No [email or web address] Information not available 03/19/2023 What Type Of Diet Are You Following? REGULAR [id number] Information not available 10/21/2022 Which Illicit Or Recreational Drugs Have You Used? None Information not available 03/19/2023 Have There Been Any Changes To Your Family Or Social Situation? No [email or web address] Information no t available 03/19/2023 Do You Use Insect Repellent Routinely? No [email or web address] Information not available 03/19/2023 What Was The Date Of Your Most Recent Tobacco Screening? 04/03/2022 [email or web address] Information not available 03/19/2023 What Is Your Relationship Status? [id number] Information not available 10/21/2022 Do You Use Your Seat Belt Or Car Seat Routinely? Yes [email or web address] Information not available 03/19/2023 Do You Have Smoke And Carbon Monoxide Detectors In Your Home? Yes [email or web address] Information not available 03/19/2023 How Much Tobacco Do You Smoke? No [id number] Information not available 10/21/2022 Do You Use Sunscreen Routinely? Yes [email or web address] Information not available 03/19/2023 Have You Recently Traveled Abroad? No [email or web address] Information not available 03/19/2023 Do You Have Any Dietary Restrictions? No [email or web address] Information not available 03/19/2023 Sex: Unknown Functional Status Question Answer Note LastModified by Organizat ion Details LastModified Time Do you use any illicit or recreational drugs? No Information not available 03/19/2023 Do you or have you ever used any other forms of tobacco or nicotine? No Information not available 03/19/2023 What is your level of alcohol consumption? None [id number] Information not available 10/21/2022 Do you or have you ever used smokeless tobacco? Never used smokeless tobacco [id number] Information not available 10/21/2022 Are you currently employed? Yes [email or web address] Information not available 03/19/2023 Are you able to care for yourself? Yes [email or web address] Information not available 03/19/2023 What is your occupation? [employer] Educ[employer] [email or web address] Information not available 03/19/2023 Do you or have you ever used e-cigarettes or vape? Never used electronic cigarettes [email or web address] Information not available 03/19/2023 What is your exercise level? Moderate [id number] Information not available 10/21/2022 Mental Status None recorded. Family History Relationship Description Onset Age of this Age Resolved Age Notes LastModified by Organization Details LastModified Time Mother Diabetes mellitus [id number] Not available 10/21/2022 05:56:34 Mother Alzheimer's disease [email or web address] Not available 03/19 11:57:01 Father Dementia Not availab le 03/19/2023 11:57:01 Father Hypertensive disorder [id number] Not available 10/21/2022 05:56:35 Medical History Condition Response DIABETES, TYPE Y HYPERTENSION Y Immunizations Vaccine Type Date Status Note Provider Nam e and Address Organization Details Recorded Time COVID-19, mRNA, LNP-S, PF, 30 mcg/0.3 mL dose 1 completed Not Available [facility] 10/21/2022 06:09:10 COVID-19, mRNA, LNP-S, PF, 30 mcg/0.3 mL dose 1 completed Not Available [facility] 10/21/2022 06:09:10 Influenza, split virus, quadrivalent, preservative 0 completed Not Available [facility] 10/21/2022 06:09:10 pneumococcal, unspecified formulation 9 completed Not Available [facility] 10/21/2022 06:09:10 Td(adult) unspecified formulation 2 completed Not Available [facility] 10/21/2022 06:09:11 Hep A, adult 1 completed Not Available [facility] 10/21/2022 06:09:11 Past Encounters Encounter ID Performer Location Encounter Start Date Encounter Closed Date Diagnosis/Indication Diagnosis SNOMED-CT Code Diagnosis ICD10 Code Diagnosis Note [id number] JAMES Jean-Baptiste [facility] [place] [address] [place] [address] 03/05/2021 00:00:00 03/21/2021 17:11:53 [id number] JAMES Jean-Baptiste [facility] [place] [address] [place] [address] 08/04/2021 00:00:00 08/21/2021 16:19:36 [id number] JAMES Jean-Baptiste [facility] [place] [address] [place] [address] 10/03/2021 00:00:00 10/20/2021 14:45:50 [id number] Madhav Crane MD [facility] [place] [address] [place] [address] 04/03/2022 00:00:00 04/20/2022 11:42:[id number]-[facility]iste [facility] [place] [address] [place] [address] 09/22/2022 00:00:00 09/22/2022 13:01:[id number]-[facility]iste [facility] [place] [address] [place] [address] 03/19/2023 11:56:56 03/19/2023 12:31:59 Well controlled type 2 diabetes mellitus 710985307 E11.9 5.7% stable on januvia and metformin 1000mg bid Coronary atherosclerosis 466128971 I25.10 stable with no chest pain or SOB/MCGRAW Benign ess ential hypertension 3938719 I10 elevation today at 160 systolic. He had a lot of salty food yesterday, and has had normal range home BPs. He will continue to monitor BPs at home and update wednesday Hyperlipidemia 30938077 E78.5 stable on atorvastat in 40mg daily. due for fasting lipid next month Long-term drug therapy 469893735 Z79.899 Health Concerns Section Related Observation LastModified by Organization Detai ls LastModified Time None Recorded Concern Status LastModified by Organization Details LastModified Time None Recorded Advance Directives Directive None Recorded Payers Encounter Date Sequence Insurance Name Policy Number Policy Lopez Covered Member ID Lopez Member ID Guarantor Name 03/19/2023 1 [place] Everette Rosario [id number] Everette Rosario 03/19/2023 2 [employer] SU[employer]LEMENTAL - [employer] (MEDICARE SUPPLEMENT) PLAN G Everette Rosario [id number] Everette Rosario Notes Date Note Type Note [...] that were called out wednesday Not Available [facility] 08/21/2021 16:19:36 022 text/[employer] ml DiabetesReported bypatient.Duration:chronic Control:usually well controlled; treated [...] in exercise capacity; no snoring Not Available [facility] 10/20/2021 14:45:50 022 text/ht ml DiabetesReported bypatient.Control:usually well controlled Compliance:compliant with [...] in exercise capacity; no snoring;fatigue Not Available [employer] 04/20/2022 11:42:55 023 text/ht ml Coronary Artery [...] in exercise capacity; no snoring;fatigue Not Available [employer] 09/22/2022 13:01:56 023 text/ht ml Coronary Artery [...] in exercise capacity; no snoring JAMES Jean-Baptiste [address] [place] [address], [facility] [address], [place], [address], [place] [facility] 03/19/2023 22:37:51
--- OUTSIDE RECORDS SUMMARY | 2025-01-26 09:45 | XMS_ITS | Clinical Summary ---
Author Organization [facility] Address [address] [place] [address] Care Team Providers Care Master Naval Parachutist Name Role Phone Bety Rollins Treasure RAMIREZ Primary Care Pr ovider Lazaro Mercedes MD Unavailable [phone] Bassam Heredia MD Unavailable [phone] Allergies Active Allergy Reactions Criticality Noted Date Comments Erythromycin Nausea only Low 06/11/2022 Latex Other (See comments) Low 10/25/2020 Cerner Allergy Text Annotation: Latex Cerner Allergy Text Annotation: Latex Penicillins Rash Medium 10/25/2020 Cerner Allergy Text Annotation: penicillins Procaine Rash Medium 06/11/2022 Sulfa (Sulfonamide Antibiotics) Rash Medium 10/25/2020 Cerner Allergy Text Annotation: sulfa drugs Medications aspirin 81 mg enteric coated tabletIndicati ons:prevention of thrombosis Take 1 tablet (81 mg total) by mouth daily Active hlalwapd-vja-L L-gndcsga-zjur in 300-600-300 mcg tabletIndicati ons:Vitamin Deficiency Prevention Take by mouth Activ e metFORMIN (GLUCOPHAGE) 1,000 mg tabletIndicati ons:type 2 diabetes mellitus Take 1 tablet (1,000 mg total) by mouth 2 (two) times a day with meals Active loratadine (CLARITIN) 10 mg tabletIndicati ons:Allergic Rhinitis Take 1 tablet (10 mg total) by mouth daily Active ferrous sulfate ER 324 mg (65 mg iron) EC tabletIndicati ons:Iron Deficiency Anemia Take 65 mg by mouth [...] differently:20 mg oral2 times daily, Reported on 01/24/2025 SITagliptin phosphate (JANUVIA) 100 mg tabletIndicati ons:type 2 diabetes mellitus Take 1 tablet (100 mg total) by mouth daily 30 tablet 4 Active finasteride (PROSCAR) 5 mg tablet Take 1 tablet (5 mg total) by mouth daily 4 Active tamsulosin (FLOMAX) 0.4 mg extended release capsule Take 1 capsule (0.4 mg total) by mouth nightly 4 Active amLODIPine (NORVASC) 2.5 mg tabletIndicati ons:Hypertensi on associated with diabetes (HCC) TAKE 1 TABLET(2.5 MG) BY MOUTH DAILY 90 tablet 1 5 Active metoprolol tartrate (LOPRESSOR) 25 mg immediate release tablet TAKE 1 TABLET(25 MG) BY MOUTH TWICE DAILY 180 tablet 5 Active rosuvastatin (CRESTOR) 40 mg tabletIndicati ons:Hyperlipid emia associated with type 2 diabetes mellitus (HCC),Coronary artery disease of [place] artery of [place] heart with stable angina pectoris Take 1 tablet (40 mg total) by mouth daily 90 tablet 3 5 01/25/20 26 Active atorvastatin (LIPITOR) 40 mg tabletIndicati ons:hyperlipid emia Take 1 tablet (40 mg total) by mouth daily 01/25/20 25 Discontin ued(Thera py completed ) Active Problems Problem Noted Date Diagnosed Date Left carotid bruit 12/02/2023 Hyperlipidemia associated with type 2 diabetes m ellitus 08/03/2022 Hypertension associated with diabetes 08/03/2022 Cardiomyopathy, ischemic 08/03/2022 NSTEMI (non-ST elevated myocardial infarction) 1 Coronary artery disease of n ative heart with stable angina pectoris 06/10/2022 Overview (06/11/2022): Added automatically from request for surgery [id number] Encounters Date Type Department Care Team Description 01/24/2025 9:45 AM CDT Office Visit [facility] Cardiology [address] [place] [address] Bassam Heredia MD Hypertension associated with diabetes (HCC) (Primary Dx); Hyperlipidemia associated with type 2 diabetes mellitus (HCC); Coronary artery disease of [place] artery of [place] heart with stable angina pectoris; Cardiomyopathy, ischemic from Last 3 Months Surgical History Surgery Date Site/Laterality Comments APPENDECTOMY 1973 CATARACT EXTRACTION 2013 COLON SURGERY 11/09 CORONARY ARTERY BYPASS GRAFT 06/13 CANDICE1997 Medical History Medical History Date Comments Cancer (HCC) Skin Cancer-2016;colorectal 2020 Diabetes mellitus (HCC) Type 2 Hypertension Mixed conductive and sensori neural hearing loss Family History Medical History Relation Name Comments Alzheimer's disease Father Florentin Rosario([place]) Stroke Father Florentin Rosario(Dementia) Alzheimer's disease Mother Camille Rosario (1939 ) Diabetes Mother Camille Rosaroi (1941) Heart disease Mother Camille Rosario (1941) [...] Sign Reading Time Taken Comments Blood Pressure 134/60 01/24/2025 10:05 AM CDT Pulse 53 01/24/2025 10:05 AM CDT Temperature 36.6 C (97.8 F) 07/09/2022 10:21 AM MIXOLOGIST Respiratory Rate 16 11/03/2022 10:38 AM CDT Oxygen Saturation 98% 01/24/2025 10:05 AM CDT Inhaled Oxygen Concentration - - Weight 80.3 kg (177 lb) 01/24/2025 10:05 AM CDT Height 180.3 cm (5' 11) 01/24/2025 10:05 AM CDT Body Mass Index 24.69 01/24/2025 10:05 AM CDT Plan of Treatment Health Maintenance Due Date [...] 05/24, 06/15/2022, Additional history exists Covid-19 Vaccine ( - 2023-2 5 season) 2024 05/03/2022, 05/21/2021, 10/14/2020, Additional history exists Influenza Vaccine (Season Ended) 2025 05/03/2022, 05/30/2021, 05/14/2020, Additional history exists Lipid Panel 01/24/2026 01/24/2025, 0408/2023, 03/25/2023, Additional history exists DTaP/Tdap/Td Vaccine (4 - Td or Tdap) 11/01/2029 11/02/2019, 08/23/2011, 07/09/2010 Hepatitis C Screening Completed 06/12/2022 Abdominal Aortic Aneurysm (A AA) Screen Completed 06/15/2022, 02/05/2021 Procedures Procedure Name Priority Date/Time Associated Diagnosis Comments POCT LIPID PANEL Routine 01/24/2025 10:0 8 AM CDT Hyperlipidemia associated with type 2 diabetes mellitus (HCC) Coronary artery disease of [place] artery of [place] heart with stable angina pectoris EGFR Routine 06/23/2022 12:[address] ABDOMEN PELVIS W CONTRAST ED Urgent/IP Urgent 06/15/2022 10:17 AM CDT HEPATITIS PANEL, ACUTE Routine 06/12/2022 3:02 PM CDT HEMOGLOBIN A1C Routine 06/11/2022 5:30 AM CDT from Last 3 Months or Most Recently Relevant to Health Maintenance Results * (ABNORMAL) POCT lipid panel (01/24/2025 10:08 AM CDT) Cholesterol, POC 141 <200 MG/DL HDL, POC 26(A) >=40 mg/dL Triglycerides, POC 104 <=149 mg/dL LDL Cholesterol POC 94 <=129 mg/dL Chol/HDL Ratio, POC 3.6 NONE Non-HDL Cholesterol, POC 115 NONE mg/dL Cholesterol Total, POC 141 30 - 199 mg/dL Capillary blood 01/24/2025 1 0:08 AM CDT Bassam Heredia MD POINT OF CARE TEST ORDERA BLES Final Result * (ABNORMAL) eGFR (06/23/2022 12:30 PM CDT) eGFR 47(L) 90 - 130 mL/min/1. 73 m2 [facility] Comment: Interpretive Data Reference Interval Normal >/= [...] LAB BLOOD ORDERABLES Final Res ult SAMUEL DIAZ [facility] Department [place] [address] * CT Abdomen Pelvis W Contrast (06/15/2022 [...] pseudoaneurysm. Electronically signed by: Alvarez Dennison M.D. Narrative 06/15/2022 10:44 AM CDT EXAMINATION: CT ABDOMEN [...] signed by: Alvarez Dennison M.D. Concetta Aguilar ECOLOGIST IMG CT PROCEDURES Sherry l Result * Hepatitis panel, acute (06/12/2022 3:02 PM CDT) Hep A IgM Nonreactive Nonreactive [facility] Comment: Interpretive Data: If Hep A IgM Ab is reported as Equivocal, a new sample should be drawn in two weeks for testing. Current interpretive data was last revised on 19. Hep B core IgM Nonreactive Nonreactive [facility] Comment: Interpretive Data If HepB Core IgM Ab is reported as Equivocal, a new sample should be drawn in two weeks for testing. Current interpretive data was last revised on 19. Hep C Ab Nonreactive Nonreactive [facility] Comment: Interpretive Data Nonreactive: Antibodies to HCV [...] last revised on 2019. HepBsAg Nonreactive Nonreactive [facility] Blood 06/12/2022 3:02 PM CDT 06/12/2022 3:17 PM CDT Lazaro Mercedes MD LAB MICROBIOLOGY - GENERAL O RDERABLES Final Result [facility] [address] [place] [address] * (ABNORMAL) Hemoglobin A1c (06/11/2022 5:30 AM CDT) Pathologist [facility] Hgb A1C 5.8(H) 4.0 - 5.6 % [facility] Estimated Average Glucose 120 mg/dL [facility] Comment: The ADA recommends reporting an estimated Average Glucose (eAG) with all Hemoglobin A1c results using the equation derived from a study of 507 normal and diabetic adults. Minority populations were underrepresented and children were not included. (Diabetes Care 31:5909-4382, 2008). The eAG is not equivalent to a fasting glucose. Blood 06/11/2022 5:30 AM CDT 06/11/2022 5:48 AM CDT Marcos RAMIREZ LAB BLOOD ORDERABLES Final Result [facility] [address] [place] [address] from Last 3 Months or Most Recently Relevant to Health Maintenance Insurance MEDICARE [employer] MEDICARE SUPPLEMENT INSURANCE MEDICARE [employer] MEDICARE SUPPLEMENT INSURANCE MEDICARE [facility] MEDICARE SUPPLEMENT INSURANCE MEDICARE Advance Directives For more information, please contact: [phone] * Full Code (Latest Code Status on File) Date Activated Date Inactivated Comments 06/11/2022 1:10 AM 06/17/2022 10:40 PM Care Teams Master Naval Parachutist Relationship Specialty Start Date End Date Bety Rollins PA PCP - General Physician Cardroom Worker 06/09/22 Lazaro Mercedes MD Surgeon Cardiothoracic Surgery 06/17/22 Bassam Heredia MD [address] [address] Consulting Physician Cardiology 06/17/22
--- OUTSIDE RECORDS SUMMARY | 2025-01-26 09:45 | XMS_ITS | Continuity of Care Document ---
Author Organization [facility] Address [address] [facility] [address] [facility] [address] [place] [address] Phone Care Team Providers Care Color Grinder Name Role Phone Arana OD, Dennis Unavailable Unavailable Advance Directives Directive Yes / No Effective Date File Name No Information Encounters Encounter Description Practice Location Reason(s) For Visit Diagnoses Date Provider Providers Copied on Encounter [facility], [address], [place], [place], [id number], [place] tel:[phone] [facility] No Information Sep-2 1-200 0 Arana OD Dennis. [address] , [address], [place], [address], [place]. tel:[phone] Family History Family Member Type Diagnosis Age [...]
--- OUTSIDE RECORDS SUMMARY | 2025-01-26 09:45 | XMS_ITS | Encounter Summary ---
Author Organization [facility] Address [address] [place] [address] Care Team Providers Care Federal Java Developer Name Role Phone Bety Rollins Primary Care Provider [phone] Encounter Details Date Type Department Care Team (Late Contact Info) Description 10/16/2020 Chart Note [facility] Radiation Therapy [address] [place] [address] [place] [address] [place] [address] Social History Tobacco Use Types Packs/Day Years Used Date Smoking Tobacco: Never Assessed Sex and Gender Information Value Date Recorded Sex Assigned at Not on file Legal Sex Male 3:09 PM EPIDEMIOLOGY INTERN Gender Identity Not on file Sexual Orientation Not on file documented as of this encounter Plan of Treatment Upcoming Encounters Date Type Department Care Team (Late Contact Info) Description 02/01/2025 1:00 PM CDT Office Visit [facility] Oncology and Hematology - [place] [address] [facility] [address] [place] [address] Scott Taylor MD [address] [facility] [address] [place] [address] documented as of this encounter Visit Diagnoses Not on filedocumented in this encounter Care Teams Federal Java Developer Relationship Specialty Start Date End Date Bety Rollins PA PCP - General Physician Waterproofing Machine Operator 10/25/20 documented as of this encounter
--- OUTSIDE RECORDS SUMMARY | 2025-01-26 09:45 | XMS_ITS | Continuity of Care Document ---
Author Organization [facility] Address [address] [place] [address] Phone Care Team Providers Care Accounting Clerks Supervisor Name Role Phone Ravi Aguilar MD Unavailable Unavailable Advance Directives Directive Yes / No Effective Date File Name No Information Encounters Encounter Description Practice Location Reason(s) For Visit Diagnoses Date Provider Providers Copied on Encounter [facility], [id number] [place] [address], [id number], tel:[phone] [facility] No Information Jeff Rodrigues. [address], [id number], . tel:[phone] [facility], [address] [place] [address], [id number], tel:[phone] [facility] ADV EFF MED/BIOL SUB NOS Jeff Rodrigues. [address], [id number], . tel:[phone] Family History Family Member Type Diagnosis Age [...]
--- OUTSIDE RECORDS SUMMARY | 2025-01-26 09:45 | XMS_ITS | Data Portability ---
Author Organization [facility] Address [address] [facility] [place] [address] Care Team Providers Care Logistics Intern Name Role Phone BETY ROLLINS Primary Care Provider Unavailab le Assessment Encounter Date Assessment Date Assessment LastModified by Organization Details LastModified Time 04/19/2024 04/19/2024 PSA up to date with dr. galloway. Not available 04/19/2024 15:23:17 11/01/2024 11/01/2024 PSA up to date with dr. galloway. He will discuss this at his May appt. February 10, 2024 up-to-date colonoscopy repeat 2026 Not available 11/01/2024 10:04:12 Plan of Treatment Reminders Order Date Submit Date Provider Last Modified By Organization Details Last Modified Time Details Appointments ANY 15 2024 09:00A M JAMES Jean-Baptiste Not available Not available Not available Lab BMP, serum or plasma [address] Outpatient Registration Lab/Ekg, [address], [place], [address], 11/01/2024 09:58:38 hepatic function panel, serum [address] Outpatient Registration Lab[facility]kg, [address], [place], [address], 11/01/2024 09:58:38 hemoglobi n A1C/hemog lobin total, QN, blood [address] Outpatient Registration Lab[facility], [address], [place], [address], 11/01/2024 09:58:38 microalbu min, urine [address] Outpatient Registration Lab/Ekg, [address] [place] [address] [address], [place], [address], 11/01/2024 09:58:38 CBC [address] Outpatient Registration Lab/[facility]kg, [address] [place] [address] [address], [place], [address], 11/01/2024 09:58:38 lipid panel, serum [address] Outpatient Registration Lab/Ekg, [address] [place] [address] RT [facility], [place], [address], 11/01/2024 09:58:38 BMP, serum or plasma [address], [address] [place] [address] Rte [facility], [place], [address], 10/31/2024 15:25:58 hepatic function panel, serum [address], [address] [place] [address], [place], [address], 10/31/2024 15:26:24 hemoglobi n A1C/hemog lobin total, QN, blood 2023 025 TATO Taylor MD [facility], [address], [address], [place], [place], , 10/17/2024 16:20:52 vitamin B12 + folate, serum or blood 2023 025 [place] [address] Bharti Taylor MD Fac, [address], [address], [place], [place], , 10/31/2024 15:25:35 iron + total iron-bind ing capacity (TIBC), serum [address], [address] [facility] [address], [place], [address], 11/02/2024 12:12:54 ferritin, serum or plasma [address], [facility] [address], [place], [address], 11/02/2024 12:13:01 CBC [address], [address] [place] [address] [address], [place], [address], 11/02/2024 12:13:08 lipid panel, serum 2023 025 TATO Taylor MD [facility], [address] [facility], [address], [place], [place], , 10/18/2024 08:15:37 TSH + free T4, serum 2023 024 [...] PSA, total, serum or plasma 2023 024 [email or web address] Not available 11/05/2023 15:00:42 hemoglobi n A1C/hemog lobin total, QN, blood 2023 024 TATO Not available 11/03/2023 15:50:48 urinalysi s complete, reflex culture 2023 024 TATO Not available 11/03/2023 15:50:48 Referral podiatris t referral [email or web address] [facility], [address] [place], [address], 05/31/2024 17:25:00 gastroent erologist referral 2023 024 [email or web address] Nemesio gamboa MD, [address] [place] [address] [address], [place], [address], 02/17/2024 08:03:16 urologist referral 2023 024 [facility], [address] [facility] [address], [place], [address], 11/17/2023 16:00:40 Procedures None recorded. Surgeries None recorded. Imaging XR, foot, 3 or more view 2023 024 [facility] (Imaging), [address] [facility] [address], [place], [address], 05/11/2024 15:42:49 Medication Orders Januvia 100 mg tablet 2023 024 [id number], [address], [place], [id number], 11/01/2024 09:26:23 Patient TargetsNo targets recorded. 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 Not Available 2023 08:59:15 11/25/19 24 10/13/2023 CT, abdom en + pelvi s, w/ contr ast No observ ation record ed. [address], [place], [address], 12/12/2023 16:53:51 05/11/2005/11/2024 XR, foot, 3 or more view No observ ation record ed. [address], [place], [address], 05/31/2024 17:25:21 Result Notes None recorded. Problems Name Problem SNOMED Code Status Onset Date Resolution Date Notes Provider Name and Address Organization Details Recorded Time Long-term drug therapy Active 2023 JAMES Jean-Baptiste Attn: Elio sen,[address] [place], [address], [facility] 4 00:49:28 Anemia 647051779 Active 2023 JAMES Jean-Baptiste Attn: Elio sen,[address] [place], [address], [facility] 4 00:49:44 History of malignant neoplasm of colon 876170563 Active 2023 JAMES Jean-Baptiste Attn: Elio sen,[address] [facility], [place], [address], [facility] 4 00:49:54 Hyperlipidemia 36147561 Active 2023 JAMES Jean-Baptiste Attn: Elio sen,[address] [facility], [place], [address], [place] [facility] 4 00:49:55 Benign essential hypertension 0654795 Active 2023 JAMES Jean-Baptiste Attn: Elio mckinley,[address] [facility], [place], [address], [place] [facility] 4 00:49:59 History of coronary artery bypass grafting 809318719 Active 2023 JAMES Jean-Baptiste Attn: Elio sen,[address] [facility], [place], [address], [place] [facility] 4 00:50:00 Coronary atherosclerosi s 965038383 Active 2023 JAMES Jean-Baptiste Attn: Elio sen,[address] [place], [address], [place] [facility] 4 00:50:07 Type 2 diabetes mellitus without complication 851820894 Active 2023 JAMES Jean-Baptiste Attn: Elio sen,[address] [place], [address], [place] [facility] 4 00:50:15 Body mass index 25-29 - overweight 357391388 Active 2023 Ciara Londono [place] null, [place] [facility] 4 10:48:18 Overweight 086632986 Active 2024 JAMES Jean-Baptiste Attn: Elio sen,[address] [place], [address], [place] [facility] 5 09:46:07 Benign prostatic hyperplasia 826855848 Active 2024 JAMES Jean-Baptiste Attn: Elio sen,[address] [place], [address], [place] [facility] 5 09:57:04 Problem Notes None recorded. Procedures Surgical History Date Name Laterality Status Provider Name and Address Organization Details Recorded Time Appendectomy completed Ciara [place] [facility] 10/20/2023 15:11:20 Coronary artery bypass/reop completed Ciara Londono MA [facility] 10/20/2023 15:11:39 Heart Surgery completed Ciara Londono MA [facility] 10/20/2023 15:12:10 Imaging Results None recorded. Procedure Notes None recorded. Medical Equipment None Reported. Allergies No known drug allergies Medications Name Sig Start Date Stop Date Status Note LastModified by Organization Details LastModified Time atorvastatin 40 mg tablet Take 1 tablet every day by oral route for 90 days. active Not Available Not Available No t Available enalapril maleate 20 mg tablet Take 1 tablet every day by oral route for 90 days. active Not Available Not Available No t Available amlodipine 2.5 mg tablet Take 1 tablet every day by oral route for 90 days. active Not Available Not Available No t Available clopidogrel 75 mg tablet TAKE 1 TABLET BY MOUTH DAILY 04/19 completed Not Available Not Available Not Available tamsulosin 0.4 mg capsule Take 1 capsule every day by oral route for 90 days. active Not Available Not Available No t Available metformin 1,000 mg tablet TAKE 1 TABLET BY MOUTH TWICE DAILY 2024 active Not Available Not Available Not Avai lable finasteride 5 mg tablet TAKE 1 TABLET BY MOUTH DAILY active Not Available Not Available No t Available metoprolol tartrate 25 mg tablet Take 1 tablet twice a day by oral route. active Not Available Not Available No t Available Januvia 100 mg tablet TAKE 1 TABLET BY MOUTH EVERY DAY 2024 active Not Available Not Available Not Avai lable Vitals Date Recorded Systolic blood pressure Diastolic blood pressure Provider Name and Address Organization Details Last Updated DateTime 10/20/2023 140 mm[Hg] 80 mm[Hg] JAMES Jean-Baptiste Attn: Accounting,[address] [facility], [place], [address], [facility] 10/20/2023 15:41:22 Date Recorded Body height Body mass index (BMI) Body weight Heart rate Respiratory rate Oxygen saturation Oxygen saturation in Arterial blood by Pulse oximetry Systolic blood pressure Diastolic blood pressure Provider Name and Address Organization Details Last Updated DateTime 180.34 cm 23.8 kg/m2 66616.3 g 78 /min 16 /min 98 % 98 % 144 mm[Hg] 80 mm[Hg] Ciara Londono MA [facility] 4 15:03:42 Date Recorded Systolic blood pressure Diastolic blood pressure Systolic blood pressure Diastolic blood pressure Provider Name and Address Organization Details Last Updated DateTime 11/01/2024 138 mm[Hg] 80 mm[Hg] 150 mm[Hg] 80 mm[Hg] JAMES Jean-Baptiste Attn: Accounting ,[address] [place], [address] , [facility] 5 10:03:47 Date Recorded Body height Body mass index (BMI) Body weight Oxygen saturation Oxygen saturation in Arterial blood by Pulse oximetry Heart rate Respiratory rate Systolic blood pressure Diastolic blood pressure Provider Name and Address Organization Details Last Updated DateTime 5 180.34 cm 25.9 kg/m2 36806.1 8 g 99 % 99 % 60 /min 18 /min 146 mm[Hg] 80 mm[Hg] Ciara Londono MA [facility] 5 09:28:39 Date Recorded Body height Body mass index (BMI) Body weight Respiratory rate Oxygen saturation Oxygen saturation in Arterial blood by Pulse oximetry Heart rate Systolic blood pressure Diastolic blood pressure Provider Name and Address Organization Details Last Updated DateTime 4 180.34 cm 24.9 kg/m2 33963.8 8 g 18 /min 99 % 99 % 78 /min 148 mm[Hg] 90 mm[Hg] Ciara Londono MA [facility] 4 15:04:51 Date Recorded Body height Body mass index (BMI) Body weight Respiratory rate Oxygen saturation Oxygen saturation in Arterial blood by Pulse oximetry Heart rate Systolic blood pressure Diastolic blood pressure Provider Name and Address Organization Details Last Updated DateTime 4 180.34 cm 25.9 kg/m2 39128.8 2 g 18 /min 99 % 99 % 60 /min 146 mm[Hg] 88 mm[Hg] Ciara Londono MA [facility] 4 10:49:49 Social History Question Answer Notes LastModified by Organizat ion Details LastModified Time Tobacco Smoking Status Former Smoker QUIT Ciara Londono MA null, [facility] 10/20/2023 15:06:41 Are You Blind Or Do You Have [...] Date Of Your Most Recent Tobacco Screening? 11/01/2024 Information not available 11/01/2024 What Is Your Current Pack Years? [email or web address] ars Information not available 10/20/2023 Do You Use Your Seat Belt Or Car Seat Routinely? Yes Information not available 10/20/2023 Do You Have Smoke And Carbon Monoxide Detectors In Your Home? Yes Information not available 10/20/2023 Do You Use Sunscreen Routinely? No Information not available 10/20/2023 Has Tobacco Cessation Counseling Been Provided? Yes Information not available 10/20/2023 On What Date Was Tobacco Cessation Counseling Provided? 11/01/2024 Information not available 11/01/2024 Sex: Male Functional Status Question Answer Note LastModified by Organizat ion Details LastModified Time Do you use any illicit or recreational drugs? No Information not available 10/20/2023 Do you or have you ever used any other forms of tobacco or nicotine? No Information not available 05/11/2024 What is your level of alcohol consumption? None Information not available 10/20/2023 Are you currently employed? No Information not available 11/01/2024 Are you able to care for yourself? Yes Information n ot available 05/11/2024 What is your exercise level? Moderate Information not available 05/11/2024 Mental Status Question Answer Note LastModified by Organization D etails LastModified Time Do you feel stressed (tense, restless, nervous, or anxious, or unable to sleep at night)? [id number] Information not available 10/20/2023 Family History Relationship Description Onset Age of this Age Resolved Age Notes LastModified by Organization Details LastModified Time Father Dementia [email or web address] Not availabl e 10/20/2023 15:13:06 Father Hypertensive disorder tcarterma Not available 2023 15:13:52 Mother Diabetes mellitus [email or web address] Not available 2023 15:13:14 Mother Heart disease tcarterma Not available 2023 15:13:23 Medical History Condition Response Coronary Artery Disease N Other N Atrial Fibrillation N High Blood Pressure Y Kidney or Bladder Problems N Depression N COPD N Blood Clots N GI Problems N Skin Problems N Anemia N Heart Attack ([place]) Y Diabetes Y Anxiety Disorder N Muscle, Joint, or Bone Problems N Seizures/Epilepsy N Acid Reflux (GERD) N Cancer Y Allergies N Asthma N High Cholesterol Y Hepatitis N Liver Disease N Headaches N Osteoporosis N Heart Failure N Immunizations Vaccine Type Date Status Note Provider Nam e and Address Organization Details Recorded Time influenza, unspecified formulation 3 completed MICHELLE Carv[place]al, [place] [facility] 10/20/2023 15:07:54 Respiratory syncytial virus (RSV) MAB, unspecified 3 MICHELLE Valdov[place], [place] [facility] 10/20/2023 15:08:51 Pneumococcal Conjugate, unspecified formulation 3 MICHELLE Valdoivnos, [place] [facility] 10/20/2023 15:09:07 Past Encounters Encounter ID Performer Location Encounter Start Date Encounter Closed Date Diagnosis/Indication Diagnosis SNOMED-CT Code Diagnosis ICD10 Code Diagnosis Note [id number] Madhav Crane MD [facility] [address] [place] [address] 10/20/2023 14:38:58 10/20/2023 15:45:43 Type 2 diabetes mellitus without complication 525411325 E11.9 refill on januvia 100mg that is due. check A1c lab History of coronary artery bypass grafting 648366400 Z95.1 stable. UTD with cardiology appt. Benign ess ential hypertension 7494826 I10 stable on amlodipine 2.5mg daily, enalapril 20mg bid, and metoprolol tartrate 25mg bid. Hyperlipidemia 04916517 E78.5 stable on atorvastat in 40mg daily. History of malignant neoplasm of colon 875456422 Z85.038 colonoscop y due this year with dr. radha galdamez Long-term drug therapy 543927832 Z79.899 routine bmp, lft and b12, folate due Hydroureteronephrosis 40 519843 N13.39 new and noted on recent CT scan from oncology. refer to urology for prompt evaluation . check urine w/cx Screening for malignant neoplasm of prostate 771521365 Z12.5 annual psa due Thyroid di sorder screening 765114139 Z13.29 routine thyroid studies due. [id number] Madhav Crane MD [facility] [address] [place] [address] 04/19/2024 14:43:10 04/19/2024 15:33:45 Type 2 diabetes mellitus without complication 050381626 E11.9 Patient is stable on Januvia 100 mg daily and metformin 1000 mg twice a day. A1c is stable at 5.8% History of coronary artery bypass grafting 429805796 Z95.1 stable. UTD with cardiology appt. Benign ess ential hypertension 8562755 I10 stable on amlodipine 2.5mg daily, enalapril 20mg bid, and metoprolol tartrate 25mg bid. All home numbers he brought in are all in normal controlled range. ? degree clinical coat bp elevations . Hyperlipidemia 53099220 E78.5 stable on atorvastat in 40mg daily. Next fasting lipids are due in September History of malignant neoplasm of colon 847184339 Z85.038 colonoscop y f/u UTD Long-term drug therapy 217828028 Z79.899 Next labs are due in September Anemia 864735597 D64.9 History of anemia which is likely anemia of chronic disease as he is up-to-date on GI colonoscop y. Repeat labs in September including B12, folate, iron studies and CBC. Hematology oncology also follows with patient routinely and has labs Coronary atherosclerosis 089108789 I25.10 Patient is asymptomat ic without chest pain, shortness of breath, dyspnea on exertion. Body mass index 20-24 - normal 789415569 Z68.24 BMI is 24.9 [id number] Madhav Crane MD [facility] [address] [place] [address] 05/11/2024 10:21:02 05/11/2024 11:26:26 Body mass index 25-29 - overweight 260410309 Z68.25 BMI is 25.9 Injury of great toe 2827 43853 S99.922A Check x-ray of left foot and refer to district adviser for suspected great toe fracture [id number] Madhav Crane MD [facility] [place] [address] [place] [address] 11/01/2024 09:15:00 11/01/2024 14:18:50 Body mass index 25-29 - overweight 224625883 Z68.25 BMI is 25.9 Overweight 479958522 E66 .3 Type 2 angely betes mellitus without complication 974379599 E11.9 Patient is stable on Januvia 100 mg daily and metformin 1000 mg twice a day. 5.6%. Coronary atherosclerosis 779644536 I25.10 Patient is asymptomat ic without chest pain, shortness of breath, dyspnea on exertion. History of coronary artery bypass grafting 860823393 Z95.1 stable. UTD with cardiology appt. next appt january. Benign ess ential hypertension 8619715 I10 A little elevated unusually today, but he was very restless sleeping last night. Not much sleep. We will have him monitor BP's at home frequently , and notify us if readings remain above 140 systolic range. For now, continue amlodipine 2.5mg daily, enalapril 20mg bid, and metoprolol tartrate 25mg bid. Hyperlipidemia 63452898 E78.5 stable on atorvastat in 40mg daily. labs stable. History of malignant neoplasm of colon 686794603 Z85.038 colonoscop y January of 2024 is normal with repeat in 2026 Anemia 585045308 D64.9 History of anemia which is likely anemia of chronic disease as he is up-to-date on GI colonoscop y. Hematology oncology also follows with patient routinely and has labs next appt with Heme/onc is January. Long-term drug therapy 260989526 Z79.899 Next labs due in March Benign pro static hyperplasia 661299070 N40.[address] Galloway has an appointmen t in December and will discuss his annual PSA to be ordered with them Health Concerns Section Related Observation LastModified by Organization Detai ls LastModified Time None Recorded Concern Status LastModified by Organization Details LastModified Time None Recorded Advance Directives Directive None Recorded Payers Encounter Date Sequence Insurance Name Policy Number Policy Lopez Covered Member ID Lopez Member ID Guarantor Name 10/20/2023 1 [place] Everette Rosario [id number] Everette Rosario 10/20/2023 2 [employer] [place] (MEDICARE SUPPLEMENT) Everette Rosario [id number] Everette Rosario 04/19/2024 1 [place] Everette Rosario [id number] Everette Rosario 04/19/2024 2 [employer] [place] (MEDICARE SUPPLEMENT) Everette Rosario [id number] Everette Rosario 05/11/2024 1 [place] Everette Rosario [id number] Everette Rosario 05/11/2024 2 [employer] [place] (MEDICARE SUPPLEMENT) Everette Rosario [id number] Everette Rosario 11/01/2024 1 [place] Everette Rosario [id number] Everette Rosario 11/01/2024 2 [employer] [place] (MEDICARE SUPPLEMENT) Everette Rosario [id number] Evertete Rosario Notes Date Note Type Note Provider [...] bid. JAMES Jean-Baptiste Attn: Accounting,[address] [facility], [place], [address], [facility] 10/31/2023 16:59:54 4 text/html Pt. would like to discuss spot on his left hand states that it comes and goes , states that he puts mupirocin on it and it goes away states that he needs it refilled to help with that. JAMES Jean-Baptiste Attn: Accounting,[address] [facility], [place], [address], [facility] 04/24/2024 00:51:32 4 text/html Coronary Artery Disease [...] bid. JAMES Jean-Baptiste Attn: Accounting,[address] [facility], [place], [address], [facility] 04/24/2024 00:51:32 4 text/html FootReported bypatient.Notes:left great [...] the pain JAMES Jean-Baptiste Attn: Accounting,[address], [place], [address], [facility] 05/22/2024 09:55:15 text/html Coronary Artery Disease F/UReported bypatient.Notes:pt is up to date on cardiology appt. labs are stable. on statin therapy.DiabetesReported bypatient.Notes:stable on metformin 1g bid and januvia 100mg daily andGeneric HPI TemplateReported bypatient.Notes:pt has hx of colon cancer with resection and following routinely with oncology.HyperlipidemiaRe ported bypatient.Notes:stable on atorvastatin 40mg daily.HypertensionReporte d bypatient.Notes:on amlodipine 2.5mg daily, enalapril 20mg bid, and metoprolol tartrate 25mg bid. JAMES Jean-Baptiste Attn: Accounting,[address], [place], [address], [facility] 11/01/2024 10:50:08
--- OUTSIDE RECORDS SUMMARY | 2025-01-26 09:45 | XMS_ITS | Continuity of Care Document ---
Author Organization [facility] Address [address] [place] [address] Phone Care Team Providers Care Public Relations Name Role Phone Luli Avalos DO Unavailable Unavailable Advance Directives Directive Yes / No Effective Date File Name No Information Encounters Encounter Description Practice Location Reason(s) For Visit Diagnoses Date Provider Providers Copied on Encounter [facility], [address] [place] [address], [id number], tel:[phone] [place] No Information Robbie Rockwell. [address] [place] [address], [id number], [place]. tel:[phone] Family History Family Member Type Diagnosis Age [...]
--- OUTSIDE RECORDS SUMMARY | 2025-01-26 09:45 | XMS_ITS | Referral Summary ---
Author Organization [facility] Address [address] [place] [address] Care Team Providers Care Towel Sewer Name Role Phone Bety Rollins Treasure RAMIREZ Primary Care Pr ovider Lazaro Mercedes MD Unavailable [phone] Bassam Heredia MD Unavailable Encounters Date Type Department Care Team Description 01/24/2025 9:45 AM CDT Office Visit [facility] Medical Group Cardiology [address] [place] [address] Bassam Heredia MD Hypertension associated with diabetes (HCC) (Primary Dx); Hyperlipidemia associated with type 2 diabetes mellitus (HCC); Coronary artery disease of [place] artery of [place] heart with stable angina pectoris; Cardiomyopathy, ischemic from Last 3 Months Allergies Active Allergy Reactions Criticality Noted Date [...] (81 mg total) by mouth daily Active peieihnw-tvj-P R-dygonys-kyew in 300-600-300 mcg tabletIndicati ons:Vitamin Deficiency Prevention [...] 2 diabetes mellitus (HCC),Coronary artery disease of [place] artery of [place] heart with stable angina pectoris Take 1 [...] (06/11/2022): Added automatically from request for surgery [id number] Social History Tobacco Use Types Packs/Day Years [...] 36.6 C (97.8 F) 07/09/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 Respiratory Rate 16 11/03/2022 10:38 AM CDT Oxygen Saturation 98% 01/24/2025 10:05 AM CDT Inhaled Oxygen Concentration - - Weight 80.3 kg (177 lb) 01/24/2025 10:05 AM CDT Height 180.3 cm (5' 11) 01/24/2025 10:05 AM CDT Body Mass Index 24.69 01/24/2025 10:05 AM CDT Plan of Treatment Not on file Procedures Procedure Name Priority Date/Time Associated Diagnosis Comments POCT LIPID PANEL Routine 01/24/2025 10:0 8 AM CDT Hyperlipidemia associated with type 2 diabetes mellitus (HCC) Coronary artery disease of [place] artery of [place] heart with stable angina pectoris EGFR Routine [...] 90 - 130 mL/min/1. [address] [facility] Comment: Interpretive Data Reference Interval [...] ORDERABLES Final Res ult SAMUEL HARTMANN [facility] [place] [address] * CT Abdomen Pelvis W Contrast (06/15/2022 [...] signed by: Alvarez Dennison M.D. Concetta Aguilar TRANSIT WORKER IMG CT PROCEDURES Sherry l Result * Hepatitis panel, acute (06/12/2022 3:02 PM CDT) Hep A IgM Nonreactive Nonreactive SAMUEL MURPHY Comment: Interpretive Data: If Hep A IgM Ab is reported as Equivocal, a new sample should be drawn in two weeks for testing. Current interpretive data was last revised on 19. Hep B core IgM Nonreactive Nonreactive [facility] Comment: Interpretive Data If HepB Core IgM Ab is reported as Equivocal, a new sample should be drawn in two weeks for testing. Current interpretive data was last revised on 19. Hep C Ab Nonreactive Nonreactive SAMUEL Comment: Interpretive Data Nonreactive: Antibodies to HCV [...] last revised on 2019. HepBsAg Nonreactive Nonreactive [facility] Blood 06/12/2022 3:02 PM CDT 06/12/2022 3:17 PM CDT us Lazaro Mercedes MD LAB MICROBIOLOGY - GENERAL O RDERABLES Final Result [facility] [address] [place] [address] * (ABNORMAL) Hemoglobin A1c (06/11/2022 5:30 AM CDT) Hgb A1C 5.8(H) 4.0 - 5.6 % SAMUEL Estimated Average Glucose 120 mg/dL [facility] Comment: The ADA recommends reporting an estimated Average Glucose (eAG) with all Hemoglobin A1c results using the equation derived from a study of 507 normal and diabetic adults. Minority populations were underrepresented and children were not included. (Diabetes Care 31:5500-0265, 2008). The eAG is not equivalent to a fasting glucose. Blood 06/11/2022 5:30 AM CDT 06/11/2022 5:48 AM CDT us Marcos RAMIREZ LAB BLOOD [place] [address] [address] Department [place] [address] from Last 3 Months or Most Recently Relevant to Health Maintenance Insurance MEDICARE [facility] MEDICARE SUPPLEMENT INSURANCE [place] [id number] MEDICARE [facility] MEDICARE SUPPLEMENT INSURANCE MEDICARE [facility] MEDICARE SUPPLEMENT INSURANCE MEDICARE Advance Directives For more information, please contact: [phone] * Full Code (Latest Code Status on File) Date Activated Date Inactivated Comments 06/11/2022 1:10 AM 06/17/2022 10:40 PM Care Teams Towel Sewer Relationship Specialty Start Date End Date Bety Rollins PA PCP - General Physician Double Spindle Shaper Operator 06/09/22 Lazaro Mercedes MD Surgeon Cardiothoracic Surgery 06/17/22 Bassam Heredia MD [address] [address] Consulting Physician Cardiology 06/17/22
--- OUTSIDE RECORDS SUMMARY | 2025-01-26 09:45 | XMS_ITS | Clinical Summary ---
Author Organization [facility] Address [address] [facility] [place] [address] Care Team Providers Care Proration Clerk Name Role Phone Bety Rollins Primary Care Provider [phone] Allergies Active Allergy Reactions Criticality Noted Date [...] Encounters Date Type Department Care Team Description 01/11/2025 External Device Data STL ABSTRACTION Provider, Abstract 01/11/2025 External Device Data STL ABSTRACTION Provider, Abstract 01/10/2025 External Device Data STL ABSTRACTION Provider, Abstract 01/10/2025 External Device Data [facility] ABSTRACTION Provider, Abstract 01/09/2025 External Device Data [facility] ABSTRACTION Provider, Abstract 12/05/2024 External Device Data [facility] ABSTRACTION Provider, Abstract 11/28/2024 External Device Data [facility] ABSTRACTION Provider, Abstract 11/08/2024 External Device Data STL ABSTRACTION Provider, Abstract 10/30/2024 External Device Data STL ABSTRACTION Provider, Abstract from Last 3 Months Family History Medical [...] or relatives? 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 Gender Identity Not on file Sexual Orientation Not on file Last Filed Vital Signs Vital Sign Reading Time Taken Comments Blood Pressure 189/99 08/03/2024 2:06 PM BOOKING AGENT Pulse 60 08/03/2024 2:03 PM BOOKING AGENT Temperature 36.3 C (97.3 F) 08/03/2024 2:03 PM BOOKING AGENT Respiratory Rate 15 08/03/2024 2:03 PM BOOKING AGENT Oxygen Saturation 98% 08/03/2024 2:03 PM BOOKING AGENT Inhaled Oxygen Concentration - - Weight 84.6 kg (186 lb 6.4 oz) 08/03/2024 2:03 P M BOOKING AGENT Height 180.3 cm (5' 11) 04/23/2022 11:48 AM CDT Body Mass Index 26 04/23/2022 11:48 AM CDT Plan of Treatment Upcoming Encounters Date Type Department Care Team (Late st Contact Info) Description 02/01/2025 1:00 PM CDT Office Visit [facility] Oncology and Hematology [facility] [address] [place] [address] Scott Taylor MD [address] [facility] [address] [place] [address] Health Maintenance Due Date Last Done Comments DIABETES ANNUAL FOOT EXAM 1966 DIABETES ANNUAL RETINAL EXAM 1966 DIABETES MICROALBUMIN ANNUAL SCREEN 1966 LDL CHOLESTEROL ANNUAL 1966 Traditional Medicare (ACO) A nnual Wellness Visit 1967 ZOSTER VACCINE (1 of 2) 1998 RSV VACCINE (60+ or ) (1 - 1-dose 75+ series) 2023 INFLUENZA VACCINE (#1) 2024 05/14/2020 PNEUMOCOCCAL VACCINE 50+ YEA RS (2 of 2 - PCV) [...] Procedure Name Priority Date/Time Associated Diagnosis Comments HEMOGLOBIN A1C Routine 08/20/2021 from Last 3 Months or Most Recently Relevant to Health Maintenance Results * HEMOGLOBIN A1C (08/20/2021) Blood us Abstract Provider CHEMISTRY ORDERABLES Final Res ult from Last 3 Months or Most Recently Relevant to Health Maintenance Insurance MEDICARE PART A AND B [facility] SU[facility] Care Teams Proration Clerk Relationship Specialty Start Date End Date Bety Rollins PA PCP - General Physician Batter Out 10/25/20
[2025-01-26 10:03] LABS: Basophils Percent Auto 0.3 % (0.2-1.2); Eosinophils Percent Auto 0.1 % (0-4.4); Hemoglobin 11.8 g/dL (14.0-18.0); Immature Granulocyte Absolute 0.12 K/mm3 (0.00-0.031); Immature Granulocyte Percent A 1.7 % (0-0.5); Lymphocytes Absolute Auto 1.62 K/mm3 (0.9-3.2); Mean Corpuscular HGB Conc 32.8 g/dl (32-36); Mean Corpuscular Hemoglobin 29.8 pg (26-34); Mean Corpuscular Volume 90.9 fl (80-100); Mean Platelet Volume 10.2 fl (7.4-10.4); Monocytes Absolute Auto 0.7 K/mm3 (0.1-0.6); Monocytes Percent Auto 10.5 % (2.6-8.5); Neutrophils Absolute Auto 4.5 K/mm3 (1.3-6.7); Neutrophils Percent Auto 64.4 % (45.5-73.1); Platelet Count Result 245 k/mm3 (150-375); Red Blood Count 3.96 M/mm3 (4.6-6.20); Red Cell Distribution Width 12.4 % (11.5-14.5)
[2025-01-26 11:23] LABS: Iron 87 ug/dL (49-181)
[2025-01-26 11:28] LABS: Alanine Aminotransferase 21 U/L (6-50); Albumin Level 4.1 g/dL (3.5-5.1); Alkaline Phosphatase 53 U/L (38-126); Anion Gap 10 mmol/L (4-12); Aspartate Amino Transferase 33 U/L (17-59); Bilirubin,Total 0.2 mg/dL (0.2-1.3); Blood Urea Nitrogen 28 mg/dL (9-20); Carbon Dioxide 22 mmol/L (22-30); Chloride 108 mmol/L (98-107); Estimated Glomerular Filt Rate 59; Glucose 115 mg/dL (65-110); Sodium 140 mmol/L (137-145); Total Protein 7.2 g/dL (6.3-8.2)
[2025-01-26 11:32] LABS: Percent Iron Saturation 34 % (20-50)
[2025-01-26 16:25] LABS: Carcinoembryonic Antigen 0.4 ng/mL (0.0-3.0)
== END 2025-01-26 09:42 | disposition home or self-care (01) ==
PROVIDERS: PCP Urology; Visit Provider Internal Medicine Hematology & Oncology
DX: C20 Malignant neoplasm of rectum (principal); D64.9 Anemia, unspecified
CPT/HCPCS: 36415; 80053; 82378; 82728; 83540; 83550; 85025

== ENCOUNTER 2025-04-25 12:34 | Outpatient (CLI) | payer MEDICARE, SELFPAY ==
--- OUTSIDE RECORDS SUMMARY | 2000-05-13 05:45 | XMS_ITS | Continuity of Care Document ---
Author Organization [facility] Address [address] [address] [place] [address] Phone Care Team Providers Care Clinical Social Work Aide Name Role Phone Arana OD, Dennis Unavailable Unavailable Advance Directives Directive Yes / No Effective Date File Name No Information Encounters Encounter Description Practice Location Reason(s) For Visit Diagnoses Date Provider Providers Copied on Encounter [facility], [address], [place], [place], [id number], [place] tel:[phone] [facility] No Information Sep-2 1-200 0 Arana OD Dennis. [address] , [address], [place], [address], [place]. tel:[phone] Family History Family Member Type Diagnosis Age At Onset No Information Payers Payer name Insurance type Covered alliance party ID Authoriza tion(s) No Information Social History Type Description Quantity Date Captured Comments Sex Male Smoking Status No Information Chief Complaint And Reason For Visit No Information Reason For Referral Reason For Referral No Information History Of Present Illness Encounter Date Complaint History Of Prese nt Illness No Information Functional Status Date Functional Assessmen t No Information Instructions Date Instruction Additional Infor mation No Information Assessments Type Assessment Date No Information Patient Care Teams Name Effective Dates (start - stop) Status Members No Information
--- OUTSIDE RECORDS SUMMARY | 2008-06-26 19:00 | XMS_ITS | Continuity of Care Document ---
[facility] Address [address] [place] [address] Phone Care Team Providers Care Foundation Coordinator Name Role Phone Ravi Aguilar MD Unavailable Unavailable Advance Directives Directive Yes / No Effective Date File Name No Information Encounters Encounter Description Practice Location Reason(s) For Visit Diagnoses Date Provider Providers Copied on Encounter [facility], [id number] [place] [address], [id number], tel:[phone] [facility] No Information Jeff Rodrigues. [address], [id number], . tel:[phone] [facility], [id number] [place] [address], [id number], tel:[phone] [facility] ADV EFF MED/BIOL SUB NOS Jeff Rodrigues. [address], [id number], . tel:[phone] Family History Family Member Type Diagnosis Age At Onset No Information Payers Payer name Insurance type Covered green party ID Authoriza tion(s) No Information Social [...]
--- OUTSIDE RECORDS SUMMARY | 2024-10-12 11:30 | XMS_ITS | Continuity of Care Document ---
Author Organization [facility]ly [facility], [facility]–1983 and [place] [facility] Address [address] [place] [id number] Phone Care Team Providers Care Practice Representative Name Role Phone Luli Avalos DO Unavailable Unavailable Advance Directives Directive Yes / No Effective Date File Name No Information Encounters Encounter Description Practice Location Reason(s) For Visit Diagnoses Date Provider Providers Copied on Encounter [facility], [address] [place] [address], [id number], tel:[phone] No Information Robbie Rockwell. [address] [place] [address], [id number], [place]. tel:[phone] Family History Family Member Type Diagnosis Age At Onset No Information Payers Payer name Insurance type Covered republican ID Authoriza tion(s) No Information Social History [...]
--- OUTSIDE RECORDS SUMMARY | 2025-04-25 13:45 | XMS_ITS | Clinical Summary ---
Author Organization [facility] Corinne baeza [facility] Address [address] [place] [address] Care Team Providers Care Client Representative Name Role Phone Bety Rollnis Primary Care Provider [phone] Allergies Active Allergy Reactions Criticality Noted Date Comments Latex Other (See Comments) 10/25/2020 Cerner Allergy Text Annotation: Latex Penicillins Rash Low 10/25/2020 Sulfa (Sulfonamide Antibiotics) Rash Low 10/25/2020 Medications SITagliptin (JANUVIA) 100 mg Tablet Take 100 mg by mouth. 0 Active metFORMIN (GLUCOPHAGE) 1,000 mg tablet Take 1,000 mg by mouth. 0 Active aspirin (ECOTRIN [...] tablet Take 2.5 mg by mouth daily. 4 Active tamsulosin (FLOMAX) 0.4 mg capsule Take 0.4 mg by mouth daily at bedtime. 4 Active rosuvastatin (CRESTOR) 40 mg tablet Take 40 mg by mouth daily. 5 01/25/20 26 Active Active Problems Problem Noted Date Diagnosed Date Chronic anemia 08/25/2021 Rectal cancer 10/25/2020 Encounters Date Type Department Care Team Description 04/24/2025 External Device Data STL ABSTRACTION Provider, Abstract 04/10/2025 External Device Data STL ABSTRACTION Provider, Abstract 02/06/2025 External Device Data STL ABSTRACTION Provider, Abstract 02/02/2025 Orders Only [facility] Oncology and Hematology - [place] [address] [place] [address] Scott Taylor MD 02/01/2025 1:00 PM CDT Office Visit [facility] Oncology and Hematology - [place] [address] [place] [address] Scott Taylor MD Rectal cancer (CMS/HCC) (Primary Dx); Chronic anemia 01/29/2025 Orders Only [facility] Oncology and Hematology - [place] [address] [place] [address] Scott Taylor MD from Last 3 Months [...] or relatives? 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 Gender Identity Not on file Sexual Orientation Not on file Last Filed Vital Signs Vital Sign Reading Time Taken Comments Blood Pressure 138/74 02/01/2025 1:00 PM CDT Pulse 60 02/01/2025 1:00 PM CDT Temperature 36.4 C (97.5 F) 02/01/2025 1:00 PM CDT Respiratory Rate 15 02/01/2025 1:00 PM CDT Oxygen Saturation 97% 02/01/2025 1:00 PM CDT Inhaled Oxygen Concentration - - Weight 83.9 kg (185 lb) 02/01/2025 1:00 PM CDT Height 180.3 cm (5' 11) 04/23/2022 11:48 AM CDT Body Mass Index 25.8 04/23/2022 11:48 AM CDT Plan of Treatment Upcoming Encounters Date Type Department Care Team (Late st Contact Info) Description 08/08/2025 10:00 AM PULMONOLOGIST/INTENSIVIST Office Visit [facility] Oncology and Hematology - [place] [address] [facility] [address] [place] [address] Scott Taylor MD [address] [facility] [address] [place] [address] Health Maintenance Due Date Last Done Comments DIABETES ANNUAL FOOT EXAM 1966 DIABETES ANNUAL RETINAL EXAM 1966 DIABETES MICROALBUMIN ANNUAL SCREEN 1966 LDL CHOLESTEROL ANNUAL 1966 ZOSTER VACCINE (1 of 2) 1998 PNEUMOCOCCAL VACCINE 50+ YEA RS (2 of 2 - PCV) 05/15/2020 05/15/2019, 08/23/2018 RSV VACCINE (60+ or ) (1 - 1-dose 75+ series) 2023 INFLUENZA VACCINE (#1) 2025 05/14/2020 DIABETES HBA1C Q 6 MONTHS 04/16/20252024, 04/12/2024, 03/25/2023, Additional history exists DTAP/TDAP/TD VACCINES (2 - T d or Tdap) 11/01/2029 11/02/2019, 08/23/2011 COLORECTAL SCREENING Discontinued 11/19/2021 Colorectal Cancer Screening Discontinued FIT-DNA Q 3 years Discontinued FIT/FOBT Q 1 year Discontinued Flex Sig/CT Colonography Q 5 years Discontinued Procedures Procedure Name Priority Date/Time Associated Diagnosis Comments COMPREHENSIVE METABOLIC PANEL Routine 01/26/2025 2:10 PM CDT CBC WITH AUTODIFFERENTIAL Routine 2024 1:54 PM CDT COMPREHENSIVE METABOLIC PANEL Routine 01/26/2025 11:17 AM CDT HEMOGLOBIN A1C Routine 08/20/2021 from Last 3 Months or Most Recently Relevant to Health Maintenance Results * COMPREHENSIVE METABOLIC PANEL (01/26/2025 2:10 PM CDT) Only the most recent of2 resultswithin the time period is included. Blood Scott Taylor MD CHEMISTRY ORDERABLES Final Resu lt * CBC WITH AUTODIFFERENTIAL (01/26/2025 1:54 PM CDT) Blood Scott Taylor MD HEMATOLOGY ORDERABLES Final Res ult * HEMOGLOBIN A1C (08/20/2021) Blood Abstract Provider CHEMISTRY ORDERABLES Final Res ult from Last 3 Months or Most Recently Relevant to Health Maintenance Insurance MEDICARE PART A AND [facility] Care Teams Client Representative Relationship Specialty Start Date End Date Bety Rollins PA PCP - General Physician Tip Inserter 10/25/20
--- OUTSIDE RECORDS SUMMARY | 2025-04-25 13:45 | XMS_ITS | Encounter Summary ---
Author Organization [facility] Address 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 Gender Identity Not on file Sexual Orientation Not on file documented as of this encounter Plan of Treatment Upcoming Encounters Date Type Department Care Team (Late Contact Info) Description 08/08/2025 10:00 AM FRONT END DEVELOPER JAVASCRIPT HTML CSS Office Visit [facility] Oncology and Hematology - [place] [address] [facility] [address] [place] [address] Scott Taylor MD [address] [facility] [address] [place] [address] documented as of this encounter Visit Diagnoses Not on filedocumented in this encounter Care Teams Test Eng Relationship Specialty Start Date End Date Bety Rollins PA PCP - General Physician Cnc Field Service Engineer 10/25/20 documented as of this encounter
--- OUTSIDE RECORDS SUMMARY | 2025-04-25 13:45 | XMS_ITS | Encounter Summary ---
Author Organization [facility] Address [address] [place] [address] Care Team Providers Care Pickle Processor Name Role Phone Bety Rollins Primary Care Provider [phone] Encounter Details Date Type Department Care Team (Late st Contact Info) Description 04/24/2025 External Device Data [facility] ABSTRACTION Provider, Abstract NO ADDRESS ON FILE Social History Tobacco Use Types Packs/Day Years Used Date Smoking Tobacco: Former Smokeless Tobacco: Never Comments:over 40 years ago a nd wasnt much Alcohol Use Standard Drinks/Week Comments [...] or relatives? 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 Gender Identity Not on file Sexual Orientation Not on file documented as of this encounter Plan of Treatment Upcoming Encounters Date Type Department Care Team (Late st Contact Info) Description 08/08/2025 10:00 AM BISQUE FINISHER Office Visit [facility] Oncology and Hematology - [place] [address] [place] [address] [facility] [address] [place] [address] Scott Taylor MD [address] [facility] [address] [place] [address] documented as of this encounter Visit Diagnoses Not on filedocumented in this encounter Care Teams Pickle Processor Relationship Specialty Start Date End Date Bety Rollins PA PCP - General Physician Electro Winning Operator 10/25/20 documented as of this encounter
--- OUTSIDE RECORDS SUMMARY | 2025-04-25 13:45 | XMS_ITS | Clinical Summary ---
Author Organization [facility] Address [address] [place] [address] Care Team Providers Care Video Control Operator Name Role Phone Bety Rollins Treasure RAMIREZ Primary Care Pr ovider Lazaro Mercedes MD Unavailable [phone] Bassam Heredia MD Unavailable Allergies Active Allergy [...] (81 mg total) by mouth daily Active zlakwria-sxx-GS -lycopen-lutein 300-600-300 mcg tabletIndicatio ns:Vitamin Deficiency Prevention Take by mouth Activ e metFORMIN (GLUCOPHAGE) 1,000 mg tabletIndicatio ns:type 2 [...] on 01/24/2025 SITagliptin phosphate (JANUVIA) 100 mg tabletIndicatio ns:type 2 diabetes mellitus Take 1 tablet (100 mg total) by mouth daily 30 tablet 4 Active finasteride (PROSCAR) 5 mg tablet Take 1 tablet (5 mg total) by mouth daily 4 Active tamsulosin (FLOMAX) 0.4 mg extended release capsule Take 1 capsule (0.4 mg total) by mouth nightly 4 Active amLODIPine (NORVASC) 2.5 mg tabletIndicatio ns:Hypertension associated with diabetes (HCC) TAKE 1 TABLET(2.5 MG) BY MOUTH DAILY 90 tablet 1 5 Active rosuvastatin (CRESTOR) 40 mg tabletIndicatio ns:Hyperlipidem ia associated with type 2 diabetes mellitus (HCC),Coronary artery disease of [place] artery of [place] heart with stable angina pectoris Take 1 tablet (40 mg total) by mouth daily 90 tablet 3 5 01/25/20 26 Active metoprolol tartrate (LOPRESSOR) 25 mg immediate release tablet TAKE 1 TABLET(25 MG) BY MOUTH TWICE DAILY 180 tablet 5 Active Active Problems Problem Noted Date Diagnosed Date Left carotid bruit 12/02/2023 Hyperlipidemia associated with type 2 diabetes m ellitus 08/03/2022 Hypertension associated with diabetes 08/03/2022 Cardiomyopathy, ischemic 08/03/2022 NSTEMI (non-ST elevated myocardial infarction) 1 Coronary artery disease of n ative heart with stable angina pectoris 06/10/2022 Overview (06/11/2022): Added automatically from request for surgery [id number] Encounters Date Type Department Care Team Description 01/24/2025 9:45 AM CDT Office Visit [facility] Medical Group Cardiology [address] [place] [address] Bassam Heredia MD Hypertension associated with diabetes (HCC) (Primary Dx); Hyperlipidemia associated with type 2 diabetes mellitus (HCC); Coronary artery disease of [place] artery of [place] heart with stable angina pectoris; Cardiomyopathy, ischemic from Last 3 Months Surgical History Surgery Date Site/Laterality Comments APPENDECTOMY 1973 CATARACT EXTRACTION 2013 COLON SURGERY 11/09 CORONARY ARTERY BYPASS GRAFT 06/13 LASIK 1997 Medical History Medical History Date Comments [...] 36.6 C (97.8 F) 07/09/2022 10:21 AM 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 ASSEMBLER Respiratory Rate 16 11/03/2022 10:38 AM CDT [...] 12/10/2022 06/11/2022 Depression Screening 06/10/2023 06/10/2022, 06/10/20 Fall Risk Assessment 06/17/2023 06/17/2022 eGFR 06/23/2023 06/23/2022, 05/24, 06/15/2022, Additional history exists Covid-19 Vaccine (2023-2 5 season) 2024 05/03/2022, 05/21/2021, 10/14/2020, Additional history exists Influenza Vaccine (#1) 2025 , 05/30/2021, 05/14/2020, Additional history exists Lipid [...] diabetes mellitus (HCC) Coronary artery disease of [place] artery of [place] heart with stable angina pectoris EGFR Routine [...] Capillary blood 01/24/2025 1 0:08 AM CDT us Bassam Heredia MD POINT OF CARE TEST ORDERA BLES Final Result * (ABNORMAL) eGFR (06/23/2022 12:30 PM CDT) eGFR 47(L) 90 - 130 mL/min/1. 73 m2 [facility] Comment: Interpretive Data Reference Interval Normal >/= [...] ORDERABLES Final Res ult SAMUEL HARTMANN [facility] Department [place] [address] * CT Abdomen Pelvis W Contrast (06/15/2022 [...] Concetta Aguilar NP IMG CT PROCEDURES Sherry suzanna Result * Hepatitis panel, acute (06/12/2022 3:02 PM CDT) Hep A IgM Nonreactive Nonreactive SAMUEL Comment: Interpretive Data: If Hep A IgM Ab is reported as Equivocal, a new sample should be drawn in two weeks for testing. Current interpretive data was last revised on 19. Hep B core IgM Nonreactive Nonreactive [facility] Comment: Interpretive Data If HepB Core IgM [...] last revised on 2019. HepBsAg Nonreactive Nonreactive [facility] Blood 06/12/2022 3:02 PM CDT 06/12/2022 3:17 PM CDT Lazaro Mercedes MD LAB MICROBIOLOGY - GENERAL O RDERABLES Final Result Performing Organization Address City/[facility]/ZIP Co de Phone Number SAMUEL [id number] Department [place] [address] * (ABNORMAL) Hemoglobin A1c (06/11/2022 5:30 AM CDT) Hgb A1C 5.8(H) 4.0 - 5.6 % SAMUEL Estimated Average Glucose 120 mg/dL [facility] Comment: The ADA recommends reporting an estimated Average Glucose (eAG) with all Hemoglobin A1c results using the equation derived from a study of 507 normal and diabetic adults. Minority populations were underrepresented and children were not included. (Diabetes Care 31:5984-7633, 2008). The eAG is not equivalent to a fasting glucose. Blood 06/11/2022 5:30 AM CDT 06/11/2022 5:48 AM CDT Marcos RAMIREZ LAB BLOOD ORDERABLES Final Result Performing Organization Address City/[facility]/ZIP Co de Phone Number SAMUEL MURPHY [address] Department [place] [address] from Last 3 Months or Most Recently Relevant to Health Maintenance Insurance MEDICARE [facility] MEDICARE SUPPLEMENT INSURANCE [place] [id number] [place] [address] MEDICARE [facility] MEDICARE SUPPLEMENT INSURANCE MEDICARE [employer] MEDICARE SUPPLEMENT INSURANCE MEDICARE Advance Directives For more information, please contact: [phone] * Full Code (Latest Code Status on File) Date Activated Date Inactivated Comments 06/11/2022 1:10 AM 06/17/2022 10:40 PM Care Teams Video Control Operator Relationship Specialty Start Date End Date Bety Rollins PA PCP - General Physician Grease Packer 06/09/22 Lazaro Mercedes MD Surgeon Cardiothoracic Surgery 06/17/22 Bassam Heredia MD [address], [address] [place] [address] Consulting Physician Cardiology 06/17/22
[2025-04-25 18:31] LABS: Hematocrit 36.5 % (42.0-52.0); Hemoglobin 11.7 g/dL (14.0-18.0); Mean Corpuscular HGB Conc 32.1 g/dl (32-36); Mean Corpuscular Hemoglobin 29.5 pg (26-34); Mean Corpuscular Volume 92.2 fl (80-100); Platelet Count Result 206 k/mm3 (150-375); Red Blood Count 3.96 M/mm3 (4.6-6.20); White Blood Count 5.7 K/mm3 (4.5-10.0)
[2025-04-25 18:43] LABS: Alanine Aminotransferase 19 U/L (6-50); Albumin Level 4.5 g/dL (3.5-5.1); Alkaline Phosphatase 63 U/L (38-126); Anion Gap 10 mmol/L (4-12); Aspartate Amino Transferase 45 U/L (17-59); Bilirubin,Total 0.5 mg/dL (0.2-1.3); Blood Urea Nitrogen 31 mg/dL (9-20); Calcium 9.6 mg/dL (8.4-10.2); Carbon Dioxide 23 mmol/L (22-30); Chloride 106 mmol/L (98-107); Cholesterol 122 mg/dL (0-200); Estimated Glomerular Filt Rate 52; Glucose 88 mg/dL (65-110); HDL Direct 29 mg/dL; Potassium 4.7 mmol/L (3.4-5.0); Sodium 139 mmol/L (137-145); Total Protein 8.0 g/dL (6.3-8.2); Triglycerides 113 mg/dL (<150)
[2025-04-25 18:58] LABS: Hemoglobin A1C 5.7 % (<5.7)
[2025-04-25 19:07] LABS: MALB Creatinine Ratio 196.6 mg/g (0-30)
== END 2025-04-25 12:35 | disposition home or self-care (01) ==
LOC: ANHGOSHLAB 12:35
PROVIDERS: PCP Urology; Visit Provider Physician Assistant
DX: E11.9 Type 2 diabetes mellitus without complications (principal); E78.5 Hyperlipidemia, unspecified; D64.9 Anemia, unspecified; Z79.899 Other long term (current) drug therapy
CPT/HCPCS: 36415; 80053; 80061; 82043; 83036; 85027